=== PATIENT | female | born 1975 | race Caucasian/White ===

== ENCOUNTER 2022-07-17 04:20 | Emergency (ER) | payer OTHER, SELFPAY ==
--- NOTE | 2022-07-17 04:45 | RAD_ITS ---
INDICATION: PALPITATIONS EXAMINATION/TECHNIQUE: X-RAY - XR Chest 1 View COMPARISON: Chest radiograph 12/24/2015. Findings: Single frontal view of the chest. LUNG PARENCHYMA: No acute focal airspace disease or mass lesion. PLEURA: No pleural effusion. No pneumothorax. HEART/GREAT VESSELS: Cardiomediastinal silhouette is unremarkable. BONES: Osseous structures are unremarkable for age. RAD/Chest 1 View (Portable) IMPRESSION: Chest with no acute disease. Electronically Signed: Elder Phillips MD at 5:14 EDT ,
--- NOTE | 2022-07-17 06:15 | EX.ED.DYSGE1 ---
HPI History of Present Illness Chief Complaint: Hypertension Informant: patient Narrative Narrative: Patient presents secondary to elevated blood pressure. She is a history of hypertension but has been off of her blood pressure medication for a little over a year. She states last evening and then waking in the middle the night tonight she felt a pulsating sensation in her ears. She checked her blood pressure at home and systolic pressure was in the 160s. Her heart rate was in the 80s. She denies chest pain. PFSH PFSH Medical History Hypertension Obstructive sleep apnea Home Medications l.norgest-eth.estradiol triphasic 50-30 (6)/75-40(5)/125-30(10) tablet (Myzilra) 1 ea PO DAILY 12/24/15 [History Last Taken 12/23/15] hydrocodone-acetaminophen 5-325mg 5mg-325mg (Barclay) 1 - 2 ea PO Q4H PRN PRN Pain #20 tabs 03/28/16 [Rx Last Taken Unknown] Allergy/AdvReac Type Severity Reaction Status Date / Time Penicillins [PCN] Allergy Rash Verified 03/28/16 11:15 Social History Smoking Status: Never smoker ROS ROS ED Constitutional Constitutional ED: Denies chills or fever(s) Eyes Eyes: Denies change in vision or discharge from eye(s) ENT ENT ED: Denies discharge from eye(s), rhinorrhea or sore throat Cardiovascular Cardiovascular: Denies chest pain or palpitations Respiratory/Chest Respiratory/Chest: Denies cough or dyspnea Gastrointestinal Gastrointestinal: Denies abdominal pain, diarrhea, nausea or vomiting Genitourinary Genitourinary ED: Denies dysuria Musculoskeletal Musculoskeletal: Denies back pain or extremity pain Integumentary Denies Abrasions or rash Neurologic Neurologic: Denies headache(s) or weakness Allergic/Immunologic Allergic/Immunologic ED: Denies lip swelling or urticaria EXAM Physical Exam Const Positive well nourished and well developed General Appearance ED: well developed HEENT Reports normocephalic and head/scalp atraumatic Eyes PERRL and EOMs intact bilaterally Neck supple Chest Wall inspection of chest normal and palpation of chest normal Resp normal respiratory effort and clear to auscultation bilaterally Cardio regular rate and regular rhythm GI normal to inspection, nondistended, normoactive bowel sounds Palpation: soft Extremity normal to inspection Neuro oriented x3 and no sensory deficits noted Sensorium / Orientation: alert Motor Exam: strength 5/5 throughout Psych mental status grossly normal Skin no rashes or lesions noted MDM MDM MDM Narrative Medical decision making narrative: 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 EKG obtained to evaluate for cardiac arrhythmia/ischemia. Chest x-ray obtained to evaluate for acute lung pathology, cardiac size, or mediastinal abnormality. Labwork obtained to evaluate for leukocytosis, anemia, and electrolyte derangement. Lab Data Attestation: I reviewed the patient's lab results. Lab results narrative: CBC and chemistry studies unremarkable. Troponin is normal at 5. Radiography Chest X-Ray - ED: 1 View, Read by ED Physician, Normal, Heart, Lungs and Mediastinum EKG Initial EKG: Attestation: I personally reviewed and interpreted this EKG as follows: Interpretation: Sinus Rhythm (Sinus at 81 bpm with no acute ischemia.) Differential Diagnosis Chest pain/SOB: ACS ACS: Positive for no evidence of ACS based on cardiac biomarkers and EKG without ischemia and aortic dissection Reason(s) Aortic dissection less likely:: Positive for normal vascular exam, normal neurological exam and no widened mediastinum on CXR Treatment and Re-Evaluation :: On repeat evaluation patient's resting comfortably. Her systolic blood pressure has been in the 130s and 140s after her initial blood pressure was elevated at 179/98. Heart rate has been normal. Work-up at this time reveals no evidence of any organ damage from hypertension. I did recommend she keep a journal of her blood pressures over the next week or 2 and follow-up with her primary care physician. This will help them determine if she needs to be restarted on her blood pressure medication. Return instructions have been provided. Discharge Plan Triage Chief Complaint: Hypertension ED Provider: Debora Tolentino Dx/Rx/DC Orders Clinical Impression: Hypertension Instructions: ED Hypertension, To Be Confirmed Prescriptions: No Action levonorg-eth estrad triphasic [Myzilra] 1 EACH tablet 1 ea PO DAILY hydrocodone-acetaminophen [Barclay] 1 EACH tablet 1 - 2 ea PO Q4H PRN PRN (Reason: Pain) Qty: 20 0RF Primary Care Provider: Shaun Watkins Referrals: Shaun Watkins MD [Primary Care Provider] - 1-2 Weeks Disposition Disposition: Home, Self Care
[2022-07-17 08:24] LABS: Anion Gap 7 (5-15); BUN 10 mg/dL (7-18); BUN/Creat Ratio 13.2 RATIO (10-20); Calcium,Total 8.3 mg/dL (8.5-10.1); Chloride 106 mmol/L (98-107); Creatinine, Serum 0.76 mg/dL (0.55-1.02); EST Glomerular Filtration Rate 86 mL/min (>60); Est Glom Filt Rate - Afr Amer 104 mL/min (>60); Glucose 108 mg/dL (74-106); Potassium 3.5 mmol/L (3.5-5.1); Sodium Level 138 mmol/L (136-145); Troponin-I HS 5 pg/mL (3.0-54.0)
[2022-07-17 10:36] LABS: Hematocrit 38.8 % (37-47); Hemoglobin 13.2 g/dL (12.0-15.0); Red Blood Count 4.17 M/mm3 (4.2-5.4); White Blood Count 8.8 K/mm3 (4.4-11.0)
[2022-07-17 10:50] LABS: Basophil% 0.3 % (0-1); Eosinophils% 2.6 % (0-5); Lymphocyte % 40.8 % (19-41); Mean Corpuscular Hgb 31.7 pg (27.0-32.0); Mean Platelet Vol. 8.4 fl (6.2-12.0); Monocyte% 6.9 % (0-10); Neutrophil % 49.2 % (47-70); Platelet Count 277 K/mm3 (150-450); RBC Distribution Width CV 12.9 % (11.6-14.6); RBC Distribution Width SD 44.2 fl (35.1-43.9)
[2022-07-17 10:51] LABS: Absolute Lymphocyte Count 3.59 X10^3/uL (0.83-4.51); Absolute Neutrophil Count 4.3 X10^3/uL (2.0-7.7); Basophil# 0.03 X10^3/uL; Eosinophil# 0.23 X10^3/uL; Lymphocyte # 3.59 X10^3/ul (0.83-4.51); Monocyte# 0.61 X10^3/uL; NRBC Flagged by Analyzer 0 % (0-5); Neutrophil # 4.31 X10^3/uL (2.7-7.7)
== END 2022-07-17 06:25 | disposition home or self-care (01) ==
PROVIDERS: Emergency Provider Emergency Medicine; PCP Family Medicine; Visit Provider Emergency Medicine
DX: I10 Essential (primary) hypertension (principal); G47.33 Obstructive sleep apnea (adult) (pediatric)
CPT/HCPCS: 36415; 71045; 80048; 84484; 85025; 93005; 99284; A4216

== ENCOUNTER 2024-11-27 20:47 | Emergency (ER) | payer BC, SELFPAY ==
[2024-11-27 20:47] VITALS: BP 167/101; PULSE 102; RESP 18; TEMP 36.4; O2SAT 98; BMI 41.5
--- NOTE | 2024-11-27 22:03 | ED.VIS.FEGU ---
HPI HPI - Female History of Present Illness Chief Complaint: Vag Bleeding Informant: patient Pain Pain: Positive for Pelvic Pain Timing: Intermittent Quality: Positive for Cramping Current Severity: Gone Maximum Severity: Moderate Bleeding Issue: Positive for Vaginal bleeding and Passing clots Onset: Days Timing: Intermittent Associated Symptoms Associated Symptoms: Negative for Dysuria Test: Positive Control: No control P: 4 Ab: 0 Narrative Narrative: 49-year-old female history of hypertension. For the last year has had intermittent heavy vaginal bleeding. Sometimes she will miss her period of the times of the heavy. Last month she had 15 days of heavy bleeding. She saw a nurse practitioner at the [facility] reportedly they did blood work she was not anemic. Ultrasound showed adenomyosis. They are planning on doing a uterine biopsy. She denies any prior [employer] surgeries. She is on no blood thinners. Prior similar symptoms: Yes Recent Illness/Hospitalization: No PFSH PFSH Medical History Adenomyosis Obstructive sleep apnea Hypertension Home Medications ?Medication ?Instructions ?Recorded ?Last Taken ?Type cholestyramine (with sugar) 4 gram 4 ea PO DAILY 11/27/24 Unknown History oral powder lisinopril 20 mg tablet 20 mg PO DAILY 11/27/24 Unknown History Allergy/AdvReac Type Severity Reaction Status Date / Time Penicillins (PCN) Allergy Rash Verified 11/27/24 20:47 Social History Smoking Status: Never smoker ROS ROS ED ROS Narrative Vaginal bleeding intermittent cramping. Constitutional Constitutional ED: Denies chills or fever(s) ENT ENT ED: Denies ear pain Cardiovascular Cardiovascular: Denies chest pain Respiratory/Chest Respiratory/Chest: Denies cough or dyspnea Gastrointestinal Gastrointestinal: Denies abdominal pain Genitourinary Genitourinary ED: Denies dysuria Musculoskeletal Musculoskeletal: Denies arthralgias Integumentary Denies abscess Neurologic Neurologic: Denies headache(s) Endocrine Endocrinology: Denies heat intolerance Hematologic/Lymphatic Hematologic/Lymphatic: Denies easy bleeding, easy bruising or lymphadenopathy Allergic/Immunologic Allergic/Immunologic ED: Denies mouth swelling, tongue swelling or urticaria EXAM Physical Exam Narrative Exam Narrative: 49-year-old female sitting upright in bed. at bedside. Vital signs are stable afebrile. H EENT exam pupils round reactive light. Moist mucous membranes. Lungs clear to auscultation bilaterally. Heart regular rhythm rate about 100 no murmur. Chest wall ribs nontender. Abdomen soft nontender. No peritoneal signs. Moving all 4 extremities. Nontender no edema. Back exam nontender. Neurologically she is awake and alert. Answering questions following commands. Const Vital Signs: 11/27/24 20:47 11/27/24 22:47 Temperature 97.6 F L Temperature Source Temporal Pulse Rate 102 H 83 Respiratory Rate 18 15 Blood Pressure 167/101 H 125/83 H Blood Pressure Mean 123 97 Pulse Ox 98 98 Oxygen Delivery Method Room Air Room Air Positive well nourished and well developed; Negative for cachectic, contractures or unkempt General Appearance ED: well developed and NAD; Negative for unkempt, cachectic or contractures Nutritional Appearance: Negative for cachectic HEENT Reports moist mucous membranes Eyes PERRL and EOMs intact bilaterally Neck no lymphadenopathy, supple and no JVD Chest Wall inspection of chest normal and palpation of chest normal Resp normal respiratory effort and clear to auscultation bilaterally Cardio regular rate, regular rhythm, S1 normal heart sound, no murmurs and no JVD GI normal to inspection, nondistended, normoactive bowel sounds, soft to palpation, non-tender, non-distended and no masses Auscultation: normoactive bowel sounds Palpation: Negative for tender, guarding or rigid Back/Spine no CVA tenderness Extremity normal to inspection and full ROM Neuro oriented x3 and CN's II-XII intact bilaterally Sensorium / Orientation: alert, oriented to person, oriented to place and oriented to time Psych mental status grossly normal Appearance: Negative for unkempt Skin no rashes or lesions noted and no wounds MDM MDM MDM Narrative Medical decision making narrative: 54-nzrd-[age]jo-year-old female with vaginal bleeding and irregular periods and heavier bleeding over the last year. This may be perimenopausal versus other etiologies. She is already had an ultrasound at the [facility] recently. I will check her blood count test set of electrolytes. Currently she is not having any pain nor does she want anything for pain. Repeat exam unchanged. Patient be discharged home with outpatient follow-up with her [facility]. History & Record Review Discussion w/independent historian: Patient and Family Additional record(s) reviewed:: Prior inpatient record, Prior outpatient record, Prior ED visit and Prior labs Lab Data Attestation: I reviewed the patient's lab results. Lab results narrative: CBC unremarkable. White count 8. H&H 12.6 and 37.2. Platelets 266. Electrolytes show a gap of 12. Normal BUN and creatinine. Glucose 102. Serum test is negative. Labs: Laboratory Results - last 24 hr 11/27/24 11/27/24 21:42 22:08 WBC 8.0 RBC 3.93 L Hgb 12.6 Hct 37.2 MCV 94.7 MCH 32.1 H MCHC 33.9 RDW Std Deviation 46.1 H RDW Coeff of Mariola 13.2 Plt Count 266 MPV 8.8 Sodium 139 Potassium 4.2 Chloride 104 Carbon Dioxide 23.0 Anion Gap 12 BUN 12 Creatinine 0.70 Estim Creat Clear Calc 115.17 Est GFR (MDRD) Non-Af 105 BUN/Creatinine Ratio 17.7 Glucose 102 H Calcium 9.0 Serum , Qual NEGATIVE Discharge Plan Triage Chief Complaint: Vag Bleeding ED Provider: Eldon Carlson Dx/Rx/DC Orders Clinical Impression: Abnormal vaginal bleeding Instructions: ED Dysfunctional Uterine Bleeding Prescriptions: No Action lisinopril 20 mg tablet 20 mg PO DAILY cholestyramine (with sugar) 4 gram powder 4 ea PO DAILY Primary Care Provider: Shaun Watkins Referrals: Debora Mg MD [Med Staff - Active Staff] - As soon as possible Shaun Watkins MD [Primary Care Provider] - Activity Restrictions/Additional Instructions: Follow-up with one of the [facility] doctors [facility] at the local [facility] facility. Your blood counts were good tonight. Print Language: Micronesian Disposition Disposition: Home, Self Care
[2024-11-27 22:14] LABS: Hematocrit 37.2 % (37-47); Hemoglobin 12.6 g/dL (12.0-15.0); Mean Corp Hgb Conc 33.9 g/dL (32-36); Mean Corpuscular Volume 94.7 fL (81-99); Mean Platelet Vol. 8.8 fl (6.2-12.0); Platelet Count 266 K/mm3 (150-450); RBC Distribution Width CV 13.2 % (11.6-14.6); RBC Distribution Width SD 46.1 fl (35.1-43.9); Red Blood Count 3.93 M/mm3 (4.2-5.4); White Blood Count 8.0 K/mm3 (4.4-11.0)
--- OUTSIDE RECORDS SUMMARY | 2024-11-27 22:17 | XMS RPT_ITS | CCD ---
Author Organization [facility] Care Team Providers Care Beekeeper Farmer Name Role Phone DUANE ROWLAND Unavailable Unavailable Debora Tolentino Attending Unavailable Duane Rowland Primary Care Unavailable Duane Rowland MD Primary Care Provider Duane Rowland MD Primary Care Provider Tannhof MEDIA CLERK.Marilee HORAN Unavailable Arthur MEDIA CLERK.Alfredo HORAN Unavailable MAXIMILIANO MARROQUIN Referring Unavailable DUANE ROWLAND Primary Care Unavailable MAXIMILIANO MARROQUIN Referring Unavailable DUANE ROWLAND Primary Care Unavailable MAXIMILIANO MARROQUIN Attending Unavailable DUANE ROWLAND Primary Care Unavailable MAXIMILIANO MARROQUIN Referring Unavailable DUANE ROWLAND Primary Care Unavailable Allergies Allergy Classification Reported Allergen(s) Allergy Type Date of Onset Reaction(s) Facility Penicillins (antibiotic) (3 sources) Penicillins Drug Allergy 5 [facility] (20 sources) Penicillins; Translations: [PENICILLINS] Propensity to adverse reactions to drug (disorder) 5 [facility] Medications Current Medications Medication Drug Class(es) Dates Sig (Normalized) Sig (Original) acetaminophen 325 mg / HYDROcodone bitartrate 5 mg oral tablet (1 source) Opioid Agonist Start: 03-28-2016 Hydrocodone-Acetam inophen ([place] 5-325 Tablet) 1 EACH tablet Active 1 - 2 EACH PO EVERY 4 HOURS NEEDED March 28, 2016 2:29pm azithromycin 500 mg oral tablet (1 source) Macrolide Antimicrobial Start: 05-18-2022 End: 05-23-2022 take 1 tablet by mouth once daily azithromycin (ZITHROMAX) 500 mg tablet Take 1 tablet by mouth once daily for 5 days. 5 tablet 0 05/18/2022 05/23/2022 Active Comment on above: Take 1 tablet by chula once daily for 5 days. Blood Pressure Test Kit-Large kit (20 sources) Start: 02-04-2019 Blood Pressure Test Kit-Large kit Indications: Hypertension, unspecified type 1 Each once daily. 1 Kit 02/04/2019 Active Start: 02-04-2019 Blood Pressure Test Kit-Large kit Indications: Hypertension, unspecified type 1 Each once daily. 1 Kit 0 02/04/2019 Active Comment on above: 1 Each once daily. Blood Pressure Test Kit-Wrist (BLOOD PRESSURE UNIT) kit (20 sources) Start: 01-03-2019 Blood Pressure Test Kit-Wrist (BLOOD PRESSURE UNIT) kit Indications: Hypertension, unspecified type 1 Each once daily. 1 Kit 01/03/2019 Active Start: 01-03-2019 Blood Pressure Test Kit-Wrist (BLOOD PRESSURE UNIT) kit Indications: Hypertension, unspecified type 1 Each once daily. 1 Kit 0 01/03/2019 Active Comment on above: 1 Each once daily. cholestyramine resin 4000 mg powder for oral suspension (20 sources) Bile Acid Sequestrant Start: 01-06-2022 End: 08-12-2023 take 4 g by mouth once daily cholestyramine- sucrose (QUESTRAN) 4 gram powder Take 4 g by mouth once daily. 378 g 11 08/12/2023 Active Start: 04-03-2020 End: 01-04-2022 take 4 g by mouth once daily cholestyramine-sucrose (QUESTRAN) 4 gram powder Take 4 g by mouth once daily. 378 g 11 04/03/2020 01/04/2022 Discontinued Comment on above: Take 4 g by mouth on ce daily. Levonorg-Eth Estrad Triphasic (1 source) Progestin, Estrogen, Progestin-containing Intrauterine Device Start: 6 Levonorg-Eth Estrad Triphasic (Myzilra) 1 EACH tablet Active 1 EACH PO DAILY December 24, 2015 12:00am fluticasone propionate 0.05 mg/actuat metered dose nasal spray (20 sources) Corticosteroid Start: 0 take 2 spray(s) by mouth once daily fluticasone (FLONASE) 50 mcg/actuation nasal spray Use 2 Sprays in each nostril once daily. Rinse mouth after use. 1 Bottle 11 11/07/2019 Active Comment on above: Use 2 Sprays in each nostril once daily. Rinse mouth after use. lisinopril 20 mg oral tablet (20 sources) Angiotensin Converting Enzyme Inhibitor Start: 4 End: 5 take 1 tablet by mouth once daily lisinopril (ZESTRIL) 20 mg tablet Indications: Hypertension, unspecified type Take 1 tablet by mouth once daily. 30 tablet 5 05/30/2024 11/26/2024 Active Start: 01-14-2021 End: 08-07-2023 take 1 tablet by mouth once daily lisinopril (ZESTRIL) 10 mg tablet Indications: Hypertension, unspecified type Take 1 tablet by mouth once daily. 90 tablet 3 07/17/2022 08/07/2023 Discontinued Comment on above: Take 1 tablet by chula th once daily. Miscellaneous Medical Supply (BLOOD PRESSURE CUFF) mis (20 sources) Start: 02-04-2019 Miscellaneous Medical Supply (BLOOD PRESSURE CUFF) [facility] [place]ications: Hypertension, unspecified type 1 Each once daily. 1 Large Cuff. ICD-10: I10.0 Hypertension 1 Each 02/04/2019 Active Start: 02-04-2019 Miscellaneous Medical Supply (BLOOD PRESSURE CUFF) [facility] [place]ications: Hypertension, unspecified type 1 Each once daily. 1 Large Cuff. ICD-10: I10.0 Hypertension 1 Each 0 02/04/2019 Active Comment on above: 1 Each once daily. 1 Large Cuff. ICD-10: I10.0 Hypertension polymyxin b 79725 unt/ml / trimethoprim 1 mg/ml ophthalmic solution (1 source) Dihydrofolate Reductase Inhibitor Antibacterial, Polymyxin-class Antibacterial Start: 3 End: 3 take 1 drop(s) into the eye(s) four times daily trimethoprim-polymy leticia (POLYTRIM) 10,000 unit- 1 mg/mL ophthalmic solution Use 1 Drop in the right eye four times daily for 7 days. 1.4 mL 0 08/25/2022 09/01/2022 Active Comment on above: Use 1 Drop in the ri ght eye four times daily for 7 days. predniSONE 10 mg oral tablet (5 sources) Start: 4 End: predniSONE (DELTASONE) 10 mg tablet Indications: Allergic contact dermatitis due to plants, except food Take 4 tabs daily x 3 days, then 3 tabs x 3 days, 2 tabs x 3 days, then 1 tab x3 days with food. 30 tablet 0 09/16/2023 09/28/2023 Active Completed/Discontinued Medications Medication Drug Class(es) Dates Sig (Normalized) Sig (Original) acetaminophen 325 mg / oxyCODONE hydrochloride 5 mg oral tablet (1 source) Opioid Agonist Start: 12-23-2015 End: 12-25-2015 take 1 tablet by mouth every four hours as needed Oxycodone-Acetamin ophen Discontinued 1 TABLET PO EVERY 4 HOURS NEEDED December 23, 2015 12:00am December 25, 2015 11:38am calcium chloride 0.0014 meq/ml / potassium chloride 0.004 meq/ml / sodium chloride 0.103 meq/ml / sodium lactate 0.028 meq/ml injectable solution (1 source) Start: 10-09-2023 End: 10-09-2023 lactated ringers iv infusion cholecalciferol 0.025 mg oral capsule (19 sources) Vitamin D Start: 09-28-2018 End: 09-21-2023 take 1 capsule by mouth once daily Cholecalciferol, Vitamin D3, 1,000 unit cap Take 1 capsule by mouth once daily. 30 capsule 11 09/28/2018 09/21/2023 Discontinued Comment on above: Take 1 capsule by [facility] once daily. CPAP (20 sources) Start: 05-17-2019 End: 11-02-2023 CPAP (Provide supplies) AutoPAP [id number], mask (pt pref), chin strap, heated tubing & humidity, filters. Lifetime supplies. CAROLINE: G47.33. Provide 30 day download to [phone] 1 Device 0 05/17/2019 11/02/2023 Discontinued Start: 05-17-2019 CPAP (Provide supplies) AutoPAP [id number], mask (pt pref), chin strap, heated tubing & humidity, filters. Lifetime supplies. CAROLINE: G47.33. Provide 30 day download to [phone] 1 Device 0 05/17/2019 Active Start: 04-05-2018 CPAP Indicatio ns: CAROLINE (obstructive sleep apnea) Initiate Auto PAP @ 5-20 cm of water with humidification. Mask (per patient preference) optional chin strap (if indicated) , filters, tubing, humidifier and lifetime supplies. 1 Device 04/05/2018 Active Start: 04-05-2018 CPAP Indicatio ns: CAROLINE (obstructive sleep apnea) Initiate Auto PAP @ 5-20 cm of water with humidification. Mask (per patient preference) optional chin strap (if indicated) , filters, tubing, humidifier and lifetime supplies. 1 Device 0 04/05/2018 Active Comment on above: Initiate Auto PAP @ 5-20 cm of water with humidification. Mask (per patient preference) optional chin strap (if indicated) , filters, tubing, humidifier and lifetime supplies. (Provide supplies) A utoPAP [id number], mask (pt pref), chin strap, heated tubing & humidity, filters. Lifetime supplies. CAROLINE: G47.33. Provide 30 day download to [phone] diphenhydrAMINE (7 sources) Histamine-1 Receptor Antagonist Start: 10-09-2023 End: 10-09-2023 diphenhydrAMINE 12.5-50 mg injection (BENADRYL) End: 11-02-2023 diphenhydramine HCl (BENADRY L ALLERGY ORAL) Take by mouth. 0 11/02/2023 Discontinued diphenhydramine HCl (BENADRYL ALLERGY ORAL) Take by mouth. 0 Active 1 ml fentaNYL 0.05 mg/ml injection (1 source) Opioid Agonist Start: 10-09-2023 End: 10-09-2023 fentaNYL 50 mcg/mL 25-100 mcg injection (SUBLIMAZE) loratadine 10 mg oral tablet (20 sources) Start: 11-07-2019 End: 11-02-2023 take 1 tablet by mouth once daily loratadine (CLARITIN) 10 mg tablet Take 1 tablet by mouth once daily. 30 tablet 11 11/07/2019 11/02/2023 Discontinued Comment on above: Take 1 tablet by chula th once daily. 5 ml midazolam 1 mg/ml injection (1 source) Benzodiazepine Start: 10-09-2023 End: 10-09-2023 midazolam 1-5 mg injection (VERSED) 2 ml ondansetron 2 mg/ml injection (1 source) Serotonin-3 Receptor Antagonist Start: 10-09-2023 End: 10-09-2023 ondansetron (PF) 4 mg injection (ZOFRAN) polyethylene glycol 3350 677132 mg / potassium chloride 2970 mg / sodium bicarbonate 6740 mg / sodium chloride 5860 mg / sodium sulfate 92059 mg powder for oral solution (2 sources) Osmotic Laxative Start: 09-21-2023 End: 09-21-2023 peg 3350-Electrolytes (GOLYTELY) 236-22.74-6.74 -5.86 gram suspension Indications: Screening for colon cancer Take 4,000 mL by mouth one time only for 1 dose. Refer to printed prep instructions from your provider. 4000 mL 0 09/21/2023 09/21/2023 Problems Active Problems Problem Classification Problem Date Documented Da te Episodic/Chronic Abdominal pain (1 source) Right flank pain; Translations: [Unspecified abdominal pain] 12-24-2015 Episodic Adjustment disorders (1 source) Stress; Translations: [Reaction to severe stress, unspecified] 08-07-2023 Chronic Allergic reactions (2 sources) Allergic contact dermatitis caused by plant material; Translations: [Allergic contact dermatitis due to plants, except food] 09-16-2023 Episodic Disorders of lipid metabolism (1 source) Mixed hyperlipidemia; Translations: [Mixed hyperlipidemia] 08-07-2023 Chronic Essential hypertension (20 sources) Essential hypertension; Translations: [Essential (primary) hypertension] Onset: 11-07-2019 11-07-2019 Chronic Inflammation; infection of eye (except that caused by tuberculosis or sexually transmitteddisease) (1 source) Bacterial conjunctivitis; Translations: [Unspecified conjunctivitis] Episodic Menopausal disorders (20 sources) Menorrhagia; Translations: [Excessive bleeding in the premenopausal period] Onset: 03-26-2012 03-26-2012 Chronic Nonmalignant breast conditions (3 sources) Breasts asymmetrical; Translations: [Other specified disorders of breast] Episodic Other female genital disorders (3 sources) Abnormal uterine bleeding; Translations: [Abnormal uterine and vaginal bleeding, unspecified] 11-04-2024 Chronic Other female genital disorders (1 source) Abnormal uterine and vaginal bleeding, unspecified; Translations: [Abnormal uterine bleeding] Onset: 11-18-2024 Chronic Other gastrointestinal disorders (1 source) Chronic constipation; Translations: [Other constipation] 08-07-2023 Episodic Other nutritional; endocrine; and metabolic disorders (11 sources) Obesity; Translations: [Other obesity due to excess calories] Onset: 02-27-2005 08-16-2018 Chronic Other nutritional; endocrine; and metabolic disorders (20 sources) Obesity caused by energy imbalance; Translations: [Other obesity due to excess calories] Onset: 02-27-2005 08-16-2018 Chronic Other nutritional; endocrine; and metabolic disorders (1 source) Body mass index 40+ - severely obese; Translations: [Body mass index (BMI) 40.0-44.9, adult] 09-22-2023 Chronic Other screening for suspected conditions (not mental disorders or infectious disease) (20 sources) Patient encounter status; Translations: [Encounter for screening mammogram for malignant neoplasm of breast] Onset: 10-09-2023 Episodic Other upper respiratory infections (3 sources) Streptococcal sore throat; Translations: [Streptococcal pharyngitis] Episodic Residual codes; unclassified (20 sources) Obstructive sleep apnea syndrome; Translations: [Obstructive sleep apnea (adult) (pediatric)] Onset: 05-18-2019 05-18-2019 Chronic Unclassified (1 source) Obstructive sleep apnea (adult) (pediatric); Translations: [Obstructive sleep apnea (adult) (pediatric)] Onset: 01-15-2018 Chronic Unclassified (1 source) Dense breast tissue; Translations: [Dense breast tissue] Onset: 10-05-2024 Past or Other Problems Problem Classification Problem Date Documented Date Episodic/Chronic Biliary tract disease (20 sources) Postcholecystectomy syndrome; Translations: [Postcholecystectomy syndrome] Onset: 8 12-15-2017 Episodic Calculus of urinary tract (20 sources) Kidney stone; Translations: [Calculus of kidney] Onset: 8 12-15-2017 Episodic Other circulatory disease (20 sources) Elevated blood-pressure reading without diagnosis of hypertension; Translations: [Elevated blood-pressure reading, without diagnosis of hypertension] Onset: 5 02-27-2005 Episodic Other and delivery including normal (17 sources) Normal ; Translations: [Encounter for supervision of other normal , unspecified trimester] Onset: 8 Resolved: 2 03-26-2012 Episodic Other upper respiratory disease (20 sources) Nasal congestion; Translations: [Nasal congestion] Onset: 9 08-18-2018 Episodic Unclassified (1 source) Patient encounter status 11-04-2024 Results Test Name Value Interpretation Reference Range Facility [facility] 11-20-2024 Indication Abnormal uterine bleeding Impression Suboptimal images due to axial position of uterus. Normal appearing anteverted, axial uterus that measures 121 mm x 57 mm x 61 mm. Heterogeneous myometrium which is suggestive of adenomyosis. Endometrium measures 7.8 mm on Day 27 of cycle. Right ovary is not visualized. Left ovary has a normal appearance. In the left adnexa, there are two unilocular simple paraovarian/paratubal cysts. 1. Size 39.0 mm x 49.0 mm x 5.0 mm 2. Size 22.0 mm x 17.0 mm x 22.0 mm There is no free fluid visualized in the peritoneal cavity. There is no prior imaging available for comparison. Recommendations O-RADS 2 left adnexal simple cysts, almost certainly benign. No follow up imaging is needed. Menstrual History LMP on 10/23/2024. Day of cycle 27. Cycle: irregular cycle. Bleeding duration 14 d to 15 d. prolonged menses: 15 days Method Transabdominal, transvaginal, 3D ultrasound examination, Color Doppler examination. View: Suboptimal view: restricted by increased bowel gas Uterus Uterus: Visualized Uterus details: sub-opt Uterus position: anteverted, axial Myometrium: heterogeneous Endometrium: endometrial midline: not well defined Cervix details: cystic lesions identified suggesting superficial Nabothian cysts Uterus length 121 mm Uterus width 61 mm Uterus height 57 mm Uterus Vol 222.2 cm Endometrial thickness, total 7.8 mm Right Ovary Rt ovary: Not visualized Left Ovary Lt ovary: Visualized Lt ovary D1 26 mm Lt ovary D2 33 mm Lt ovary D3 23 mm Lt ovary Vol 10.2 cm Left Adnexal Mass Lt adnex mass findings: Simple paraovarian/paratubal cyst Lt adnex mass D1 39.0 mm Lt adnex mass D2 49.0 mm Lt adnex mass D3 5.0 mm Lt adnex mass mean 31.0 mm Lt adnex mass vol 5.003 cm Lt adnex mass findings: Simple paraovarian/paratubal cyst Lt adnex mass D1 22.0 mm Lt adnex mass D2 17.0 mm Lt adnex mass D3 22.0 mm Lt adnex mass mean 20.3 mm Lt adnex mass vol 4.308 cm Cul de Sac Visualized. no free fluid visualized Performed By: Ryanne Wills RDMS Read By: Vidya Torres M.D. MATERNAL MEDICINE [facility] 11-18-2024 Radiology Study observation (narrative) [facility] CBC panel Auto (Bld)on 11-04 Erythrocyte distribution width (RBC) [Ratio] 13.2 % 11.5 - 15.0 % [facility] Hematocrit (Bld) [Volume fraction] 38.2 % 36.0 - 46.0 % [facility] Hemoglobin (Bld) [Mass/Vol] 13 g/dL 11.5 - 15.5 g/dL [facility] Interpretation and review of laboratory results Abnormal [facility] MCH (RBC) [Entitic mass] 31.5 pg 26.0 - 34.0 pg [facility] MCHC (RBC) [Mass/Vol] 34 g/dL 30.5 - 36.0 g/dL [facility] MCV (RBC) [Entitic vol] 92.5 fL 80.0 - 100.0 fL [facility] Nucleated RBC (Bld) [#/Vol] NINF [facility] Platelet mean volume (Bld) [Entitic vol] 8.5 fL Low 9.0 - 12.7 fL [facility] Platelets (Bld) [#/Vol] 282 10*3/uL [facility] RBC (Bld) [#/Vol] 4.13 10*6/uL 3.90 - 5.2 0 m/uL [facility] WBC (Bld) [#/Vol] 7.57 10*3/uL [facility] Erythrocyte distribution width (RBC) [Ratio] 13.2 % Normal 11.5-15.0 [facility] Comment on above: Order Comment: Speci men Type: BLOOD SPECIMEN Ordering Facility: [facility] Address: [address] [place] [address] Performed By: #### 5 8410-2 #### [id number] [address] [place], [place] [id number] [place] Hematocrit (Bld) [Volume fraction] 38.2 % Normal 36.0-46.0 [facility] Comment on above: Order Comment: Speci men Type: BLOOD SPECIMEN Ordering Facility: [facility] Address: [address] [place] [address] Performed By: #### 5 8410-2 #### [facility] CLIA [id number] [address] [place] [address] [place] Hemoglobin (Bld) [Mass/Vol] 13.0 g/dL Normal 11.5-15.5 [facility] Comment on above: Order Comment: Speci men Type: BLOOD SPECIMEN Ordering Facility: [facility] Address: [address] [place] [address] Performed By: #### 5 8410-2 #### [facility] CLIA [id number] [address] [place] [address] [place] MCH (RBC) [Entitic mass] 31.5 pg Normal 26.0-34.0 [facility] Comment on above: Order Comment: Speci men Type: BLOOD SPECIMEN Ordering Facility: [facility] Address: [address] [place] [address] Performed By: #### 5 8410-2 #### [facility] [id number] [address] [place] [address] [place] MCHC (RBC) [Mass/Vol] 34.0 g/dL Normal 30.5-36.0 [facility] Comment on above: Order Comment: Speci men Type: BLOOD SPECIMEN Ordering Facility: [facility] Address: [address] [place] [address] Performed By: #### 5 8410-2 #### [facility] [id number] [address] [place] [address] [place] MCV (RBC) [Entitic vol] 92.5 fL Normal 80.0-100.0 [facility] Comment on above: Order Comment: Speci men Type: BLOOD SPECIMEN Ordering Facility: [facility] Address: [address] [place] [address] [place] [address] Performed By: #### 5 8410-2 #### [facility] CLIA [id number] [address] [place] [address] [place] Nucleated RBC (Bld) [#/Vol] 10*3/uL Normal <0.01 [facility] Comment on above: Order Comment: Speci men Type: BLOOD SPECIMEN Ordering Facility: [facility] Address: [address] [id number] Performed By: #### 5 8410-2 #### [facility] CLIA [id number] [address] [place] [address] [place] Platelet mean volume (Bld) [Entitic vol] 8.5 fL Low 9.0-12.7 [facility] Comment on above: Order Comment: Speci men Type: BLOOD SPECIMEN Ordering Facility: [facility] Address: [address] [id number] Performed By: #### 5 8410-2 #### [facility] CLIA [id number] [address] [place] [address] [place] Platelets (Bld) [#/Vol] 282 10*3/uL Normal 150-400 [facility] Comment on above: Order Comment: Speci men Type: BLOOD SPECIMEN Ordering Facility: [facility] Address: [address] [place] [address] Performed By: #### 5 8410-2 #### [facility] CLIA [id number] [address] [place] [address] [place] RBC (Bld) [#/Vol] 4.13 10*6/uL Normal 3.90-5.20 [facility] Comment on above: Order Comment: Speci men Type: BLOOD SPECIMEN Ordering Facility: [facility] Address: [address] [place] [address] Performed By: #### 5 8410-2 #### [facility] CLIA [id number] [address] [place] [address] [place] WBC (Bld) [#/Vol] 7.57 10*3/uL Normal 3.70-11.00 [facility] Comment on above: Order Comment: Speci men Type: BLOOD SPECIMEN Ordering Facility: [facility] Address: [address] [place] [address] Performed By: #### 5 8410-2 #### [facility] CLIA [id number] [address] [place], [place] [id number] [place] [facility] 11-04-2024 CNOV Office Visit (OBGYWM ) BROOKE NELSON ([id number]) 1975 F Date Time Provider Department 11/04/24 7:15 AM MAXIMILIANO MARROQUIN During your visit today, we recorded the following information about you: Blood pressure Weight Height Last Period 120/66 108 kg 1.626 m 10/23/24 Maximiliano Marroquin APRN.CLOTH CUTTER 11/04/2024 7:36 AM Signed Gear Cutting Machine Operator offered: Patient declines. Head is a 49 year old who presents for an annual gynecologic exam with concerns of irregular periods that range in heaviness of flow. Periods were irregular to minimal last year. 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 Postmenopausal: No. HRT use: No. 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 History LMP: 10/18/2023 (Approximate), Having periods Age at Menarche: Age at First : Age at Menopause: Mortgage Broker History Comments: Sexual Activity: Yes; Male Contraception: No contraception data on record PAST MEDICAL HISTORY Diagnosis Date Essential hypertension, benign After pregnancies Kidney stone Obesity CAROLINE (obstructive sleep apnea) Post-cholecystectomy syndrome PAST SURGICAL HISTORY Procedure Laterality Date CHOLECYSTECTOMY 12/2015 COLONOSCOPY SCREENING 09/2023 NEPHROLITHOTOMY REMOVAL STAGE 1 03/2016 blasted PAST SURGICAL HISTORY OF 1987 Eye surgery as a child for hole in retina PAST SURGICAL HISTORY OF [place] tooth extraction TONSILLECTOMY AND ADENOIDECTOMY FAMILY HISTORY Problem Relation Age of Onset Diabetes Mother Diabetes Father Hypertension Father Diabetes Maternal Grandfather Heart Maternal Grandfather NE other (spherocytosis) Son SOCIAL HISTORY Social History Tobacco Use Smoking status: Never Smokeless tobacco: Never Vaping Use Vaping status: Never Used Substance Use Topics Alcohol use: No Drug use: No REVIEW OF SYSTEMS Abdomen: No abdominal pain, nausea, vomiting, diarrhea, or constipation. No bloating, early satiety, indigestion, or increased flatulence. Bladder: No dysuria, gross hematuria, urinary frequency, urinary urgency, or incontinence Breast: No breast lumps, nipple d/c, overlying skin changes, redness or skin retraction Allergies and current medication updated:Yes SENSITIVE EXAM: The sensitive examination was discussed with the Patient or Patient's Authorized Vacuum Caster. As applicable, any other physician, advance practice provider, medical student, or other health professional student that will be observing or involved in the sensitive examination for educational or training purposes was discussed with the Patient or Authorized Vacuum Caster. The Patient or Authorized Vacuum Caster has agreed to proceed with the sensitive examination. (Sensitive examination includes inspection and/or palpation of the breasts, pelvis, prostate and anorectal regions). EXAM: BP 120/66 Ht 5' 4 (1.63m) Wt 238 lb (108.0kg) LMP 10/23/2024 BMI 40.83 kg/(m2). GENERAL: pleasant, female in no apparent distress HEENT: Normocephalic, atraumatic, mucus membranes moist, and no lesions NECK: Supple, full range of motion, no adenopathy, and thyroid normal DERMATOLOGY: Normal, without lesions, non-icteric, and non-hirsute BREAST: soft, non-tender, symmetric, no dominant mass, normal nipple-areolar complex, no lymphadenopathy, and no nipple discharge CHEST: Normal inspiratory effort ABDOMEN: soft, non-tender, and no masses PELVIC: external genitalia normal, normal Bartholin's glands, urethra, Sarita's glands, no vulvar lesions, + difficult to visualize cervix due to menses and vaginal lewis, good vaginal support, + menses, normal appearing perineal body and perianal region BIMANUAL: uterus normal size, shape and consistency, no adnexal masses + mild tenderness with palpation RECTOVAGINAL: deferred. NEURO: alert and oriented x3,exam grossly non-focal EXTREMITIES: normal ASSESSMENT/PLAN: 1) Health maintenance: Pap/HPV up to date 2023. Mammogram ordered Nutrition, exercise and routine health maintenance exams reviewed. Calcium/Vitamin D supplementation information provided. Colon cancer screening: up to date with screening TSH/lipids/glucose: followed by PCP 2) Follow up one year or sooner as needed Abnormal uterine bleeding - ICD9: 626.9, ICD10: N93.9 - Labs and ultrasound ordered - Will likely ne (more content not included)... Normal [facility] Estradiol [facility] 11-04 E2 [Mass/Vol] 96 pg/mL Normal [facility] Comment on above: Order Comment: Speci men Type: BLOOD SPECIMEN Ordering Facility: [facility] Address: [address] [place] [address] Result Comment: This test is not suitable for patients receiving treatment with the drug Fulvestrant (Faslodex). The drug causes an interference leading to falsely elevated estradiol results. Menstrual cycle Estradiol reference ranges: Follicular : < 234 pg/mL Ovulation : 41 to 398 pg/mL Luteal : < 342 pg/mL Estradiol reference ranges vary by gestational period: First trimester : 154 to 3243 pg/mL Second trimester : 1561 to 55676 pg/mL Third trimester : 8285 to >63129 pg/mL Post-menopausal Estradiol reference range: < 41 pg/mL Reference: 1. Estradiol - E2 (Estradiol III) [package insert V 3.0 Setswana]. [facility], [place], [place], September 2015. Performed By: #### 1 5067-2, 2243-4, 3024-7, 3016-3 #### [facility] CLIA [id number] [address] [place] [address] [place] FSH SerPl-aCncon 11-04-2024 Follitropin Qn 7.1 m[IU]/mL Normal See comment [facility] [place] Comment on above: Order Comment: Speci men Type: BLOOD SPECIMEN Ordering Facility: [facility] Address: [address] [place] [address] Result Comment: Refe rence range: Follicular: 3.5-12.5 mIU/mL Ovulation: 4.7-21.5 mIU/mL Luteal: 1.7-7.7 mIU/mL Postmenopausal: 25.8-134.8 mIU/mL Performed By: #### 1 5067-2, 2243-4, 3024-7, 3016-3 #### [facility] CLIA [id number] [address] [place] [address] [place] Glucose p fast SerPl-mCncon 11-04-2024 Glucose post fast [Mass/Vol] 104 mg/dL High 74-99 [facility] Comment on above: Order Comment: Pascuali men Type: BLOOD SPECIMEN Ordering Facility: [facility] Address: [address] [place] [address] Result Comment: Amer [place] Diabetes Association guidelines state that a diabetes mellitus diagnosis is preliminarily made when the fasting plasma glucose meets or exceeds 126 mg/dL. In the absence of unequivocal hyperglycemia, results should be confirmed with repeat testing. Patients are at increased risk for diabetes mellitus (prediabetes) when the fasting glucose is 100 to 125 mg/dL. Performed By: #### 1 558-6 #### [facility] CLIA [id number] [address] [place] [address] [place] HbA1c (Bld)on 11-04-2024 Average glucose Estimated from glycated hemoglobin (Bld) [Mass/Vol] 108 mg/dL Normal [facility] Comment on above: Order Comment: Pascuali men Type: BLOOD SPECIMEN Ordering Facility: [facility] Address: [address] [place] [address] Result Comment: eAG: (Estimated average glucose) is a calculated value from HgbA1c and is outside sales account representative of the average blood glucose level in the last 2-3 month period. Performed By: #### 5 5454-3 #### [facility] CLIA [id number] [address] [place] [address] [place] HbA1c (Bld) [Mass fraction] 5.4 % Normal 4.3-5.6 [facility] Comment on above: Order Comment: Speci men Type: BLOOD SPECIMEN Ordering Facility: [facility] Address: [address] [place] [address] Result Comment: Amer ican Diabetes Association guidelines indicate that patients with HgbA1c in the range 5.7-6.4% are at increased risk for development of diabetes, and intervention by lifestyle modification may be beneficial. HgbA1c greater or equal to 6.5% is considered diagnostic of diabetes. Performed By: #### 5 5454-3 #### [facility] CLIA [id number] [address] [place] [address] [place] T4 Free SerPl-mCncon 025 Free T4 [Mass/Vol] 1.0 ng/dL Normal 0.9-1.7 [facility] Comment on above: Order Comment: Speci men Type: BLOOD SPECIMEN Ordering Facility: [facility] Address: [address] [place] [address] Performed By: #### 1 5067-2, 2243-4, 3024-7, 3016-3 #### [facility] CLIA [id number] [address] [place] [address] [place] TSH SerPl-aCncon 11-04-2024 TSH Qn 2.310 m[IU]/L Normal 0.270-4.200 [facility] Comment on above: Order Comment: Speci men Type: BLOOD SPECIMEN Ordering Facility: [facility] Address: [address] [place] [address] Performed By: #### 1 5067-2, 2243-4, 3024-7, 3016-3 #### [facility] CLIA [id number] [address] [place] [address] [place] [id number] [place] THELMA SCREENING W TOMOon 10-05 THELMA SCREENING W MARCO ANTONIO * * *Final Report* * * DATE OF EXAM: Oct 05 2024 1:31PM [id number] [id number] - THELMA SCREENING W MARCO ANTONIO / PROCEDURE REASON: multiple diagnoses * * * * Physician Interpretation * * * * RESULT: [facility] ER [address] [place] [address] #[id number] - THELMA SCREENING W MARCO ANTONIO HISTORY: 49 year-old patient presents for screening. Patient is asymptomatic in both breasts. Patient states no personal history of breast cancer. COMPARISON STUDIES: The present examination has been compared to prior imaging studies dated 09/17/2017 (mammogram), 01/11/2019 (mammogram), 10/16/2021 (mammogram), 11/19/2021 (mammogram) and 10/05/2023 (mammogram). MAMMOGRAM TECHNIQUE: The study was acquired using full field digital technology and interpreted from soft copy. Digital Breast Tomosynthesis (DBT) images were obtained and used to assist in the interpretation of this examination. MAMMOGRAM FINDINGS: The breasts are almost entirely fatty. No suspicious masses, calcifications or other abnormalities are seen in either breast. There are no significant interval changes. IMPRESSION: There is no mammographic evidence of malignancy in either breast. Routine screening mammogram is recommended. Annual mammogram will be due in 1 year. BI-RADS Category 1: Negative RISK: Based on the Tyrer-Cuzick (TC) risk assessment model, this patient has a 4.6% lifetime risk of developing breast cancer, meaning they are at average risk for developing breast cancer. However, this is only an estimate based on available history provided on the patient's questionnaire. We encourage all patients to talk with their providers about these results, further recommendations for managing breast health, and appropriate supplemental screening options if the patient has dense breast tissue. Interpreting Radiologist: Jareth Taylor M.D. Electronically signed on: 10/06/2024 Outside Operator: FELICE Transcribe Date/Time: Oct 05 2024 12:55P Dictated by: JARETH TAYLOR MD This examination was interpreted and the report reviewed and electronically signed by: JARETH TAYLOR MD on Oct 06 2024 1:07PM EST [id number] N Normal [facility] Colonoscopy Study observatio non 10-09-2023 [facility] Gastrointestinal Endoscopy Patient Name: Brooke Nelson Procedure Date: 10/09/2023 11:41 AM Date of : 1975 Admit Type: Outpatient Age: 48 Gender: Female Note Status: Finalized Procedure: Colonoscopy Indications: Screening for colorectal malignant neoplasm Providers: Jeaneth Caputo MD Patient Profile: Refer to note in patient chart for documentation of history and physical. Last Colonoscopy: none. The patient's first colonoscopy is today. Referring Physician: Jeaneth Caputo MD (Referring MD), Marilee ([facility]) Fab (Referring ) Medicines: Midazolam 5 mg IV, Fentanyl 100 micrograms IV, Diphenhydramine 50 mg IV Complications: No immediate complications. Requesting Provider: Procedure: Pre-Anesthesia Assessment: - Prior to the procedure, a History and Physical was performed, and patient medications and allergies were reviewed. The patient is competent. The risks and benefits of the procedure and the sedation options and risks were discussed with the patient. All questions were answered and informed consent was obtained. Patient identification and proposed procedure were verified by the physician in the pre-procedure area. Mental Status Examination: alert and oriented. Airway Examination: normal oropharyngeal airway and neck mobility. Respiratory Examination: clear to auscultation. CV Examination: normal. Prophylactic Antibiotics: The patient does not require prophylactic antibiotics. Prior Anticoagulants: The patient has taken no anticoagulant or antiplatelet agents. ASA Grade Assessment: III - A patient with severe systemic disease. After reviewing the risks and benefits, the patient was deemed in satisfactory condition to undergo the procedure. The anesthesia plan was to use moderate sedation / analgesia (conscious sedation). Immediately prior to administration of medications, the patient was re-assessed for adequacy to receive sedatives. The heart rate, respiratory rate, oxygen saturations, blood pressure, adequacy of pulmonary ventilation, and response to care were monitored throughout the procedure. The physical status of the patient was re-assessed after the procedure. After I obtained informed consent, the scope was passed under direct vision. Throughout the procedure, the patient's blood pressure, pulse, and oxygen saturations were monitored continuously. The Colonoscope was introduced through the anus and advanced to the cecum, identified by the appendiceal orifice, ileocecal valve and palpation. The colonoscopy was performed without difficulty. The patient tolerated the procedure well. The quality of the bowel preparation was suboptimal. There was still retained fecal material which required lavage and aspiration to visualize the lewis adequately. This was done, but took some time, however, the lewis were visualized adequately. The appendiceal orifice and the rectum were photographed. Moderate Sedation: The administration of moderate sedation was initiated at 11:45 AM. Moderate (conscious) sedation was personally administered by the endoscopist. The following parameters were monitored: oxygen saturation, heart rate, blood pressure, respiratory rate, EKG, adequacy of pulmonary ventilation, and response to care. Total physician intraservice time was 20 minutes. Findings: The perianal and digital rectal examinations were normal. Non-bleeding internal hemorrhoids were found. Impression: - Non-bleeding internal hemorrhoids. - No specimens collected. Recommendation: - Repeat colonoscopy in 10 years for screening purposes. - Return to primary care physician PRN. (more content not included)... PROVATION [facility] Radiology Study observation (narrative) [facility] COVID & INFLUENZA A/B & RSV NAAT, ROUTINEon 04-02-2023 FLUAV RNA LEONARDA+probe Ql (Unsp spec) Not detected Not Detected [facility] FLUBV RNA LEONARDA+probe Ql (Unsp spec) Not detected Not Detected [facility] RSV A RNA LEONARDA+probe Ql (Unsp spec) Detected Abnormal Not Detected [facility] SARS-CoV-2 (COVID-19) RNA LEONARDA+probe Ql (Resp) Not detected See comment [facility] STREP A MOLECULAR (POC)on Procedural Control Valid [facility] Strep A (POCT) Negative Negative [facility] Basic Metabolic Profile (BMP )on 07-17-2022 BUN/CRE 13.2 RATIO Normal - [facility] Comment on above: Order Comment: RESUL T(S) PREVIOUSLY REPORTED ON MANUAL REQUISITION DURING DOWNTIME. 1 Performed By: #### L 500.2500, L501.4020, L100.0100 #### [facility] [address] [place], [address] CA,Total 8.3 mg/dL Low 8.5-10.1 [facility] Comment on above: Order Comment: RESUL T(S) PREVIOUSLY REPORTED ON MANUAL REQUISITION DURING DOWNTIME. 1 Performed By: #### L 500.2500, L501.4020, L100.0100 #### [facility] [address] [place], [address] Chloride [Moles/Vol] 106 mmol/L Normal 98-107 [facility] Comment on above: Order Comment: RESUL T(S) PREVIOUSLY REPORTED ON MANUAL REQUISITION DURING DOWNTIME. 1 Performed By: #### L 500.2500, L501.4020, L100.0100 #### [facility] [address] [place], [address] CO2 [Moles/Vol] 25.0 mmol/L Normal 21.0-32.0 [facility] Comment on above: Order Comment: RESUL T(S) PREVIOUSLY REPORTED ON MANUAL REQUISITION DURING DOWNTIME. 1 Performed By: #### L 500.2500, L501.4020, L100.0100 #### [facility] [address] [place], [address] Creatinine [Mass/Vol] 0.76 mg/dL Normal 0.55-1.02 [facility] Comment on above: Order Comment: RESUL T(S) PREVIOUSLY REPORTED ON MANUAL REQUISITION DURING DOWNTIME. 1 Result Comment: The validity of the calculated GFR GFRAA in patients over 70 years has not been determined. Clinical correlation is essential. Performed By: #### L 500.2500, L501.4020, L100.0100 #### [facility] [address] [place], [address] EST GFR - AA 104 mL/min Normal >60 [facility] Comment on above: Order Comment: RESUL T(S) PREVIOUSLY REPORTED ON MANUAL REQUISITION DURING DOWNTIME. 1 Performed By: #### L 500.2500, L501.4020, L100.0100 #### [facility] [address] [place], [address] GAP 7 Normal 5-15 [facility] Comment on above: Order Comment: RESUL T(S) PREVIOUSLY REPORTED ON MANUAL REQUISITION DURING DOWNTIME. 1 Performed By: #### L 500.2500, L501.4020, L100.0100 #### [facility] [address] [place], [address] GFR/1.73 sq M.predicted among non-blacks MDRD (S/P/Bld) [Vol rate/Area] 86 mL/min/{1.73_m2} Normal >60 [facility] Comment on above: Order Comment: RESUL T(S) PREVIOUSLY REPORTED ON MANUAL REQUISITION DURING DOWNTIME. 1 Performed By: #### L 500.2500, L501.4020, L100.0100 #### [facility] [address] [place], [address] Glucose [Mass/Vol] 108 mg/dL High 74-106 [facility] Comment on above: Order Comment: RESUL T(S) PREVIOUSLY REPORTED ON MANUAL REQUISITION DURING DOWNTIME. 1 Result Comment: Fast ing Glucose result from 100 to 125 mg/dL suggests IMPAIRED HOMEOSTASIS per A.D.A. criteria. Performed By: #### L 500.2500, L501.4020, L100.0100 #### [facility] [address] [place], [address] Potassium [Moles/Vol] 3.5 mmol/L Normal 3.5-5.1 [facility] Comment on above: Order Comment: RESUL T(S) PREVIOUSLY REPORTED ON MANUAL REQUISITION DURING DOWNTIME. 1 Performed By: #### L 500.2500, L501.4020, L100.0100 #### [facility] [address] [place], [address] Sodium [Moles/Vol] 138 mmol/L Normal 136-145 [facility] Comment on above: Order Comment: RESUL T(S) PREVIOUSLY REPORTED ON MANUAL REQUISITION DURING DOWNTIME. 1 Performed By: #### L 500.2500, L501.4020, L100.0100 #### [facility] [address] [place], [address] Urea nitrogen [Mass/Vol] 10 mg/dL Normal 7-18 [facility] Comment on above: Order Comment: RESUL T(S) PREVIOUSLY REPORTED ON MANUAL REQUISITION DURING DOWNTIME. 1 Performed By: #### L 500.2500, L501.4020, L100.0100 #### [facility] [address] [place], [address] Basophil percentageOrdered B y: Dr. Tolentino on 07-17-2022 Chloride [Moles/Vol] 106 mmol/L 98-107 [facility] Glucose [Mass/Vol] 108 mg/dL 74-106 [facility] Comment on above: Fasting Glucose resu lt from 100 to 125 mg/dL suggests IMPAIRED HOMEOSTASIS per A.D.A. criteria. Potassium [Moles/Vol] 3.5 mmol/L 3.5-5.1 [facility] Sodium [Moles/Vol] 138 mmol/L 136-145 [facility] CBC W/Diff, Automatedon 04-0 Absolute Lymph 3.59 X10 3/uL Normal 0.83-4.51 [facility] Comment on above: Order Comment: RESUL T(S) PREVIOUSLY REPORTED ON MANUAL REQUISITION DURING DOWNTIME. Performed By: #### L 500.2500, L501.4020, L100.0100 #### [facility] [address] [place], [address] Absolute Neut 4.3 X10 3/uL Normal 2.0-7.7 [facility] Comment on above: Order Comment: RESUL T(S) PREVIOUSLY REPORTED ON MANUAL REQUISITION DURING DOWNTIME. Performed By: #### L 500.2500, L501.4020, L100.0100 #### [facility] [address] [place], [address] Nucleated RBC (Bld) [#/Vol] 0 10*3/uL Normal 0-5 [facility] Comment on above: Order Comment: RESUL T(S) PREVIOUSLY REPORTED ON MANUAL REQUISITION DURING DOWNTIME. Performed By: #### L 500.2500, L501.4020, L100.0100 #### [facility] [address] [place], [address] Basophils/100 WBC (Bld) 0.3 % Normal 0-1 [facility] Comment on above: Order Comment: RESUL T(S) PREVIOUSLY REPORTED ON MANUAL REQUISITION DURING DOWNTIME. Performed By: #### L 500.2500, L501.4020, L100.0100 #### [facility] [address] [place], [address] Eosinophils/100 WBC (Bld) 2.6 % Normal 0-5 [facility] Comment on above: Order Comment: RESUL T(S) PREVIOUSLY REPORTED ON MANUAL REQUISITION DURING DOWNTIME. Performed By: #### L 500.2500, L501.4020, L100.0100 #### [facility] [address] [place], [address] Erythrocyte distribution width (RBC) [Ratio] 12.9 % Normal 11.6-14.6 [facility] Comment on above: Order Comment: RESUL T(S) PREVIOUSLY REPORTED ON MANUAL REQUISITION DURING DOWNTIME. Performed By: #### L 500.2500, L501.4020, L100.0100 #### [facility] [address] [place], [address] IG% 0.200 Normal 0.0-0.9 [facility] Comment on above: Order Comment: RESUL T(S) PREVIOUSLY REPORTED ON MANUAL REQUISITION DURING DOWNTIME. Result Comment: IG% - Immature Granulocytes (promyelocytes, myelocytes and metamyelocytes) > 1% indicates that a LEFT SHIFT is Present. Performed By: #### L 500.2500, L501.4020, L100.0100 #### [facility] [address] [place], [address] Lymphocytes/100 WBC (Bld) 40.8 % Normal 19-41 [facility] Comment on above: Order Comment: RESUL T(S) PREVIOUSLY REPORTED ON MANUAL REQUISITION DURING DOWNTIME. Performed By: #### L 500.2500, L501.4020, L100.0100 #### [facility] [address] [place], [address] MCH (RBC) [Entitic mass] 31.7 pg Normal 27.0-32.0 [facility] Comment on above: Order Comment: RESUL T(S) PREVIOUSLY REPORTED ON MANUAL REQUISITION DURING DOWNTIME. Performed By: #### L 500.2500, L501.4020, L100.0100 #### [facility] [address] [place], [address] MCHC (RBC) [Mass/Vol] 34.0 g/dL Normal 32-36 [facility] Comment on above: Order Comment: RESUL T(S) PREVIOUSLY REPORTED ON MANUAL REQUISITION DURING DOWNTIME. Performed By: #### L 500.2500, L501.4020, L100.0100 #### [facility] [address] [place], [address] MCV (RBC) [Entitic vol] 93.0 fL Normal 81-99 [facility] Comment on above: Order Comment: RESUL T(S) PREVIOUSLY REPORTED ON MANUAL REQUISITION DURING DOWNTIME. Performed By: #### L 500.2500, L501.4020, L100.0100 #### [facility] [address] [place], [address] Monocytes/100 WBC (Bld) 6.9 % Normal 0-10 [facility] Comment on above: Order Comment: RESUL T(S) PREVIOUSLY REPORTED ON MANUAL REQUISITION DURING DOWNTIME. Performed By: #### L 500.2500, L501.4020, L100.0100 #### [facility] [address] [place], [address] Neutrophils/100 WBC (Bld) 49.2 % Normal 47-70 [facility] Comment on above: Order Comment: RESUL T(S) PREVIOUSLY REPORTED ON MANUAL REQUISITION DURING DOWNTIME. Performed By: #### L 500.2500, L501.4020, L100.0100 #### [facility] [address] [place], [address] Platelet mean volume (Bld) [Entitic vol] 8.4 fL Normal 6.2-12.0 [facility] Comment on above: Order Comment: RESUL T(S) PREVIOUSLY REPORTED ON MANUAL REQUISITION DURING DOWNTIME. Performed By: #### L 500.2500, L501.4020, L100.0100 #### [facility] [address] [place], [address] Platelets (Bld) [#/Vol] 277 10*3/uL Normal 150-450 [facility] Comment on above: Order Comment: RESUL T(S) PREVIOUSLY REPORTED ON MANUAL REQUISITION DURING DOWNTIME. Performed By: #### L 500.2500, L501.4020, L100.0100 #### [facility] [address] [place], [address] RDW SD 44.2 fl High 35.1-43.9 [facility] Comment on above: Order Comment: RESUL T(S) PREVIOUSLY REPORTED ON MANUAL REQUISITION DURING DOWNTIME. Performed By: #### L 500.2500, L501.4020, L100.0100 #### [facility] [address] [place], [address] Hematocrit (Bld) [Volume fraction] 38.8 % Normal 37-47 [facility] Comment on above: Order Comment: RESUL T(S) PREVIOUSLY REPORTED ON MANUAL REQUISITION DURING DOWNTIME. Performed By: #### L 500.2500, L501.4020, L100.0100 #### [facility] [address] [place], [address] Hemoglobin (Bld) [Mass/Vol] 13.2 g/dL Normal 12.0-15.0 [facility] Comment on above: Order Comment: RESUL T(S) PREVIOUSLY REPORTED ON MANUAL REQUISITION DURING DOWNTIME. Performed By: #### L 500.2500, L501.4020, L100.0100 #### [facility] [address] [facility] [place], [address] RBC (Bld) [#/Vol] 4.17 10*6/uL Low 4.2-5.4 [facility] Comment on above: Order Comment: RESUL T(S) PREVIOUSLY REPORTED ON MANUAL REQUISITION DURING DOWNTIME. Performed By: #### L 500.2500, L501.4020, L100.0100 #### [facility] [address] [place], [address] WBC (Bld) [#/Vol] 8.8 10*3/uL Normal 4.4-11.0 [facility] Comment on above: Order Comment: RESUL T(S) PREVIOUSLY REPORTED ON MANUAL REQUISITION DURING DOWNTIME. Performed By: #### L 500.2500, L501.4020, L100.0100 #### [facility] [address] [place], [address] Chest 1 View (Portable)on Chest 1 View (Portable) [facility] Imaging Services [address] [place] [address] Chest 1 View (Portable) MR#: [id number] Acct: [id number] Name: BROOKE NELSON Rep #: [id number] : 1975 F 47 From: Elder Phillips MD PCP: Dr. Duane Rowland MD Status: [facility] ER Study: Chest 1 View (Portable) Date of Exam: 07/17/22 Exam# [id number] Ordering Dr: Debora Tolentino MD INDICATION: PALPITATIONS EXAMINATION/TECHNIQUE : X-RAY - XR Chest 1 View COMPARISON: Chest radiograph 12/24/2015. Findings: Single frontal view of the chest. LUNG PARENCHYMA: No acute focal airspace disease or mass lesion. PLEURA: No pleural effusion. No pneumothorax. HEART/GREAT VESSELS: Cardiomediastinal silhouette is unremarkable. BONES: Osseous structures are unremarkable for age. RAD/Chest 1 View (Portable) IMPRESSION: Chest with no acute disease. Electronically Signed: Elder Phillips MD at 5:14 EDT , CC: Dr. Debora Tolentino MD; Dr. Duane Rowland MD Outside Operator: Signed Normal [facility] Emergency Department Summary on 07-17-2022 Emergency Department Summary [facility] Medical Records Department [address] [place] [id number] Emergency Department Summary 07/17/22 MR#: [id number] Acct: [id number] Name: BROOKE NELSON Rep #: [id number] : 1975 47 From: Debora Tolentino MD PCP: Dr. Duane Rowland MD Status:REG ER Location: ED HPI History of Present Illness Chief Complaint: Hypertension Informant: patient Narrative Narrative: Patient presents secondary to elevated blood pressure. She is a history of hypertension but has been off of her blood pressure medication for a little over a year. She states last evening and then waking in the middle the night tonight she felt a pulsating sensation in her ears. She checked her blood pressure at home and systolic pressure was in the 160s. Her heart rate was in the 80s. She denies chest pain. [facility] Medical History Hypertension Obstructive sleep apnea Home Medications l.norgest-eth.estradi ol triphasic 50-30 (6)/75-40(5)/125-30(1 0) tablet (Myzilra) 1 ea PO DAILY 12/24/15 [History Last Taken 12/23/15] hydrocodone-acetamino phen 5-325mg 5mg-325mg ([place]) 1 - 2 ea PO Q4H PRN PRN Pain #20 tabs 03/28/16 [Rx Last Taken Unknown] Allergy/AdvReac Type Severity Reaction Status Date / Time Penicillins [PCN] Allergy Rash Verified 03/28/16 11:15 Social History Smoking Status: Never smoker ROS ROS ED Constitutional Constitutional ED: Denies chills or fever(s) Eyes Eyes: Denies change in vision or discharge from eye(s) ENT ENT ED: Denies discharge from eye(s), rhinorrhea or sore throat Cardiovascular Cardiovascular: Denies chest pain or palpitations Respiratory/Chest Respiratory/Chest: Denies cough or dyspnea Gastrointestinal Gastrointestinal: Denies abdominal pain, diarrhea, nausea or vomiting Genitourinary Genitourinary ED: Denies dysuria Musculoskeletal Musculoskeletal: Denies back pain or extremity pain Integumentary Denies Abrasions or rash Neurologic Neurologic: Denies headache(s) or weakness Allergic/Immunologic Allergic/Immunologic ED: Denies lip swelling or urticaria EXAM Physical Exam Const Positive well nourished and well developed General Appearance ED: well developed HEENT Reports normocephalic and head/scalp atraumatic Eyes PERRL and EOMs intact bilaterally Neck supple Chest Wall inspection of chest normal and palpation of chest normal Resp normal respiratory effort and clear to auscultation bilaterally Cardio regular rate and regular rhythm GI normal to inspection, nondistended, normoactive bowel sounds Palpation: soft Extremity normal to inspection Neuro oriented x3 and no sensory deficits noted Sensorium / Orientation: alert Motor Exam: strength 5/5 throughout Psych mental status grossly normal Skin no rashes or lesions noted MDM MDM MDM Narrative Medical decision making narrative: 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 EKG obtained to evaluate for cardiac arrhythmia/ischemia. Chest x-ray obtained to evaluate for acute lung pathology, cardiac size, or mediastinal abnormality. Labwork obtained to evaluate for leukocytosis, anemia, and electrolyte derangement. Lab Data Attestation: I reviewed the patient's lab results. Lab results narrative: CBC and chemistry studies unremarkable. Troponin is normal at 5. Radiography Chest X-Ray - ED: 1 View, Read by ED Physician, Normal, Heart, Lungs and Mediastinum EKG Initial EKG: Attestation: I personally reviewed and interpreted this EKG as follows: Interpretation: Sinus Rhythm (Sinus at 81 bpm with no acute ischemia.) Differential Diagnosis Chest pain/SOB: ACS ACS: Positive for no evidence of ACS based on cardiac biomarkers and EKG without ischemia and aortic dissection Reason(s) Aortic dissection less likely:: Positive for normal vascular exam, normal neurological exam and no widened mediastinum on CXR Treatment and Re-Evaluation :: On repeat evaluation patient's resting comfortably. Her systolic blood pressure has been in the 130s and 140s after her initial blood pressure was elevated at 179/98. Heart rate has been normal. Work-up at this time reveals no evidence of any organ damage from hypertension. I did recommend she keep a journal of her blood pressures over the next week or 2 and follow-up with her primary care physician. This will help them determine if she needs to be restarted on her blood pressure medication. Return instructions have been provided. Discharge Plan Triage Chief Complaint: Hypertension ED Provider: Debora Tolentino Dx/Rx/DC Orders Clinical Impression: Hypertension Instructions: ED Hypertension, To Be Confirmed Prescriptions: No Action levonorg-eth estrad triphasic [Myzilra] 1 EACH tablet 1 ea PO DAILY (more content not included)... Normal [facility] L501.4020on 07-17-2022 TROPONIN-I HS 5 pg/mL Normal 3.0-54.0 [facility] Comment on above: Order Comment: RESUL T(S) PREVIOUSLY REPORTED ON MANUAL REQUISITION DURING DOWNTIME. 1 Result Comment: Plea se Note: New Test Units and Gender Specific Reference Ranges. For more information see Policy Stat Procedure [place] High Sensitivity Troponin (TNIH) and attachments. Performed By: #### L 500.2500, L501.4020, L100.0100 #### [facility] [address] [place], [address] Laboratory - Chemistry and C hemistry - challengeOrdered By: Dr. Tolentino on 07-17-2022 CO2 [Moles/Vol] 25.0 mmol/L 21.0-32.0 [facility] Urea nitrogen/Creatinine [Mass ratio] 13.2 mg/mg 10-20 [facility] No Panel InformationOrdered By: Dr. Tolentino on 04-06-2023 Estimated GFR (MDRD) Amer 104 mL/min >60 [facility] Estimated GFR (MDRD) Non-Af Amer 86 mL/min >60 [facility] Troponin I High Sensitivity 5 pg/mL 3.0-54.0 [facility] Comment on above: Please Note: New Tia t Units and Gender Specific Reference Ranges. For more information see Policy Stat Procedure [place] High Sensitivity Troponin (TNIH) and attachments. Serum or plasma calcium alton urement (mass/volume)Ordered By: Dr. Tolentino on 07-17-2022 Calcium [Mass/Vol] 8.3 mg/dL 8.5-10.1 [facility] Serum or plasma creatinine m easurement (mass/volume)Ordered By: Dr. Tolentino on 07-17-2022 Creatinine [Mass/Vol] 0.76 mg/dL 0.55-1.02 [facility] Comment on above: The validity of the calculated GFR & GFRAA in patients over 70 years has not been determined. Clinical correlation is essential. Serum or plasma urea nitroge n measurement (mass/volume)Ordered By: Dr. Tolentino on 07-17-2022 Urea nitrogen [Mass/Vol] 10 mg/dL 718 [facility] Thin prep Papanicolaou smear with manual screeningOrdered By: Dr. Tolentino on 07-17-2022 Thin prep Papanicolaou smear with manual screening 7 5-15 [facility] STREP A MOLECULAR (POC)on Procedural Control Valid [facility] Strep A (POCT) Positive Abnormal Negative [facility] THELMA DIAG W MARCO ANTONIO BILATon 08-0 [facility] THELMA SCREENINGon 10-16-2021 [facility] Vital Signs Date Time Vital Sign Value Performing Clinician Nima morris 11-04-2024 07:16-0400 Body height 162.6 cm Maximiliano Marroquin APRN.CNP Work Phone: [facility] 11-04-2024 07:16-0400 Body mass index (BMI) [Ratio] 40.85 kg/m2 Maximiliano Marroquin APRN.CNP Work Phone: [facility] 11-04-2024 07:16-0400 Body weight 107.96 kg Maximiliano Marroquin APRN.CNP Work Phone: [facility] 11-04-2024 07:16-0400 Diastolic blood pressure 66 mm[Hg] Maximiliano Haury MEDIA CLERK.CLOTH CUTTER Work Phone: [facility] 11-04-2024 07:16-0400 Systolic blood pressure 120 mm[Hg] Maximiliano Haury MEDIA CLERK.CLOTH CUTTER Work Phone: [facility] 11-02-2023 13:53-0400 Body height 163.6 cm Maximiliano Haury MEDIA CLERK.CLOTH CUTTER Work Phone: [facility] 11-02-2023 13:53-0400 Body mass index (BMI) [Ratio] 40.34 kg/m2 Maximiliano Haury MEDIA CLERK.CLOTH CUTTER Work Phone: [facility] 11-02-2023 13:53-0400 Body weight 107.96 kg Maximiliano Haury MEDIA CLERK.CLOTH CUTTER Work Phone: [facility] 11-02-2023 13:53-0400 Diastolic blood pressure 90 mm[Hg] Maximiliano Haury MEDIA CLERK.CLOTH CUTTER Work Phone: [facility] 11-02-2023 13:53-0400 Systolic blood pressure 132 mm[Hg] Maximiliano Haury MEDIA CLERK.CLOTH CUTTER Work Phone: [facility] 10-09-2023 12:36-0400 Diastolic blood pressure 73 mm[Hg] Jeaneth Caputo MD Work Phone: [facility] 10-09-2023 12:36-0400 Heart rate 83 /min Jeaneth Caputo MD Work Phone: [facility] 10-09-2023 12:36-0400 Respiratory rate 16 /min Jeaneth Caputo MD Work Phone: [facility] 10-09-2023 12:36-0400 SaO2% (BldA) [Mass fraction] 97 % Jeaneth Caputo MD Work Phone: [facility] 10-09-2023 12:36-0400 Systolic blood pressure 121 mm[Hg] Jeaneth Caputo MD Work Phone: [facility] 10-09-2023 10:50-0400 Body temperature 97.9 [degF] Jeaneth Caputo MD Work Phone: [facility] 09-21-2023 18:20-0400 Body mass index (BMI) [Ratio] 41.16 kg/m2 Duane Rowland MD Work Phone: [facility] 09-21-2023 18:20-0400 Body weight 108.77 kg uDane Rowland MD Work Phone: [facility] 09-21-2023 18:20-0400 Diastolic blood pressure 78 mm[Hg] Duane Rowland MD Work Phone: [facility] 09-21-2023 18:20-0400 Heart rate 78 /min Duane Rowland MD Work Phone: [facility] 09-21-2023 18:20-0400 Respiratory rate 16 /min Duane Rowland MD Work Phone: [facility] 09-21-2023 18:20-0400 Systolic blood pressure 124 mm[Hg] Duane Rowland MD Work Phone: [facility] 09-21-2023 09:04-0400 Body height 162.6 cm Jeaneth Caputo MD Work Phone: [facility] 09-21-2023 09:04-0400 Body mass index (BMI) [Ratio] 41.16 kg/m2 Jeaneth Caputo MD Work Phone: [facility] 09-21-2023 09:04-0400 Body temperature 98.01 [degF] Jeaneth Caputo MD Work Phone: [facility] 09-21-2023 09:04-0400 Body weight 108.77 kg Jeaneth Caputo MD Work Phone: [facility] 09-21-2023 09:04-0400 Diastolic blood pressure 98 mm[Hg] Jeaneth Caputo MD Work Phone: [facility] 09-21-2023 09:04-0400 Heart rate 94 /min Jeaneth Caputo MD Work Phone: [facility] 09-21-2023 09:04-0400 SaO2% (BldA) [Mass fraction] 97 % Jeaneth Caputo MD Work Phone: [facility] 09-21-2023 09:04-0400 Systolic blood pressure 140 mm[Hg] Jeaneth Caputo MD Work Phone: [facility] 09-16-2023 09:15-0400 Body mass index (BMI) [Ratio] 38.84 kg/m2 Kristie Podlogar MEDIA CLERK.CLOTH CUTTER Work Phone: [facility] 09-16-2023 09:15-0400 Body weight 107.68 kg Kristie Podlogar MEDIA CLERK.CLOTH CUTTER Work Phone: [facility] 09-16-2023 09:15-0400 Diastolic blood pressure 76 mm[Hg] Kristie Podlogar MEDIA CLERK.CLOTH CUTTER Work Phone: [facility] 09-16-2023 09:15-0400 Heart rate 93 /min Kristie Podlogar MEDIA CLERK.CLOTH CUTTER Work Phone: [facility] 09-16-2023 09:15-0400 Respiratory rate 16 /min Kristie Podlogar MEDIA CLERK.CLOTH CUTTER Work Phone: [facility] 09-16-2023 09:15-0400 SaO2% (BldA) [Mass fraction] 95 % Kristie Podlogar MEDIA CLERK.CLOTH CUTTER Work Phone: [facility] 09-16-2023 09:15-0400 Systolic blood pressure 132 mm[Hg] Kristie Podlogar MEDIA CLERK.CLOTH CUTTER Work Phone: [facility] 08-07-2023 13:25-0400 Body mass index (BMI) [Ratio] 38.81 kg/m2 Marilee Sanon MEDIA CLERK.CLOTH CUTTER Work Phone: [facility] 08-07-2023 13:25-0400 Body weight 107.59 kg Marilee Sanon MEDIA CLERK.CLOTH CUTTER Work Phone: [facility] 08-07-2023 13:25-0400 Diastolic blood pressure 92 mm[Hg] Marilee Tejadahoankit MEDIA CLERK.CLOTH CUTTER Work Phone: [facility] 08-07-2023 13:25-0400 Heart rate 92 /min Marilee Tejadahof MEDIA CLERK.CLOTH CUTTER Work Phone: [facility] 08-07-2023 13:25-0400 Respiratory rate 16 /min Marilee Tejadahoankit MEDIA CLERK.CLOTH CUTTER Work Phone: [facility] 08-07-2023 13:25-0400 SaO2% (BldA) [Mass fraction] 95 % Marilee Tejadahoankit MEDIA CLERK.CLOTH CUTTER Work Phone: [facility] 08-07-2023 13:25-0400 Systolic blood pressure 158 mm[Hg] Marilee Tejadahoankit MEDIA CLERK.CLOTH CUTTER Work Phone: [facility] 04-02-2023 07:59-0500 Body temperature 97.59 [degF] Buffy Athy PA-C Work Phone: [facility] 04-02-2023 07:59-0500 Body weight 107.59 kg Buffy Athy PA-C Work Phone: [facility] 04-02-2023 07:59-0500 Diastolic blood pressure 90 mm[Hg] Buffy Athy PA-C Work Phone: [facility] 04-02-2023 07:59-0500 Heart rate 95 /min Buffy Athy PA-C Work Phone: [facility] 04-02-2023 07:59-0500 Respiratory rate 21 /min Buffy Athy PA-C Work Phone: [facility] 04-02-2023 07:59-0500 SaO2% (BldA) [Mass fraction] 97 % Buffy Athy PA-C Work Phone: [facility] 04-02-2023 07:59-0500 Systolic blood pressure 148 mm[Hg] Buffy Athy PA-C Work Phone: [facility] 08-25-2022 19:44-0400 Body temperature 98.29 [degF] Abdi Petersen MEDIA CLERK.CLOTH CUTTER Work Phone: [facility] 08-25-2022 19:44-0400 Body weight 105.69 [facility].CLOTH CUTTER Work Phone: [facility] 08-25-2022 19:44-0400 Diastolic blood pressure 94 mm[Hg] [facility] MED[facility].CLOTH CUTTER Work Phone: [facility] 08-25-2022 19:44-0400 Heart rate 96 /min [facility] MEDIA CLERK.CLOTH CUTTER Work Phone: [facility] 08-25-2022 19:44-0400 Respiratory rate 16 /min [facility] MEDIA CLERK.CLOTH CUTTER Work Phone: [facility] 08-25-2022 19:44-0400 SaO2% (BldA) [Mass fraction] 97 % [facility] MEDIA CLERK.CLOTH CUTTER Work Phone: [facility] 08-25-2022 19:44-0400 Systolic blood pressure 152 mm[Hg] [facility] MEDIA CLERK.CLOTH CUTTER Work Phone: [facility] 08-25-2022 07:26-0400 Body temperature 98.1 [degF] Kristie Podlogar MEDIA CLERK.CLOTH CUTTER Work Phone: [facility] 08-25-2022 07:26-0400 Body weight 105.33 kg Krsitie Podlogar MEDIA CLERK.CLOTH CUTTER Work Phone: [facility] 08-25-2022 07:26-0400 Diastolic blood pressure 84 mm[Hg] Kristie Podlogar MEDIA CLERK.CLOTH CUTTER Work Phone: [facility] 08-25-2022 07:26-0400 Heart rate 81 /min Kristie Podlogar MEDIA CLERK.CLOTH CUTTER Work Phone: [facility] 08-25-2022 07:26-0400 Respiratory rate 18 /min Kristie Podlogar MEDIA CLERK.CLOTH CUTTER Work Phone: [facility] 08-25-2022 07:26-0400 SaO2% (BldA) [Mass fraction] 97 % Kristie Podlogar MEDIA CLERK.CLOTH CUTTER Work Phone: [facility] 08-25-2022 07:26-0400 Systolic blood pressure 140 mm[Hg] Kristie Podlogar MEDIA CLERK.CLOTH CUTTER Work Phone: [facility] 07-17-2022 15:35-0400 Diastolic blood pressure 102 mm[Hg] Duane Rowland MD Work Phone: [facility] 07-17-2022 15:35-0400 Systolic blood pressure 160 mm[Hg] Duane Rowland MD Work Phone: [facility] 07-17-2022 15:32-0400 Body weight 105.6 kg Duane Rowland MD Work Phone: [facility] 07-17-2022 15:32-0400 Heart rate 72 /min Duane Rowland MD Work Phone: [facility] 07-17-2022 15:32-0400 Respiratory rate 16 /min Duane Rowland MD Work Phone: [facility] 05-18-2022 13:28-0500 Body temperature 98.29 [degF] Albertina Deleon MEDIA CLERK.CLOTH CUTTER Work Phone: [facility] 05-18-2022 13:28-0500 Body weight 106.23 kg Albertina Deleon MEDIA CLERK.CLOTH CUTTER Work Phone: [facility] 05-18-2022 13:28-0500 Diastolic blood pressure 90 mm[Hg] Albertina Deleon MEDIA CLERK.CLOTH CUTTER Work Phone: [facility] 05-18-2022 13:28-0500 Heart rate 101 /min Albertina Deleon MEDIA CLERK.CLOTH CUTTER Work Phone: [facility] 05-18-2022 13:28-0500 Respiratory rate 18 /min Albertina Deleon MEDIA CLERK.CLOTH CUTTER Work Phone: [facility] 05-18-2022 13:28-0500 SaO2% (BldA) [Mass fraction] 97 % Albertina Deleon MEDIA CLERK.CLOTH CUTTER Work Phone: [facility] 05-18-2022 13:28-0500 Systolic blood pressure 148 mm[Hg] Albertina Deleon APRN.CLOTH CUTTER Work Phone: [facility] Encounters Encounter Date Encounter Type Care Provider Facility Start: 11-18-2024 End: 11-18-2024 Patient encounter procedure [facility] Start: 11-18-2024 End: 11-18-2024 ambulatory 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 Work Phone: OB/Gynecology Start: 11-04-2024 End: 11-04-2024 Patient encounter procedure Maximiliano Marroquin APRN.CLOTH CUTTER Work Phone: OB/Gynecology Comment on above: Encounter for gyneco logical examination (general) (routine) without abnormal findings (Primary Dx); Encounter for screening mammogram for breast cancer; Abnormal uterine bleeding Start: 11-04-2024 End: 11-04-2024 Patient encounter status Maximiliano Marroquin APRN.CLOTH CUTTER Work Phone: [facility] Start: 11-04-2024 End: 11-04-2024 ambulatory MAXIMILIANO MARROQUIN Facility:[facility] Start: 11-04-2024 Encounter for gynecological examination (general) (routine) without abnormal findings MAXIMILIANO MARROQUIN [facility] Start: 10-05-2024 ambulatory MAXIMILIANO MARROQUIN Facility:[facility] Start: 10-05-2024 End: 10-05-2024 Subsequent hospital visit by physician Screen Mammo [facility] Comment on above: Encounter for screen ing mammogram for breast cancer [Z12.31] Start: 05-28-2024 End: 05-30-2024 Refill Alfredo Burleson APRN.CLOTH CUTTER Work Phone: [facility] Comment on above: Refill Request Start: 12-04-2023 End: 12-07-2023 Refill Marilee Sanon APRN.CLOTH CUTTER Work Phone: [facility] Comment on above: Refill Request Start: 11-02-2023 End: 11-02-2023 Patient encounter procedure Maximiliano Haury MEDIA CLERK.CLOTH CUTTER Work Phone: OB/Gynecology Comment on above: Encounter for gyneco logical examination (general) (routine) without abnormal findings (Primary Dx); Screening for cervical cancer; Encounter for screening for human papillomavirus (HPV); Encounter for screening mammogram for breast cancer; Dense breast tissue Start: 11-02-2023 End: 11-02-2023 Patient encounter status Maximiliano Marroquin NATALYA.CLOTH CUTTER Work Phone: [facility] Start: 10-09-2023 End: 10-09-2023 Subsequent hospital visit by physician Jeaneth Caputo MD Work Phone: Ambulatory Surgery Comment on above: Screening for colon cancer [Z12.11] Start: 10-06-2023 Documentation procedure Mammog orly Coordinator [facility] Department Start: 10-06-2023 Letter encounter Mammography Coordinator [facility] Department Start: 10-05-2023 End: 10-05-2023 Subsequent hospital visit by physician Screen Mammo [facility] Comment on above: Encounter for screen ing mammogram for breast cancer [Z12.31] Start: 09-21-2023 End: 09-21-2023 Patient encounter procedure Duane Rowland MD Work Phone: [facility] Comment on above: Poison tiffanie (Primary Dx) Screening for colon cancer; BMI 40.0-44.9, adult (HCC) Start: 09-19-2023 ambulatory Tawnya mejia MD Work Phone: [facility] Comment on above: Encounter for medica l assessment (Primary Dx) Mouth/Lip Problem Start: 09-19-2023 Patient encounter status Madi Guevara MD Work Phone: [facility] Work Phone: Start: 09-19-2023 Telemedicine consult ation with patient Tawnya Guevara MD Work Phone: [facility] Start: 09-16-2023 End: 09-16-2023 Patient encounter procedure Kristie Joshua APRN.CLOTH CUTTER Work Phone: [facility] Comment on above: Allergic contact dae matitis due to plants, except food (Primary Dx) Start: 09-14-2023 ambulatory Duane ly MD Work Phone: [facility] Comment on above: Poison Tiffanie Start: 08-12-2023 Telephone encounter Marilee burns MEDIA CLERK.CLOTH CUTTER Work Phone: [facility] Comment on above: Patient Update Start: 08-07-2023 End: 08-07-2023 Patient encounter procedure Marilee Sanon MEDIA CLERK.CLOTH CUTTER Work Phone: [facility] Comment on above: Wellness examination (Primary Dx); Hypertension, unspecified type; Post-cholecystectomy syndrome; Chronic constipation; CAROLINE (obstructive sleep apnea); Situational stress; Hyperlipidemia, mixed; Women's annual routine gynecological examination; Screening for colon cancer; Screening for diabetes mellitus Start: 08-07-2023 End: 08-07-2023 Patient encounter status Marilee Sanon MEDIA CLERK.CLOTH CUTTER Work Phone: [facility] Work Phone: Start: 07-15-2023 ambulatory Duane ly MD Work Phone: Ambulatory Surgery Comment on above: colorectal cancer sc reening Start: 04-02-2023 End: 04-02-2023 Patient encounter procedure Buffy Walker PA-C Work Phone: [facility] Comment on above: Viral URI with cough (Primary Dx) Start: 01-07-2023 ambulatory Duane ly MD Work Phone: [facility] Start: 08-25-2022 End: 08-25-2022 Office outpatient visit 15 minutes Abdi Petersen MEDIA CLERK.CLOTH CUTTER Work Phone: [facility] Comment on above: Bacterial conjunctiv itis (Primary Dx) Start: 08-25-2022 End: 08-25-2022 Patient encounter procedure Kristie Joshua MEDIA CLERK.CLOTH CUTTER Work Phone: [facility] Comment on above: Sore throat (Primary Dx) Start: 07-17-2022 End: 07-17-2022 Patient encounter procedure Duane Rowland MD Work Phone: [facility] Comment on above: Hypertension, unspec ified type (Primary Dx) Start: 07-17-2022 End: 07-17-2022 Emergency department patient visit Debora Tolentino Facility:[facility] Start: 07-17-2022 End: 07-17-2022 Emergency department patient visit [facility] Start: 05-18-2022 End: 05-18-2022 Patient encounter procedure Albertina Deleon MEDIA CLERK.CLOTH CUTTER Work Phone: [facility] Comment on above: Strep pharyngitis (P rimary Dx) Start: 01-04-2022 Refill Duane ly MD Work Phone: [facility] Comment on above: Refill Request Start: 11-20-2021 Telephone encounter Marilee burns APRN.CLOTH CUTTER Work Phone: [facility] Comment on above: Results (Mammogram ) Start: 11-19-2021 End: 11-19-2021 Subsequent hospital visit by physician Diagnostic Mammo [facility] Start: 10-18-2021 Telephone encounter Marilee burns APRN.CLOTH CUTTER Work Phone: [facility] Comment on above: Results (Labs ) Start: 10-16-2021 Documentation procedure Mammog orly Coordinator [facility] Start: 10-16-2021 Letter encounter Mammography Coordinator [facility] Department Start: 10-16-2021 End: 10-16-2021 Subsequent hospital visit by physician Screen Mammo [facility] Comment on above: Encounter for screen ing mammogram for malignant neoplasm of breast [Z12.31] Start: 11-09-2020 Telephone encounter Duane pedersen MD Work Phone: [facility] [place] Comment on above: UACNS results Start: 01-15-2018 End: 02-03-2018 Patient encounter [facility] Procedures Date Procedure Procedure Detail Performing Clinician Start: 11-18-2024 Us pelvic nonobstetr ic real-time image complete Maximiliano Marroquin APRN.CLOTH CUTTER Work Phone: Start: 10-09-2023 Colonoscopy flx dx w /collj spec when pfrmd Jeaneth Caputo MD Work Phone: Start: 10-09-2023 Colonoscopy Jeaneth Caputo MD Work Phone: Start: 08-07-2023 Adult depression scr eening assessment Marileenivia Sanon MEDIA CLERK.CLOTH CUTTER Work Phone: Start: 04-02-2023 COVID & INFLUENZA A/ B & RSV NAAT, ROUTINE Buffy ROSAS-C Work Phone: Start: 08-25-2022 STREP A MOLECULAR (POC) Kristie Podlogar MEDIA CLERK.CLOTH CUTTER Work Phone: Start: 07-17-2022 Plain chest X-ray Start: 05-18-2022 STREP A MOLECULAR (POC) Buffy Walker PA-C Work Phone: Start: 11-19-2021 End: 11-19-2021 Digital breast tomosynthesis bilateral Marilee Sanon MEDIA CLERK.CLOTH CUTTER Work Phone: Start: 10-17-2021 Lipid 1996 panel - S alan or Plasma Duane Rowland MD Work Phone: Start: 10-16-2021 End: 10-16-2021 Screening mammography bi 2-view breast inc cad Marilee Sanon MEDIA CLERK.CLOTH CUTTER Work Phone: Start: 11-22-2020 Adult depression scr eening assessment Duane Rowland MD Work Phone: Start: 01-11-2019 Mammography Duane miguel MD Work Phone: Plan of Treatment Date Care Activity Detail Author Start: 11-01-2028 Screening for malign ant neoplasm of cervix Cervical Cancer Screening [facility] Start: 11-05-2027 Diabetes Screening Diabetes Screenin g [facility] Start: 10-17-2026 Lipid 1996 panel - Serum or Plasma Lipid Screening [facility] Start: 10-17-2026 Lipid panel Lipid Screening [facility] Start: 10-17-2026 LIPID SCREEN LIPID SCREEN [facility] Start: 12-26-2025 Urine microalbumin profile [facility] Start: 10-05-2025 Screening for malign ant neoplasm of breast Mammogram Screening [facility] Start: 12-12-2024 Influenza vaccination [facility] Start: 11-18-2024 End: 11-18-2024 ambulatory 11/18/2024 11:00 AM EDT Procedure OB/Gynecology [address] [place] [address] 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, 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[employer] [address] [place] [address] Abnormal uterine bleeding [N93.9] OB/Gynecology Comment on above: Abnormal uterine ble eding [N93.9] Start: 11-04-2024 End: 02-03-2025 Estradiol (E2) [Mass/volume] in Serum or Plasma [facility] Comment on above: Expected: 11/04/2024 , Expires: 02/03/2025 Start: 11-04-2024 End: 02-03-2025 Fasting glucose [Mass/volume] in Serum or Plasma [facility] Comment on above: Expected: 11/04/2024 , Expires: 02/03/2025 Start: 11-04-2024 End: 02-03-2025 Follitropin [Units/volume] in Serum or Plasma [facility] Comment on above: Expected: 11/04/2024 , Expires: 02/03/2025 Start: 11-04-2024 End: 02-03-2025 Hemoglobin A1c in Blood [facility] Comment on above: Expected: 11/04/2024 , Expires: 02/03/2025 Start: 11-04-2024 End: 02-03-2025 Thyrotropin [Units/volume] in Serum or Plasma [facility] Comment on above: Expected: 11/04/2024 , Expires: 02/03/2025 Start: 11-04-2024 End: 02-03-2025 Thyroxine (T4) free [Mass/volume] in Serum or Plasma [facility] Comment on above: Expected: 11/04/2024 , Expires: 02/03/2025 Start: 11-04-2024 End: 11-04-2025 US Pelvis PELVIC US [facility] Anc Imaging Routine Abnormal uterine bleeding Expected: 11/04/2024, Expires: 11/04/2025 [facility] Comment on above: Expected: 11/04/2024 , Expires: 11/04/2025 Start: 11-02-2024 End: 11-02-2024 Patient encounter procedure 11/02/2024 2:45 PM EDT Office Visit OB/Gynecology [address] [place] [address] Maximiliano Marroquin APRN.CLOTH CUTTER [address] [place] [address] Annual OB/Gynecology Comment on above: Annual Start: 10-17-2024 DIABETES SCREEN DIABETES SCREEN [facility] Start: 10-17-2024 Diabetes Screening Diabetes Screenin g [facility] Start: 10-08-2024 Screening for malign ant neoplasm of colon [facility] Start: 10-05-2024 End: 10-05-2024 Patient encounter procedure 10/05/2024 12:50 PM EDT Appointment Mammogram [address] [place] [address] Encounter for screening mammogram for breast cancer [Z12.31]; Dense breast tissue [R92.30] Mammogram Comment on above: Encounter for screen ing mammogram for breast cancer [Z12.31]; Dense breast tissue [R92.30] Start: 10-04-2024 Screening for malign ant neoplasm of breast Mammogram Screening [facility] Start: 09-20-2024 Annual PCP Team Pullboat Engineer tyree Disease Visit Annual PCP Team Chronic Disease Visit [facility] Start: 09-20-2024 BP Controlled (<130/80) BP Controlle d (<130/80) [facility] Start: 09-15-2024 Annual PCP Team Pullboat Engineer tyree Disease Visit Annual PCP Team Chronic Disease Visit [facility] Start: 08-06-2024 Annual PCP Team Pullboat Engineer tyree Disease Visit Annual PCP Team Chronic Disease Visit [facility] Start: 08-06-2024 Anxiety Screening Anxiety Screening [facility] Start: 08-06-2024 Covid-19 Vaccine () Covid-19 Vaccine () [facility] Comment on above: Postponed from 12/12 (Declined at this time) Start: 08-06-2024 Depression Screening Depression Scre ening [facility] Start: 08-06-2024 Shingrix Vaccine (1 of 2) Shingrix Vaccine (1 of 2) [facility] Comment on above: Postponed from 07/07 (Declined at this time) Start: 01-08-2024 LIPID SCREEN LIPID SCREEN [facility] Start: 12-13-2023 Covid-19 Vaccine () Covid-19 Vaccine () [facility] Start: 12-13-2023 Influenza vaccination [facility] Start: 11-02-2023 End: 11-02-2023 Patient encounter procedure 11/02/2023 2:00 PM EDT Office Visit OB/Gynecology [address] [place] [id number] Maximiliano Marroquin APRN.CLOTH CUTTER [address] [place] [address] Women's annual routine gynecological examination [Z01.419] OB/Gynecology Comment on above: Women's annual routi ne gynecological examination [Z01.419] Start: 10-09-2023 End: 10-09-2023 Patient encounter procedure Ambulatory Surgery Start: 10-05-2023 End: 10-05-2023 Patient encounter procedure 10/05/2023 12:50 PM EDT Appointment Mammogram [address] [place] [address] Encounter for screening mammogram for breast cancer [Z12.31]THELMA SCREENING [facility] Mammogram Comment on above: Encounter for screen ing mammogram for breast cancer [Z12.31]THELMA SCREENING [facility] Start: 09-23-2023 End: 09-23-2023 Patient encounter procedure Mammogram Comment on above: Encounter for screen ing mammogram for breast cancer [Z12.31] annual exam Start: 09-21-2023 End: 09-21-2023 Patient encounter procedure General Surgery Comment on above: colonscopy consult colonscopy consult- stb poison tiffanie Start: 08-26-2023 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 TYREE DISEASE VISIT ANNUAL PCP TEAM CHRONIC DISEASE VISIT [facility] Start: 08-07-2023 End: 11-06-2023 Comprehensive metabolic 2000 panel - Serum or Plasma COMPREHENSIVE METABOLIC PANEL Lab Routine Wellness examination Expected: 08/07/2023, Expires: 11/06/2023 [facility] Work Phone: Comment on above: Expected: 08/07/2023 , Expires: 11/06/2023 Start: 08-07-2023 End: 11-06-2023 Cortisol [Mass/volume] in Serum or Plasma CORTISOL, SERUM Lab Routine Situational stress Expected: 08/07/2023, Expires: 11/06/2023 [facility] Comment on above: Expected: 08/07/2023 , Expires: 11/06/2023 Start: 08-07-2023 End: 11-06-2023 Hemoglobin A1c in Blood HEMOGLOBIN A1C Lab Routine Screening for diabetes mellitus Expected: 08/07/2023, Expires: 11/06/2023 [facility] Comment on above: Expected: 08/07/2023 , Expires: 11/06/2023 Start: 08-07-2023 End: 11-06-2023 Lipid 1996 panel - Serum or Plasma LIPID PANEL BASIC Lab Routine Hyperlipidemia, mixed Expected: 08/07/2023, Expires: 11/06/2023 [facility] Comment on above: Expected: 08/07/2023 , Expires: 11/06/2023 Start: 07-18-2023 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 TYREE DISEASE VISIT ANNUAL PCP TEAM CHRONIC DISEASE VISIT [facility] Start: 07-08-2023 Pneumococcal Vaccine : 50+ (1 of 1 - PCV) Pneumococcal Vaccine: 50+ (1 of 1 - PCV) [facility] Start: 07-08-2023 Shingrix Vaccine (1 of 2) Shingrix Vaccine (1 of 2) [facility] Start: 04-13-2023 Behavioral Health Screening Behavioral Health Screening [facility] Start: 12-12-2022 Covid-19 Vaccine () Covid-19 Vaccine () [facility] Start: 12-12-2022 Influenza vaccination [facility] Start: 11-19-2022 Mammography [facility] Start: 11-19-2022 Screening for malign ant neoplasm of breast Mammogram Screening [facility] Start: 10-16-2022 Mammography MAMMOGRAM [facility] Start: 05-09-2022 DIABETES SCREEN DIABETES SCREEN [facility] Start: 04-13-2022 DEPRESSION ASSESSMENT DEPRESSION ASS ESSMENT [facility] Start: 12-12-2021 Influenza vaccination [facility] Start: 11-30-2021 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 TYREE DISEASE VISIT ANNUAL PCP TEAM CHRONIC DISEASE VISIT [facility] Start: 11-22-2021 Adult depression screening assessment DEPRESSION SCREENING [facility] Start: 08-21-2021 HPV TESTING HPV TESTING [facility] Start: 08-21-2021 PAP TESTING PAP TESTING [facility] Start: 08-21-2021 Screening for malign ant neoplasm of cervix [facility] Start: 05-23-2021 COVID-19 VACCINE (3 - Booster for Pfizer series) COVID-19 VACCINE (3 - Booster for Pfizer series) [facility] Start: 02-15-2021 COVID-19 VACCINE (3 - Booster for Pfizer series) COVID-19 VACCINE (3 - Booster for Pfizer series) [facility] Start: 02-15-2021 Covid-19 Vaccine (3 - Pfizer series) Covid-19 Vaccine (3 - Pfizer series) [facility] Start: 05-09-2020 BP CONTROLLED (<130/80) BP CONTROLLE D (<130/80) [facility] Start: 01-12-2020 Mammography MAMMOGRAM [facility] Start: 2018 COLOGUARD (FIT-DNA) COLOGUARD (FIT-D NA) [facility] Start: 2018 Colonoscopy COLONOSCOPY [facility] Start: 2018 COLORECTAL CANCER SCREENING COLORECTAL CANCER SCREENING [facility] Start: [address] COLONOGRAPHY [facility] Start: 2018 FECAL OCCULT BLOOD FECAL OCCULT BLOO D [facility] Start: 2018 Screening for malign ant neoplasm of colon [facility] Start: 2018 [facility] Breast - bilater al screening THELMA SCREENING [facility] Radiology Routine Encounter for screening mammogram for breast cancer 10/05/2023 1:13 PM EDT [facility] Work Phone: End: 12-01-2024 DBT Breast - bilateral screening THELMA SCREENING [facility] Radiology Routine Encounter for screening mammogram for breast cancer Dense breast tissue 1 Occurrences starting 11/02/2023 until 12/01/2024 [facility] Work Phone: Comment on above: 1 Occurrences starti ng 11/02/2023 until 12/01/2024 DBT Breast - bilater al screening THELMA SCREENING [facility] Radiology Routine Encounter for screening mammogram for breast cancer Dense breast tissue 10/05/2024 1:31 PM EDT [facility] Work Phone: End: 12-04-2025 DBT Breast - bilateral screening THELMA SCREENING [facility] Radiology Routine Encounter for screening mammogram for breast cancer 1 Occurrences starting 11/04/2024 until 12/04/2025 [facility] Work Phone: Comment on above: 1 Occurrences starti ng 11/04/2024 until 12/04/2025 Hematocrit [Volume Fraction] of Blood [facility] Hemoglobin [Mass/volume] in Blood [facility] Leukocytes [#/volume ] in Blood [facility] End: 02-06-2024 THELMA SCREENING [facility] THELMA SCREENING [facility] Radiology Routine Encounter for screening mammogram for breast cancer 1 Occurrences starting 01/07/2023 until 02/06/2024 [facility] Work Phone: Comment on above: 1 Occurrences starti ng 01/07/2023 until 02/06/2024 Mean corpuscular hemoglobin concentration determination [facility] Mean corpuscular hemoglobin determination [facility] Neutrophil count [facility] Neutrophil percent differential count [facility] PAP TEST PAP TEST Lab Rou loco Encounter for gynecological examination (general) (routine) without abnormal findings Screening for cervical cancer Encounter for screening for human papillomavirus (HPV) 11/02/2023 2:23 PM EDT [facility] Patient Education ED Hypertensio n, To Be Confirmed [facility] Work Phone: Patient referral [facility] Work Phone: Platelets [#/volume] in Blood [facility] Red blood cell count [facility] Red cell distributio n width determination [facility] End: 09-20-2024 Screening colonoscopy COLONOSCOPY SCREENING Endoscopy Routine Screening for colon cancer 1 Occurrences starting 09/21/2023 until 09/20/2024 [facility] Work Phone: Comment on above: 1 Occurrences starti ng 09/21/2023 until 09/20/2024 [facility] Immunizations Immunization Date Immunization Notes Care Provider Kathie orellana 12-21-2020 COVID-19 vaccine, ag e 12+ yr (PFIZER-BIONTECH - PURPLE TOP) Screen [facility] Work Phone: 11-30-2020 COVID-19 vaccine, ag e 12+ yr (PFIZER-BIONTECH - PURPLE TOP) Screen [facility] 01-03-2019 influenza virus vaccine, unspecified formulation Duane Rowland MD Work Phone: [facility] 05-27-2017 hepatitis B vaccine, adult dosage Duane Rowland MD Work Phone: [facility] Work Phone: 12-25-2016 hepatitis B vaccine, adult dosage Duane Rowland MD Work Phone: [facility] Work Phone: 11-24-2016 hepatitis B vaccine, adult dosage Duane Rowland MD Work Phone: [facility] Work Phone: 11-24-2016 measles, mumps and rubella virus vaccine Duane Rowland MD Work Phone: [facility] Work Phone: 12-28-2015 measles, mumps and rubella virus vaccine Duane Rowland MD Work Phone: [facility] Work Phone: 12-27-2015 tetanus toxoid, reduced diphtheria toxoid, and acellular pertussis vaccine, adsorbed Duane Rowland MD Work Phone: [facility] 03-26-2012 influenza virus vaccine, unspecified formulation Duane Rowland MD Work Phone: [facility] 01-24-2011 influenza virus vaccine, unspecified formulation Duane Rowland MD Work Phone: [facility] Work Phone: 03-21-2010 influenza virus vaccine, unspecified formulation Duane Rowland MD Work Phone: [facility] 01-03-2009 influenza virus vaccine, unspecified formulation Duane Rowland MD Work Phone: [facility] Work Phone: 01-31-2008 influenza virus vaccine, unspecified formulation Duane Rowland MD Work Phone: [facility] Work Phone: 03-12-2007 influenza virus vaccine, unspecified formulation Duane Rowland MD Work Phone: [facility] Work Phone: 03-12-2006 influenza virus vaccine, unspecified formulation Duane Rowland MD Work Phone: [facility] 07-11-1974 measles, mumps and rubella virus vaccine Duane Rowland MD Work Phone: [facility] Work Phone: Payers Date Payer Category Payer [facility] PPO OOS [id number] 2024 Unknown [id number] 2022 Private Health Insurance [id number] 2022 Self-pay 2022 Private Health Insurance [id number] 2018 Unknown JAMEE DEL REAL PPO [id number] 2018-Present [phone] [address] [place] [address] PPO [id number] 2018 Unknown JAMEE MALDONADO SS PPO [id number] 2018-Present [phone] [address] [place] [address] PPO [id number] Unknown JAMEE [id number] Unknown [id number] Social History Date Type Detail Facility Start: 07-05-2014 End: 05-18-2022 Tobacco smoking status NHIS Never smoked tobacco [facility] Start: 04-09-2020 End: 11-07-2024 Alcohol intake Current non-drinker of alcohol (finding) [facility] Start: 11-22-2020 History SDOH Alcohol Frequency 1 [facility] Start: 11-06-2019 End: 11-22-2020 History SDOH Alcohol Std Drinks 98 [facility] Start: 11-22-2020 History SDOH Social Connections Phone 5 [facility] Start: 11-22-2020 History SDOH Social Connections Jainism 3 [facility] Start: 11-22-2020 History SDOH Physica l Activity DPW 2 [facility] Start: 11-06-2019 Education 17 [facility] Start: 1975 Sex Assigned At Not on file [facility] Start: 10-31-2020 End: 11-19-2021 Exposure to SARS-CoV-2 (event) Not sure [facility] Start: 07-05-2014 End: 05-18-2022 Tobacco use and exposure Smokeless tobacco non-user [facility] Work Phone: Start: 03-27-2016 Tobacco smoking stat us NHIS Unknown if ever smoked [facility] Start: 12-24-[address] [facility] Start: 12-24-[address] [facility] Start: 1975 Sex Assigned At Female W [facility] Start: 11-22-2020 End: 08-07-2023 [facility] Start: 11-22-2020 End: 08-07-2023 Social connection and isolation panel [facility] Start: 03-14-2012 How often do you get together with friends or relatives? Patient refused [facility] Do you belong to any clubs or organizations such as jainism groups, unions, fraternal or athletic groups, or school groups? Yes [facility] Are you now , , , , never or living with a partner? [facility] How often to you hav e a drink containing alcohol? Never [facility] Do you feel stress - tense, restless, nervous, or anxious, or unable to sleep at night because your mind is troubled all the time - these days [OSQ] Not at all [facility] (I/We) worried emily er (my/our) food would run out before (I/we) got money to buy more. Never true [facility] At any time in the p ast 12 months, were you homeless or living in [facility] [including now]? No [facility] Functional Status Date Assessment Result Facility 07-05-2014 Are you deaf, or do you have serious difficulty hearing No 07/05/2014 10:23 AM Mela Kinney LPN No [facility] 07-05-2014 Are you blind, or do you have serious difficulty seeing, even when wearing glasses No 07/05/2014 10:23 AM Mela Kinney LPN No [facility] 07-05-2014 Do you have serious difficulty walking or climbing stairs No 07/05/2014 10:23 AM Mela Kinney LPN No [facility] 07-05-2014 Do you have difficul ty dressing or bathing No 07/05/2014 10:23 AM Mela Kinney LPN No [facility] 07-05-2014 Because of a physica l, mental, or emotional condition, do you have difficulty doing errands alone such as visiting a physician's office or shopping No 07/05/2014 10:23 AM EDT Mela Ferraro LPN No [facility] Mental Status Date Assessment Result Facility 07-05-2014 Because of a physica l, mental, or emotional condition, do you have serious difficulty concentrating, remembering, or making decisions No 07/05/2014 10:23 AM EDT Mela Ferraro LPN No [facility] Clinical Notes 05-20-2007 to 11-20-2024 Vidya Torres MD - 11/20/2024 8:27 PM EDTPatient InstructionsMaximiliano Marroquin APRN.CLOTH CUTTER - 11/04/2024 7:08 AM Nguyen Cortes Mammo Tech - 10/05/2024 12:50 PM EDTPatient Instructions Note Date & Type Note Facility 11-20-2024 Note HNO ID: [id number] Author: VIDYA TORRES MD Service: ? Author Type: Physician Type: Progress Notes Filed: 11/20/2024 20:32 Note Text: Brooke Nelson is a 49 year old female who presented for maintenance chief ultrasound today. Encounter Diagnosis ICD-10-CM 1. Abnormal uterine bleeding N93.9 Please see report under imaging tab. Vidya Torres MD November 20, 2024 8:27 PM [facility] 11-20-2024 History of Presen t illness Narrative Brooke Nelson is a 49 year old female who presented for maintenance chief ultrasound today. Encounter Diagnosis ICD-10-CM 1. Abnormal uterine bleeding N93.9 Please see report under imaging tab. Vidya Torres MD November 20, 2024 8:27 PM documented in this encounter [facility] 11-04-2024 Instructions Maximiliano Marroquin APRN.CLOTH CUTTER - 11/04/2024 7:28 AM EDT Calcium and Vitamin D Supplementation For more information:[facility] Osteopenia Calcium Age Recommended Daily Allowance Age 19-50 1000 mg elemental calcium per day Age > 50 or menopausal 1200 mg elemental calcium per day Vitamin D Age Recommended Daily Allowance Age < 70 600 international units Vitamin D per day Age > 70 800 international units Vitamin D per day Centers for Disease Control and Prevention recommends that all adults engage in at least 150 to 300 minutes per week of moderate-intensity activity or 75 minutes to 150 minutes per week of vigorous-intensity aerobic physical activity (or a combination of both). [employer] Gyne[employer] (ACOG) and several other major osteoporosis guideline groups recommend screening for osteoporosis with Dual-energy X-ray Absorptiometry (DXA) in all postmenopausal documented in this encounter [facility] 11-04-2024 Note HNO ID: [id number] Author: MAXIMILIANO MARROQUIN APRN.AUNG Service: ? 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 Head is a 49 year old who presents for an annual gynecologic exam with concerns of irregular periods that range in heaviness of flow. Periods were irregular to minimal last year. 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 Postmenopausal: No. HRT use: No. 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 History LMP: 10/18/2023 (Approximate), Having periods Age at Menarche: Age at First : Age at Menopause: Mortgage Broker History Comments: Sexual Activity: Yes; Male Contraception: No contraception data on record PAST MEDICAL HISTORY Diagnosis Date Essential hypertension, benign After pregnancies Kidney stone Obesity CAROLINE (obstructive sleep apnea) Post-cholecystectomy syndrome PAST SURGICAL HISTORY Procedure Laterality Date CHOLECYSTECTOMY 12/2015 COLONOSCOPY SCREENING 09/2023 NEPHROLITHOTOMY REMOVAL STAGE 1 03/2016 blasted PAST SURGICAL HISTORY OF 1985 Eye surgery as a child for hole in retina PAST SURGICAL HISTORY OF [place] tooth extraction TONSILLECTOMY AND ADENOIDECTOMY FAMILY HISTORY Problem Relation Age of Onset Diabetes Mother Diabetes Father Hypertension Father Diabetes Maternal Grandfather Heart Maternal Grandfather NE other (spherocytosis) Son SOCIAL HISTORY Social History Tobacco Use Smoking status: Never Smokeless tobacco: Never Vaping Use Vaping status: Never Used Substance Use Topics Alcohol use: No Drug use: No REVIEW OF SYSTEMS Abdomen: No abdominal pain, nausea, vomiting, diarrhea, or constipation. No bloating, early satiety, indigestion, or increased flatulence. Bladder: No dysuria, gross hematuria, urinary frequency, urinary urgency, or incontinence Breast: No breast lumps, nipple d/c, overlying skin changes, redness or skin retraction Allergies and current medication updated:Yes SENSITIVE EXAM: The sensitive examination was discussed with the Patient or Patient's Authorized Vacuum Caster. As applicable, any other physician, advance practice provider, medical student, or other health professional student that will be observing or involved in the sensitive examination for educational or training purposes was discussed with the Patient or Authorized Vacuum Caster. The Patient or Authorized Vacuum Caster has agreed to proceed with the sensitive examination. (Sensitive examination includes inspection and/or palpation of the breasts, pelvis, prostate and anorectal regions). EXAM: BP 120/66 Ht 5' 4 (1.63m) Wt 238 lb (108.0kg) LMP 10/23/2024 BMI 40.83 kg/(m2). GENERAL: pleasant, female in no apparent distress HEENT: Normocephalic, atraumatic, mucus membranes moist, and no lesions NECK: Supple, full range of motion, no adenopathy, and thyroid normal DERMATOLOGY: Normal, without lesions, non-icteric, and non-hirsute BREAST: soft, non-tender, symmetric, no dominant mass, normal nipple-areolar complex, no lymphadenopathy, and no nipple discharge CHEST: Normal inspiratory effort ABDOMEN: soft, non-tender, and no masses PELVIC: external genitalia normal, normal Bartholin's glands, urethra, Sarita's glands, no vulvar lesions, + difficult to visualize cervix due to menses and vaginal lewis, good vaginal support, + menses, normal appearing perineal body and perianal region BIMANUAL: uterus normal size, shape and consistency, no adnexal masses + mild tenderness with palpation RECTOVAGINAL: deferred. NEURO: alert and oriented x3,exam grossly non-focal EXTREMITIES: normal ASSESSMENT/PLAN: 1) Health maintenance: Pap/HPV up to date 2023. Mammogram ordered Nutrition, exercise and routine health maintenance exams reviewed. Calcium/Vitamin D supplementation information provided. Colon cancer screening: up to date with screening TSH/lipids/glucose: followed by PCP 2) Follow up one year or sooner as needed Abnormal uterine bleeding - ICD9: 626.9, ICD10: N93.9 - Labs and ultrasound ordered - Will likely need EMB Maximiliano Marroquin APRN.[facility] 11-04-2024 History of Presen t illness Narrative Gear Cutting Machine Operator offered: Patient declinesJenny Head is a 49 year old who presents for an annual gynecologic exam with concerns of irregular periods that range in heaviness of flow. Periods were irregular to minimal last year. 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 Postmenopausal: No. HRT use: No. 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 History LMP: 10/18/2023 (Approximate), Having periods Age at Menarche: Age at First : Age at Menopause: Mortgage Broker History Comments: Sexual Activity: Yes; Male Contraception: No contraception data on record PAST MEDICAL HISTORY Diagnosis Date Essential hypertension, benign After pregnancies Kidney stone Obesity CAROLINE (obstructive sleep apnea) Post-cholecystectomy syndrome PAST SURGICAL HISTORY Procedure Laterality Date CHOLECYSTECTOMY 12/2015 COLONOSCOPY SCREENING 09/2023 NEPHROLITHOTOMY REMOVAL STAGE 1 03/2016 blasted PAST SURGICAL HISTORY OF 1985 Eye surgery as a child for hole in retina PAST SURGICAL HISTORY OF [place] tooth extraction TONSILLECTOMY & ADENOIDECTOMY <AGE 10 FAMILY HISTORY Problem Relation Age of Onset Diabetes Mother Diabetes Father Hypertension Father Diabetes Maternal Grandfather Heart Maternal Grandfather NE other (spherocytosis) Son SOCIAL HISTORY Social History Tobacco Use Smoking status: Never Smokeless tobacco: Never Vaping Use Vaping status: Never Used Substance Use Topics Alcohol use: No Drug use: No REVIEW OF SYSTEMS Abdomen: No abdominal pain, nausea, vomiting, diarrhea, or constipation. No bloating, early satiety, indigestion, or increased flatulence. Bladder: No dysuria, gross hematuria, urinary frequency, urinary urgency, or incontinence Breast: No breast lumps, nipple d/c, overlying skin changes, redness or skin retraction Allergies and current medication updated:Yes SENSITIVE EXAM: The sensitive examination was discussed with the Patient or Patient's Authorized Vacuum Caster. As applicable, any other physician, advance practice provider, medical student, or other health professional student that will be observing or involved in the sensitive examination for educational or training purposes was discussed with the Patient or Authorized Vacuum Caster. The Patient or Authorized Vacuum Caster has agreed to proceed with the sensitive examination. (Sensitive examination includes inspection and/or palpation of the breasts, pelvis, prostate and anorectal regions). EXAM: BP 120/66 Ht 5' 4 (1.63m) Wt 238 lb (108.0kg) LMP 10/23/2024 BMI 40.83 kg/(m^2). GENERAL: pleasant, female in no apparent distress HEENT: Normocephalic, atraumatic, mucus membranes moist, and no lesions NECK: Supple, full range of motion, no adenopathy, and thyroid normal DERMATOLOGY: Normal, without lesions, non-icteric, and non-hirsute BREAST: soft, non-tender, symmetric, no dominant mass, normal nipple-areolar complex, no lymphadenopathy, and no nipple discharge CHEST: Normal inspiratory effort ABDOMEN: soft, non-tender, and no masses PELVIC: external genitalia normal, normal Bartholin's glands, urethra, Sarita's glands, no vulvar lesions, + difficult to visualize cervix due to menses and vaginal lewis, good vaginal support, + menses, normal appearing perineal body and perianal region BIMANUAL: uterus normal size, shape and consistency, no adnexal masses + mild tenderness with palpation RECTOVAGINAL: deferred. NEURO: alert and oriented x3,exam grossly non-focal EXTREMITIES: normal ASSESSMENT/PLAN: 1) Health maintenance: Pap/HPV up to date 2023. Mammogram ordered Nutrition, exercise and routine health maintenance exams reviewed. Calcium/Vitamin D supplementation information provided. Colon cancer screening: up to date with screening TSH/lipids/glucose: followed by PCP 2) Follow up one year or sooner as needed Abnormal uterine bleeding - ICD9: 626.9, ICD10: N93.9 - Labs and ultrasound ordered - Will likely need EMB Maximiliano Marroquin APRN.[facility] documented in this encounter [facility] 10-05-2024 History of Presen t illness Narrative Radiology Service Progress Note PATIENT NAME: Brooke Nelson DATE OF SERVICE: October 05, 2024 TIME: 1:33 PM PATIENT IDENTITY VERIFICATION COMPLETED USING TWO (2) IDENTIFIERS: Name and Date of confirmed by patient verbally. FALL SCREENING: Has the patient had 2 falls in the last year or 1 fall with injury or currently using an Ambulatory Assistive Device (Walker, Cane, Wheelchair, Crutches, etc.)? No PATIENT GENDER DATA: Assigned female at . status: : No status: NO. PATIENT RELEVANT IMPLANT DATA REVIEWED: Not Applicable PATIENT PRESENTS WITH AN IMPLANTABLE OR ATTACHED GRADES 1 THRU 6 HOME TEACHER: No RADIOLOGY DEPARTMENT: Mammography PERIPHERAL IV DATA: Not applicable SIGNED BY: Mary Hanson October 05, 2024 1:33 PM documented in this encounter [facility] 10-05-2024 Note HNO ID: [id number] Author: NGUYEN RANGEL Mammo Tech Service: ? Author Type: Us Marketing Director Type: Progress Notes Filed: 10/05/2024 13:33 Note Text: Radiology Service Progress Note PATIENT NAME: Brooke Nelson DATE OF SERVICE: October 05, 2024 TIME: 1:33 PM PATIENT IDENTITY VERIFICATION COMPLETED USING TWO (2) IDENTIFIERS: Name and Date of confirmed by patient verbally. FALL SCREENING: Has the patient had 2 falls in the last year or 1 fall with injury or currently using an Ambulatory Assistive Device (Walker, Cane, Wheelchair, Crutches, etc.)? No PATIENT GENDER DATA: Assigned female at . status: : No status: NO. PATIENT RELEVANT IMPLANT DATA REVIEWED: Not Applicable PATIENT PRESENTS WITH AN IMPLANTABLE OR ATTACHED GRADES 1 THRU 6 HOME TEACHER: No RADIOLOGY DEPARTMENT: Mammography PERIPHERAL IV DATA: Not applicable SIGNED BY: Nguyen [email or web address] October 05, 2024 1:33 PM [facility] 05-30-2024 Telephone encounter Note Prescription Refill Information The patient has been identified by name and date of : Yes Caregiver verified no other encounters exist for this prescription request: Yes Caregiver confirmed with patient/requestor that no other refills are due, in the near future, with this provider at this time: Yes The last office visit in the department: 09/21/23 Does the patient have a future office visit with this provider/department: No My chart Message sent Requested Prescriptions Pending Prescriptions Disp Refills lisinopril (ZESTRIL) 20 mg tablet 30 tablet 5 Sig: Take 1 tablet by mouth once daily. Ruby Wang LPN May 30, 2024 8:18 AM [facility] 05-30-2024 Miscellaneous Notes Prescription Refill Information The patient has been identified by name and date of : Yes Caregiver verified no other encounters exist for this prescription request: Yes Caregiver confirmed with patient/requestor that no other refills are due, in the near future, with this provider at this time: Yes The last office visit in the department: 09/21/23 Does the patient have a future office visit with this provider/department: No My chart Message sent Requested Prescriptions Pending Prescriptions Disp Refills lisinopril (ZESTRIL) 20 mg tablet 30 tablet 5 Sig: Take 1 tablet by mouth once daily. Ruby Wang LPN May 30, 2024 8:18 AM documented in this encounter [facility] 12-07-2023 Telephone encounter Note The following approved medication requests have been transmitted electronically. Requested Prescriptions Signed Prescriptions Disp Refills lisinopril (ZESTRIL) 20 mg tablet 30 tablet 5 Sig: Take 1 tablet by mouth once daily. Authorizing Provider: ALFREDO BURLESON APRN.CNP [facility] 12-07-2023 Miscellaneous Notes The following approved medication requests have been transmitted electronically. Requested Prescriptions Signed Prescriptions Disp Refills lisinopril (ZESTRIL) 20 mg tablet 30 tablet 5 Sig: Take 1 tablet by mouth once daily. Authorizing Provider: ALFREDO BURLESON APRN.CNP Prescription Refill Information The patient has been identified by name and date of : Yes Caregiver verified no other encounters exist for this prescription request: Yes Caregiver confirmed with patient/requestor that no other refills are due, in the near future, with this provider at this time: Yes The last office visit in the department: 09/21/23 Does the patient have a future office visit with this provider/department: No Requested Prescriptions Pending Prescriptions Disp Refills lisinopril (ZESTRIL) 20 mg tablet 30 tablet 5 Sig: Take 1 tablet by mouth once daily. Fercho King LPN December 05, 2023 10:10 AM documented in this encounter [facility] 12-05-2023 Telephone encounter Note Prescription Refill Information The patient has been identified by name and date of : Yes Caregiver verified no other encounters exist for this prescription request: Yes Caregiver confirmed with patient/requestor that no other refills are due, in the near future, with this provider at this time: Yes The last office visit in the department: 09/21/23 Does the patient have a future office visit with this provider/department: No Requested Prescriptions Pending Prescriptions Disp Refills lisinopril (ZESTRIL) 20 mg tablet 30 tablet 5 Sig: Take 1 tablet by mouth once daily. Fercho King LPN December 05, 2023 10:10 AM [facility] 11-02-2023 Instructions Maximiliano Marroquin APRN.[facility] - 11/02/2023 2:08 PM EDT Menopause Resources: [employer]ormone/Menopause https://[employer]/help-in-a -xoggl-xwvex-vlc-nscms-fvu-yles az-dnuyurbghh-mjlhowah/ [facility] www.hormone.org [place] [employer] [phone] www.menopause.org Menopause and Me https://www.menopauseandme.co.u k/en-gb Red Hot Mamas https://redhotmamas.org/ Not all WOMEN experience menopause in the same way. For some, menopause can bring on an array of uncomfortable symptoms. Others may experience few if any discomforts. This information has been prepared to help you manage the most common changes associated with the midlife transition. RELIEVING HOT FLASHES * Identify and avoid your hot flash triggers. Common triggers may include stress, caffeine, alcohol, spicy foods, tight clothing, heat and cigarette smoke. * Keep the bedroom cool. Use fans during the day. Wear light layers of clothes with natural fibers. * Try deep, slow abdominal paced breathing (6 to 8 breaths per minute). Practice deep breathing for 15 minutes in the morning, 15 minutes in the evening and at the onset of hot flashes. * Exercise daily. Walking, swimming, dancing and bicycling with helmet are good choices along with yoga. * Add soy protein in the form of foodstuffs NOT supplements(40-60 mg) to your diet daily in place of animal protein. Promensil and isoflavone tablets have NOT been shown to significantly help menopausal symptoms * Black cohosh (in the form of Remifemin) can be used for hot flashes and has been approved by [place] [employer] [place] for only 6 months of use, however has NOT been well studied in the [place] for terminologist effects AND THERE HAVE BEEN REPORTS OF LIVER TOXICITY WITH BLACK COHOSH USE. (Avoid kava kava, valerian root and beware that most herbal products are NOT regulated in the [place] and some have been associated with liver toxicity) NOTE: HORMONE THERAPY (HT) is the MOST EFFECTIVE treatment and the only FDA approved treatment for menopausal symptoms. Any form of hormones, including 'bioidentical' hormones have risks as well as benefits. * Antidepressants like effexor (venlaflaxine) a NSRI or Pristiq (desvenlafaxine) another agent, neurontin (gabapentin) may help block hot flashes and all have risks and benefits like any prescription or off the shelf medicine. * Use of bellergal is discouraged as it contains an addictive barbiturate. RELIEVING INSOMNIA * Keep the bedroom cool to prevent night sweats. Special chill pillows that are cool are available. * Avoid using sleeping pills. * Exercise daily but not right before bedtime. * Avoid caffeine and alcohol at night. * Take a warm shower at bedtime. * Wear socks to bed (lowers central body temperature) COPING :WITH MOOD SWINGS, FEARS AND DEPRESSION * Find a self-calming skill to practice, such as yoga, meditation or slow deep breathing. * Avoid tranquilizers, if possible, however prescription anti-depressants can be very effective. * Engage in a creative outlet that fosters a sense of achievement. * Stay connected with your family and community; nurture your friendships. RELIEVING PAINFUL INTERCOURSE * Try using a vaginal water-based moisturizing lotion 3 times a week (like replens or SILK-E) or lubricant during intercourse like KY jelly or lubrin or astroglide. *Local estrogen treatments for the vagina/bladder like estring vaginal ring can be used and estring can be used in breast cancer survivors as only a local therapy PREVENTING OSTEOPOROSIS * Calcium and vitamin D can slow bone loss and may decrease fractures. Consume1,500 milligrams of calcium a day in divided doses. Calcium is necessary but not always sufficient. Good sources of calcium are calcium supplements, like Tums, fruit juices and breads; lowfat dairy products; green leafy vegetables such as broccoli, kale and spinach greens, almonds; and soy milk. Calcium CITRATE like Citracal D is well absorbed with or without food/stomach acid and is the preferred calcium supplement in women on stomach acid blockers and women with a history of kidney stones. * Vitamin D aids in the absorption of calcium and stimulates bone formation. Consume at least OF SEPARATE 1,000 iu international units of vitamin D a day and 2,000 iu daily if you have been found to be low * Eat foods low in sodium, low in animal protein and low in caffeine. * Bone mass is built before menopause as a result of exercising, diet, and genetics. Exercises that increase bone mass are the ones that make the muscles work against gravity. Walking and muscle-building exercise may reduce bone loss and fractures and improve balance. Visit www.nof.org, the National Osteoporosis Foundation web site for more bone tips. PREVENTING HEART DISEASE * Eat a variety of vegetables, fruits and whole grains, including soy foods (NOT supplements). Limit salt, cholesterol and fat, especially animal fat. Consider ingesting 25 grams of soy a day. Avoid Transfats the 'partially hydrogenated oils.' Consume the omega 3 fats in flaxseed, fish, tuna, salmon, and walnuts and almonds at least twice a week. * Get a least 30-60 minutes of moderate exercise over the course of each day. Many activities increase the heart rate, including gardening, walking, dancing and aerobic exercises. The activity period does not need to be continuous. Consider getting a pedometer to monitor your activity and strive to walk at least 10,000 steps a day. * Do NOT smoke.Even 1-2 cigarrettes a day increases risk. * Maintain a healthy weight. Know your BMI (body mass index) * Follow your physician's instructions for controlling high blood pressure-note new guidelines indicate that BP of over 115/75 are associated with potential organ damage. Diabetes prevention and control is very important as diabetes is a 'heart diease equivalent'. Cholesterol lowering with diet and statin agents have been shown to reduce the risk of heart disease. Consider having an [facility] blood test for further cardiac risk assessment if you have borderline elevations in the blood lipids/fats. * Take a vitamin supplement under physician guidance. Choose one that contains the antioxidants including vitamins E and C and B complex like centrum silver. Avoid taking B-carotene supplements. * Take one aspirin daily, ONLY if approved by your physician based on your risk for heart disease. (Women at LOW risk for heart disease should NOT take daily aspirin-however women by age 65 should consider a baby aspirin daily as it has been associated with a 30% stroke risk reduction). 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 Menses: irregularly/minimally. Has not gone 12+ months without bleeding yet. Contraception: withdrawal HPV vaccine: No Last Pap: 08/29/2016 normal HPV: 08/25/2016 negative History of abnormal pap: No Last mammogram: 2023 normal Sexually active: Yes History of STDS: None Patient concerns for STD exposure: No. 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 History Comments: Sexual Activity: Yes; Male Contraception: No contraception data on record PAST MEDICAL HISTORY Diagnosis Date Essential hypertension, benign After pregnancies Kidney stone Obesity CAROLINE (obstructive sleep apnea) Post-cholecystectomy syndrome PAST SURGICAL HISTORY Procedure Laterality Date CHOLECYSTECTOMY 12/2015 COLONOSCOPY SCREENING 09/2023 NEPHROLITHOTOMY REMOVAL STAGE 1 03/2016 blasted PAST SURGICAL HISTORY OF 1985 Eye surgery as a child for hole in retina PAST SURGICAL HISTORY OF [place] tooth extraction TONSILLECTOMY & ADENOIDECTOMY <AGE 10 FAMILY HISTORY Problem Relation Age of Onset Diabetes Mother Diabetes Father Hypertension Father Diabetes Maternal Grandfather Heart Maternal Grandfather NE other (spherocytosis) Son SOCIAL HISTORY Social History Tobacco Use Smoking status: Never Smokeless tobacco: Never Vaping Use Vaping Use: Never used Substance Use Topics Alcohol use: No Drug use: No REVIEW OF SYSTEMS Abdomen: No abdominal pain, nausea, vomiting, diarrhea, or constipation. No bloating, early satiety, indigestion, or increased flatulence. Bladder: No dysuria, gross hematuria, urinary frequency, urinary urgency, or incontinence. Breast: No breast lumps, nipple d/c, overlying skin changes, redness or skin retraction. Allergies and current medication updated:Yes EXAM: BP 132/90 Ht 5' 4.402 (1.64m) Wt 238 lb (108.0kg) LMP 10/18/2023 BMI 40.33 kg/(m^2). GENERAL: pleasant, female in no apparent distress HEENT: Normocephalic, atraumatic, mucus membranes moist, and no lesions NECK: Supple, full range of motion, no adenopathy, and thyroid normal DERMATOLOGY: Normal, without lesions, non-icteric, and non-hirsute BREAST: soft, non-tender, symmetric, no dominant mass, normal nipple-areolar complex, no lymphadenopathy, and no nipple discharge CHEST: Normal inspiratory effort ABDOMEN: soft, non-tender, and no masses PELVIC: external genitalia normal, normal Bartholin's glands, urethra, Sarita's glands, no vulvar lesions, no cervical lesions, good vaginal support, physiologic discharge present, normal appearing perineal body and perianal region BIMANUAL: limited due to habitus RECTOVAGINAL: deferred. NEURO: alert and oriented x3,exam grossly non-focal EXTREMITIES: normal ASSESSMENT/PLAN: 1) Health maintenance: Pap done with HPV. Mammogram up to date . Nutrition, exercise and routine health maintenance exams reviewed. Colon cancer screening: up to date with screening Lipids/glucose: followed by PCP Reviewed perimenopause symptoms and definition of menopause. Reviewed what to expect. To notify with heavy bleeding or postmenopausal bleeding. 2) Contraception: withdrawal. Reviewed risk of up until menopause. 3) STD screening: Declined STD check. 4) Follow up one year or sooner as needed Diastolic elevated today. To follow up with PCP if BP remains elevated. Maximiliano Marroquin APRN.CNP documented in this encounter [facility] 10-09-2023 Note Formatting of this n ote might be different from the original. The patient received a copy of Colonoscopy discharge instructions that contain information for how to contact the physician who performed the procedure and when to seek medical care. [facility] 10-09-2023 Miscellaneous Notes The patient received a copy of Colonoscopy discharge instructions that contain information for how to contact the physician who performed the procedure and when to seek medical care. documented in this encounter [facility] 10-09-2023 Nurse Note Patient arrived laying on left side. Patient does not appear to be in any pain at this time. Abdomen appears to be nondistended and soft to palpation. Patient encouraged to belch and pass gas as needed. [facility] 10-09-2023 Nurse Note Patient arrived laying on left side. Patient does not appear to be in any pain at this time. Abdomen appears to be nondistended and soft to palpation. Patient encouraged to belch and pass gas as needed. documented in this encounter [facility] 10-09-2023 Attending History and physical note UPDATED PROCEDURAL SEDATION HISTORY AND PHYSICAL EXAMINATION SERVICE DATE: 10/09/2023 SERVICE TIME: 11:38 PHYSICAL EXAM MUST BE COMPLETED ON ADMISSION PROCEDURE: colonoscopy, possible bpsies Procedure Indications: screening for colon ancer The History and Physical (completed in the past 30 days) has been reviewed and the patient has been examined. The contents accurately reflect the patient's condition with the following additions or revisions since the H&P was completed. ASA Class: ASA Class:: Patient with severe systemic disease Examination indicates no changes. AIRWAY: Airway Visualization of Uvula: Yes Mouth opening greater than 2 fingerbreadths: Yes Neck Full Range of Motion: Yes LUNGS: Lungs clear to auscultation CARDIAC: Regular rhythm,Regular rate Provisional Diagnosis/Treatment Plan: colonoscopy, possible biopsies SEDATION GOAL: Moderate This H&P can be found in the Electronic Medical Record. SIGNATURE: Jeaneth Caputo MD PATIENT NAME: Brooke Nelson DATE: October 09, 2023 TIME: 11:40 AM Source Note - Jeaneth Caputo MD - 10/09/2023 12:00 PM EDT HISTORY AND PHYSICAL Brooke Nelson 1975 REFERRING PHYSICIAN: Duane Rowland MD CHIEF COMPLAINT: Consult (colonoscopy) HPI: The patient is a 48 year old female referred for endoscopy. This is for screening for colon cancer The patient denies blood in stools, denies abdominal pain, and denies changes in bowel habits. The patient notes no colon cancer in immediate family. The patient has not had previous colonoscopy. Her past medical history includes: CAROLINE and BMI 41 and HTN. (ASA III) PAST MEDICAL HISTORY PAST MEDICAL HISTORY Diagnosis Date Essential hypertension, benign After pregnancies Kidney stone Obesity CAROLINE (obstructive sleep apnea) Post-cholecystectomy syndrome PAST SURGICAL HISTORY PAST SURGICAL HISTORY Procedure Laterality Date CHOLECYSTECTOMY 12/2015 NEPHROLITHOTOMY REMOVAL STAGE 1 03/2016 blasted PAST SURGICAL HISTORY OF 1985 Eye surgery as a child for hole in retina PAST SURGICAL HISTORY OF [place] tooth extraction TONSILLECTOMY & ADENOIDECTOMY CURRENT MEDICATIONS Current Outpatient Medications Medication Sig diphenhydramine HCl (BENADRYL ALLERGY ORAL) Take by mouth. predniSONE (DELTASONE) 10 mg tablet Take 4 tabs daily x 3 days, then 3 tabs x 3 days, 2 tabs x 3 days, then 1 tab x3 days with food. cholestyramine-sucrose (QUESTRAN) 4 gram powder Take 4 g by mouth once daily. lisinopril (ZESTRIL) 20 mg tablet Take 1 tablet by mouth once daily. loratadine (CLARITIN) 10 mg tablet Take 1 tablet by mouth once daily. fluticasone (FLONASE) 50 mcg/actuation nasal spray Use 2 Sprays in each nostril once daily. Rinse mouth after use. CPAP (Provide supplies) AutoPAP [id number], mask (pt pref), chin strap, heated tubing & humidity, filters. Lifetime supplies. CAROLINE: G47.33. Provide 30 day download to [phone] [facility] [employer] (BLOOD PRESSURE CUFF) [facility] Each once daily. 1 Large Cuff. ICD-10: I10.0 Hypertension Blood Pressure Test Kit-Large kit 1 Each once daily. Blood Pressure Test Kit-Wrist (BLOOD PRESSURE UNIT) kit 1 Each once daily. CPAP Initiate Auto PAP @ 5-20 cm of water with humidification. Mask (per patient preference) optional chin strap (if indicated) , filters, tubing, humidifier and lifetime supplies. Cholecalciferol, Vitamin D3, 1,000 unit cap Take 1 capsule by mouth once daily. (Patient not taking: Reported on 04/09/2020 ) No current facility-administered medications for this visit. ALLERGIES: Penicillins PERSONAL HISTORY: SOCIAL HISTORY Social History Tobacco Use Smoking status: Never Smokeless tobacco: Never Vaping Use Vaping Use: Never used Substance Use Topics Alcohol use: No Drug use: No FAMILY HISTORY FAMILY HISTORY Problem Relation Age of Onset Diabetes Mother Diabetes Father Hypertension Father Diabetes Maternal Grandfather Heart Maternal Grandfather NE other (spherocytosis) Son REVIEW OF SYSTEMS: General: The patient denies fatigue, denies weight loss, denies weight gain, denies feeling hot, and denies feelings of cold. Eyes: The patient denies glaucoma, NOTES eye injury/surgery, wears glasses or contacts. Ear/Nose/Throat: The patient NOTES allergies, denies hayfever, denies ear infections, and denies bloody noses. Cardiovascular: The patient denies chest pain, denies heart disease, NOTES high blood pressure,denies cardiac stent, denies prior heart attack, denies irregular heart beat, denies high cholesterol, denies poor circulation, denies heart failure, other cardiac issues, denies claudication, denies cold feet, denies peripheral arterial stent. Respiratory: The patient denies tuberculosis, denies pneumonia, denies frequent cough, denies pulmonary embolism, NOTES shortness of breath, and denies coughing up blood. Gastrointestinal: The patient denies difficulty swallowing, denies acid reflux, denies ulcers, denies vomiting, denies jaundice/hepatitis, NOTES gallbladder problems, denies black or tarry stools, denies hemorrhoids, denies bleeding from rectum, denies diverticulitis, denies constipation, denies diarrhea, denies loss of stool control, and denies hernias. Kidney/Bladder: The patient NOTES kidney stones, denies urine infections, and denies bloody urine. Skin: The patient denies a history of skin cancer, denies bleeding/changing moles, and denies a history of skin rash. Neurologic: The patient denies a history of epilepsy/convulsions, denies headaches, denies head/spinal injuries, and denies stroke/TIA. Psychiatric: The patient denies psychiatric medications, denies depression, and denies voices, denies substance abuse. Endocrine: The patient denies thyroid disorders, denies diabetes, and denies hormonal problems. Hematologic: The patient denies a history of bruising, denies bleeding, and denies anemia, denies blood clots. Infections: The patient denies a history of measles and mumps, denies rheumatic fever, and denies sexually transmitted diseases. Musculoskeletal: The patient denies back pain/injury, denies back problems, denies sciatica, denies knee/foot trouble, denies arthritis, or denies gout. When was patient's last Mammogram screening? 11/19/2021 Last Colonoscopy: none Leanna Camilo RN PHYSICAL EXAMINATION: General: The patient is 48 year old female, well nourished, well hydrated in no acute distress. The patient is oriented to time, place, and person. VITALS: Blood pressure 140/98, pulse 94, temperature 36.7 C (98 F), height 162.6 cm (5' 4), weight 108.8 kg (239 lb 12.8 oz), last menstrual period 07/13/2023, SpO2 97%. Body mass index is 41.16 kg/m . Head: Normal cephalic, atraumatic Eyes: pupils are equally round, sclera are clear/anicteric Neck is supple with no tracheal deviation Cardiac: normal heart sounds, regular Respiratory: Normal respiratory excursion and pattern. Abdominal exam: benign Extremities: no clubbing, cyanosis or edema. Neuro: non focal Psych: normal mood IMPRESSION: screening for colon cancer PLAN: I have discussed the above with the patient. I have offered colonoscopy , possible biopsies I have explained the procedure to the patient. I have counseled the patient as to the risks of the procedure, including but not limited to: infection, bleeding, injury to any intrabdominal organs such as liver/spleen, perforation of the GI tract, inability to complete the procedure, complications of anesthesia, etc. - the patient understands. I have explained to the patient the difference between IV conscious sedation and MAC anesthesia - and I have offered either, according to the patient's wishes. I have explained that with IV conscious sedation there is no anesthesia provider available and therefore there is a limitation of the amount of IV medications that can be given and that the patient may wake up in the middle of the procedure and/or experience pain/discomfort during the procedure. Further discussion was done and the patient was given the opportunity to ask questions and all questions were answered. The patient chooses IV conscious sedation. The patient wishes to proceed. I have answered all questions to the patient s satisfaction and the patient has no further questions. Diagnoses: (Z12.11) Screening for colon cancer (Z68.41) BMI 40.0-44.9, adult (HCC) [facility] 10-09-2023 History and physical note HISTORY AND PHYSICAL Brooke Nelson 1975 REFERRING PHYSICIAN: Duane Rowland MD CHIEF COMPLAINT: Consult (colonoscopy) HPI: The patient is a 48 year old female referred for endoscopy. This is for screening for colon cancer The patient denies blood in stools, denies abdominal pain, and denies changes in bowel habits. The patient notes no colon cancer in immediate family. The patient has not had previous colonoscopy. Her past medical history includes: CAROLINE and BMI 41 and HTN. (ASA III) PAST MEDICAL HISTORY PAST MEDICAL HISTORY Diagnosis Date Essential hypertension, benign After pregnancies Kidney stone Obesity CAROLINE (obstructive sleep apnea) Post-cholecystectomy syndrome PAST SURGICAL HISTORY PAST SURGICAL HISTORY Procedure Laterality Date CHOLECYSTECTOMY 12/2015 NEPHROLITHOTOMY REMOVAL STAGE 1 03/2016 blasted PAST SURGICAL HISTORY OF 1985 Eye surgery as a child for hole in retina PAST SURGICAL HISTORY OF [place] tooth extraction TONSILLECTOMY & ADENOIDECTOMY CURRENT MEDICATIONS Current Outpatient Medications Medication Sig diphenhydramine HCl (BENADRYL ALLERGY ORAL) Take by mouth. predniSONE (DELTASONE) 10 mg tablet Take 4 tabs daily x 3 days, then 3 tabs x 3 days, 2 tabs x 3 days, then 1 tab x3 days with food. cholestyramine-sucrose (QUESTRAN) 4 gram powder Take 4 g by mouth once daily. lisinopril (ZESTRIL) 20 mg tablet Take 1 tablet by mouth once daily. loratadine (CLARITIN) 10 mg tablet Take 1 tablet by mouth once daily. fluticasone (FLONASE) 50 mcg/actuation nasal spray Use 2 Sprays in each nostril once daily. Rinse mouth after use. CPAP (Provide supplies) AutoPAP [id number], mask (pt pref), chin strap, heated tubing & humidity, filters. Lifetime supplies. CAROLINE: G47.33. Provide 30 day download to [phone] [facility] Each once daily. 1 Large Cuff. ICD-10: I10.0 Hypertension Blood Pressure Test Kit-Large kit 1 Each once daily. Blood Pressure Test Kit-Wrist (BLOOD PRESSURE UNIT) kit 1 Each once daily. CPAP Initiate Auto PAP @ 5-20 cm of water with humidification. Mask (per patient preference) optional chin strap (if indicated) , filters, tubing, humidifier and lifetime supplies. Cholecalciferol, Vitamin D3, 1,000 unit cap Take 1 capsule by mouth once daily. (Patient not taking: Reported on 04/09/2020 ) No current facility-administered medications for this visit. ALLERGIES: Penicillins PERSONAL HISTORY: SOCIAL HISTORY Social History Tobacco Use Smoking status: Never Smokeless tobacco: Never Vaping Use Vaping Use: Never used Substance Use Topics Alcohol use: No Drug use: No FAMILY HISTORY FAMILY HISTORY Problem Relation Age of Onset Diabetes Mother Diabetes Father Hypertension Father Diabetes Maternal Grandfather Heart Maternal Grandfather NE other (spherocytosis) Son REVIEW OF SYSTEMS: General: The patient denies fatigue, denies weight loss, denies weight gain, denies feeling hot, and denies feelings of cold. Eyes: The patient denies glaucoma, NOTES eye injury/surgery, wears glasses or contacts. Ear/Nose/Throat: The patient NOTES allergies, denies hayfever, denies ear infections, and denies bloody noses. Cardiovascular: The patient denies chest pain, denies heart disease, NOTES high blood pressure,denies cardiac stent, denies prior heart attack, denies irregular heart beat, denies high cholesterol, denies poor circulation, denies heart failure, other cardiac issues, denies claudication, denies cold feet, denies peripheral arterial stent. Respiratory: The patient denies tuberculosis, denies pneumonia, denies frequent cough, denies pulmonary embolism, NOTES shortness of breath, and denies coughing up blood. Gastrointestinal: The patient denies difficulty swallowing, denies acid reflux, denies ulcers, denies vomiting, denies jaundice/hepatitis, NOTES gallbladder problems, denies black or tarry stools, denies hemorrhoids, denies bleeding from rectum, denies diverticulitis, denies constipation, denies diarrhea, denies loss of stool control, and denies hernias. Kidney/Bladder: The patient NOTES kidney stones, denies urine infections, and denies bloody urine. Skin: The patient denies a history of skin cancer, denies bleeding/changing moles, and denies a history of skin rash. Neurologic: The patient denies a history of epilepsy/convulsions, denies headaches, denies head/spinal injuries, and denies stroke/TIA. Psychiatric: The patient denies psychiatric medications, denies depression, and denies voices, denies substance abuse. Endocrine: The patient denies thyroid disorders, denies diabetes, and denies hormonal problems. Hematologic: The patient denies a history of bruising, denies bleeding, and denies anemia, denies blood clots. Infections: The patient denies a history of measles and mumps, denies rheumatic fever, and denies sexually transmitted diseases. Musculoskeletal: The patient denies back pain/injury, denies back problems, denies sciatica, denies knee/foot trouble, denies arthritis, or denies gout. When was patient's last Mammogram screening? 11/19/2021 Last Colonoscopy: none Leanna Camilo RN PHYSICAL EXAMINATION: General: The patient is 48 year old female, well nourished, well hydrated in no acute distress. The patient is oriented to time, place, and person. VITALS: Blood pressure 140/98, pulse 94, temperature 36.7 C (98 F), height 162.6 cm (5' 4), weight 108.8 kg (239 lb 12.8 oz), last menstrual period 07/13/2023, SpO2 97%. Body mass index is 41.16 kg/m . Head: Normal cephalic, atraumatic Eyes: pupils are equally round, sclera are clear/anicteric Neck is supple with no tracheal deviation Cardiac: normal heart sounds, regular Respiratory: Normal respiratory excursion and pattern. Abdominal exam: benign Extremities: no clubbing, cyanosis or edema. Neuro: non focal Psych: normal mood IMPRESSION: screening for colon cancer PLAN: I have discussed the above with the patient. I have offered colonoscopy , possible biopsies I have explained the procedure to the patient. I have counseled the patient as to the risks of the procedure, including but not limited to: infection, bleeding, injury to any intrabdominal organs such as liver/spleen, perforation of the GI tract, inability to complete the procedure, complications of anesthesia, etc. - the patient understands. I have explained to the patient the difference between IV conscious sedation and MAC anesthesia - and I have offered either, according to the patient's wishes. I have explained that with IV conscious sedation there is no anesthesia provider available and therefore there is a limitation of the amount of IV medications that can be given and that the patient may wake up in the middle of the procedure and/or experience pain/discomfort during the procedure. Further discussion was done and the patient was given the opportunity to ask questions and all questions were answered. The patient chooses IV conscious sedation. The patient wishes to proceed. I have answered all questions to the patient s satisfaction and the patient has no further questions. Diagnoses: (Z12.11) Screening for colon cancer (Z68.41) BMI 40.0-44.9, adult (HCC) T [facility] 10-09-2023 History and physical note UPDATED PROCEDURAL SEDATION HISTORY AND PHYSICAL EXAMINATION SERVICE DATE: 10/09/2023 SERVICE TIME: 11:38 PHYSICAL EXAM MUST BE COMPLETED ON ADMISSION PROCEDURE: colonoscopy, possible bpsies Procedure Indications: screening for colon ancer The History and Physical (completed in the past 30 days) has been reviewed and the patient has been examined. The contents accurately reflect the patient's condition with the following additions or revisions since the H&P was completed. ASA Class: ASA Class:: Patient with severe systemic disease Examination indicates no changes. AIRWAY: Airway Visualization of Uvula: Yes Mouth opening greater than 2 fingerbreadths: Yes Neck Full Range of Motion: Yes LUNGS: Lungs clear to auscultation CARDIAC: Regular rhythm,Regular rate Provisional Diagnosis/Treatment Plan: colonoscopy, possible biopsies SEDATION GOAL: Moderate This H&P can be found in the Electronic Medical Record. SIGNATURE: Jeaneth Caputo MD PATIENT NAME: Brooke Nelson DATE: October 09, 2023 TIME: 11:40 AM Source Note - Jenaeth Caputo MD - 10/09/2023 12:00 PM EDT HISTORY AND PHYSICAL Brooke Nelson 1975 REFERRING PHYSICIAN: Duane Rowland MD CHIEF COMPLAINT: Consult (colonoscopy) HPI: The patient is a 48 year old female referred for endoscopy. This is for screening for colon cancer The patient denies blood in stools, denies abdominal pain, and denies changes in bowel habits. The patient notes no colon cancer in immediate family. The patient has not had previous colonoscopy. Her past medical history includes: CAROLINE and BMI 41 and HTN. (ASA III) PAST MEDICAL HISTORY PAST MEDICAL HISTORY Diagnosis Date Essential hypertension, benign After pregnancies Kidney stone Obesity CAROLINE (obstructive sleep apnea) Post-cholecystectomy syndrome PAST SURGICAL HISTORY PAST SURGICAL HISTORY Procedure Laterality Date CHOLECYSTECTOMY 12/2015 NEPHROLITHOTOMY REMOVAL STAGE 1 03/2016 blasted PAST SURGICAL HISTORY OF 1985 Eye surgery as a child for hole in retina PAST SURGICAL HISTORY OF [place] tooth extraction TONSILLECTOMY & ADENOIDECTOMY <AGE 10 CURRENT MEDICATIONS Current Outpatient Medications Medication Sig diphenhydramine HCl (BENADRYL ALLERGY ORAL) Take by mouth. predniSONE (DELTASONE) 10 mg tablet Take 4 tabs daily x 3 days, then 3 tabs x 3 days, 2 tabs x 3 days, then 1 tab x3 days with food. cholestyramine-sucrose (QUESTRAN) 4 gram powder Take 4 g by mouth once daily. lisinopril (ZESTRIL) 20 mg tablet Take 1 tablet by mouth once daily. loratadine (CLARITIN) 10 mg tablet Take 1 tablet by mouth once daily. fluticasone (FLONASE) 50 mcg/actuation nasal spray Use 2 Sprays in each nostril once daily. Rinse mouth after use. CPAP (Provide supplies) AutoPAP [id number], mask (pt pref), chin strap, heated tubing & humidity, filters. Lifetime supplies. CAROLINE: G47.33. Provide 30 day download to [phone] [facility] (BLOOD PRESSURE CUFF) misc 1 Each once daily. 1 Large Cuff. ICD-10: I10.0 Hypertension Blood Pressure Test Kit-Large kit 1 Each once daily. Blood Pressure Test Kit-Wrist (BLOOD PRESSURE UNIT) kit 1 Each once daily. CPAP Initiate Auto PAP @ 5-20 cm of water with humidification. Mask (per patient preference) optional chin strap (if indicated) , filters, tubing, humidifier and lifetime supplies. Cholecalciferol, Vitamin D3, 1,000 unit cap Take 1 capsule by mouth once daily. (Patient not taking: Reported on 04/09/2020 ) No current facility-administered medications for this visit. ALLERGIES: Penicillins PERSONAL HISTORY: SOCIAL HISTORY Social History Tobacco Use Smoking status: Never Smokeless tobacco: Never Vaping Use Vaping Use: Never used Substance Use Topics Alcohol use: No Drug use: No FAMILY HISTORY FAMILY HISTORY Problem Relation Age of Onset Diabetes Mother Diabetes Father Hypertension Father Diabetes Maternal Grandfather Heart Maternal Grandfather NE other (spherocytosis) Son REVIEW OF SYSTEMS: General: The patient denies fatigue, denies weight loss, denies weight gain, denies feeling hot, and denies feelings of cold. Eyes: The patient denies glaucoma, NOTES eye injury/surgery, wears glasses or contacts. Ear/Nose/Throat: The patient NOTES allergies, denies hayfever, denies ear infections, and denies bloody noses. Cardiovascular: The patient denies chest pain, denies heart disease, NOTES high blood pressure,denies cardiac stent, denies prior heart attack, denies irregular heart beat, denies high cholesterol, denies poor circulation, denies heart failure, other cardiac issues, denies claudication, denies cold feet, denies peripheral arterial stent. Respiratory: The patient denies tuberculosis, denies pneumonia, denies frequent cough, denies pulmonary embolism, NOTES shortness of breath, and denies coughing up blood. Gastrointestinal: The patient denies difficulty swallowing, denies acid reflux, denies ulcers, denies vomiting, denies jaundice/hepatitis, NOTES gallbladder problems, denies black or tarry stools, denies hemorrhoids, denies bleeding from rectum, denies diverticulitis, denies constipation, denies diarrhea, denies loss of stool control, and denies hernias. Kidney/Bladder: The patient NOTES kidney stones, denies urine infections, and denies bloody urine. Skin: The patient denies a history of skin cancer, denies bleeding/changing moles, and denies a history of skin rash. Neurologic: The patient denies a history of epilepsy/convulsions, denies headaches, denies head/spinal injuries, and denies stroke/TIA. Psychiatric: The patient denies psychiatric medications, denies depression, and denies voices, denies substance abuse. Endocrine: The patient denies thyroid disorders, denies diabetes, and denies hormonal problems. Hematologic: The patient denies a history of bruising, denies bleeding, and denies anemia, denies blood clots. Infections: The patient denies a history of measles and mumps, denies rheumatic fever, and denies sexually transmitted diseases. Musculoskeletal: The patient denies back pain/injury, denies back problems, denies sciatica, denies knee/foot trouble, denies arthritis, or denies gout. When was patient's last Mammogram screening? 11/19/2021 Last Colonoscopy: none Leanna Camilo RN PHYSICAL EXAMINATION: General: The patient is 48 year old female, well nourished, well hydrated in no acute distress. The patient is oriented to time, place, and person. VITALS: Blood pressure 140/98, pulse 94, temperature 36.7 C (98 F), height 162.6 cm (5' 4), weight 108.8 kg (239 lb 12.8 oz), last menstrual period 07/13/2023, SpO2 97%. Body mass index is 41.16 kg/m . Head: Normal cephalic, atraumatic Eyes: pupils are equally round, sclera are clear/anicteric Neck is supple with no tracheal deviation Cardiac: normal heart sounds, regular Respiratory: Normal respiratory excursion and pattern. Abdominal exam: benign Extremities: no clubbing, cyanosis or edema. Neuro: non focal Psych: normal mood IMPRESSION: screening for colon cancer PLAN: I have discussed the above with the patient. I have offered colonoscopy , possible biopsies I have explained the procedure to the patient. I have counseled the patient as to the risks of the procedure, including but not limited to: infection, bleeding, injury to any intrabdominal organs such as liver/spleen, perforation of the GI tract, inability to complete the procedure, complications of anesthesia, etc. - the patient understands. I have explained to the patient the difference between IV conscious sedation and MAC anesthesia - and I have offered either, according to the patient's wishes. I have explained that with IV conscious sedation there is no anesthesia provider available and therefore there is a limitation of the amount of IV medications that can be given and that the patient may wake up in the middle of the procedure and/or experience pain/discomfort during the procedure. Further discussion was done and the patient was given the opportunity to ask questions and all questions were answered. The patient chooses IV conscious sedation. The patient wishes to proceed. I have answered all questions to the patient s satisfaction and the patient has no further questions. Diagnoses: (Z12.11) Screening for colon cancer (Z68.41) BMI 40.0-44.9, adult (HCC) HISTORY AND PHYSICAL Brooke Nelson 1975 REFERRING PHYSICIAN: Duane Rowland MD CHIEF COMPLAINT: Consult (colonoscopy) HPI: The patient is a 48 year old female referred for endoscopy. This is for screening for colon cancer The patient denies blood in stools, denies abdominal pain, and denies changes in bowel habits. The patient notes no colon cancer in immediate family. The patient has not had previous colonoscopy. Her past medical history includes: CAROLINE and BMI 41 and HTN. (ASA III) PAST MEDICAL HISTORY PAST MEDICAL HISTORY Diagnosis Date Essential hypertension, benign After pregnancies Kidney stone Obesity CAROLINE (obstructive sleep apnea) Post-cholecystectomy syndrome PAST SURGICAL HISTORY PAST SURGICAL HISTORY Procedure Laterality Date CHOLECYSTECTOMY 12/2015 NEPHROLITHOTOMY REMOVAL STAGE 1 03/2016 blasted PAST SURGICAL HISTORY OF 1985 Eye surgery as a child for hole in retina PAST SURGICAL HISTORY OF [place] tooth extraction TONSILLECTOMY & ADENOIDECTOMY <AGE 10 CURRENT MEDICATIONS Current Outpatient Medications Medication Sig diphenhydramine HCl (BENADRYL ALLERGY ORAL) Take by mouth. predniSONE (DELTASONE) 10 mg tablet Take 4 tabs daily x 3 days, then 3 tabs x 3 days, 2 tabs x 3 days, then 1 tab x3 days with food. cholestyramine-sucrose (QUESTRAN) 4 gram powder Take 4 g by mouth once daily. lisinopril (ZESTRIL) 20 mg tablet Take 1 tablet by mouth once daily. loratadine (CLARITIN) 10 mg tablet Take 1 tablet by mouth once daily. fluticasone (FLONASE) 50 mcg/actuation nasal spray Use 2 Sprays in each nostril once daily. Rinse mouth after use. CPAP (Provide supplies) AutoPAP [id number], mask (pt pref), chin strap, heated tubing & humidity, filters. Lifetime supplies. CAROLINE: G47.33. Provide 30 day download to [phone] Miscellaneous Medical Supply (BLOOD PRESSURE CUFF) [facility] [place] Each once daily. 1 Large Cuff. ICD-10: I10.0 Hypertension Blood Pressure Test Kit-Large kit 1 Each once daily. Blood Pressure Test Kit-Wrist (BLOOD PRESSURE UNIT) kit 1 Each once daily. CPAP Initiate Auto PAP @ 5-20 cm of water with humidification. Mask (per patient preference) optional chin strap (if indicated) , filters, tubing, humidifier and lifetime supplies. Cholecalciferol, Vitamin D3, 1,000 unit cap Take 1 capsule by mouth once daily. (Patient not taking: Reported on 04/09/2020 ) No current facility-administered medications for this visit. ALLERGIES: Penicillins PERSONAL HISTORY: SOCIAL HISTORY Social History Tobacco Use Smoking status: Never Smokeless tobacco: Never Vaping Use Vaping Use: Never used Substance Use Topics Alcohol use: No Drug use: No FAMILY HISTORY FAMILY HISTORY Problem Relation Age of Onset Diabetes Mother Diabetes Father Hypertension Father Diabetes Maternal Grandfather Heart Maternal Grandfather NE other (spherocytosis) Son REVIEW OF SYSTEMS: General: The patient denies fatigue, denies weight loss, denies weight gain, denies feeling hot, and denies feelings of cold. Eyes: The patient denies glaucoma, NOTES eye injury/surgery, wears glasses or contacts. Ear/Nose/Throat: The patient NOTES allergies, denies hayfever, denies ear infections, and denies bloody noses. Cardiovascular: The patient denies chest pain, denies heart disease, NOTES high blood pressure,denies cardiac stent, denies prior heart attack, denies irregular heart beat, denies high cholesterol, denies poor circulation, denies heart failure, other cardiac issues, denies claudication, denies cold feet, denies peripheral arterial stent. Respiratory: The patient denies tuberculosis, denies pneumonia, denies frequent cough, denies pulmonary embolism, NOTES shortness of breath, and denies coughing up blood. Gastrointestinal: The patient denies difficulty swallowing, denies acid reflux, denies ulcers, denies vomiting, denies jaundice/hepatitis, NOTES gallbladder problems, denies black or tarry stools, denies hemorrhoids, denies bleeding from rectum, denies diverticulitis, denies constipation, denies diarrhea, denies loss of stool control, and denies hernias. Kidney/Bladder: The patient NOTES kidney stones, denies urine infections, and denies bloody urine. Skin: The patient denies a history of skin cancer, denies bleeding/changing moles, and denies a history of skin rash. Neurologic: The patient denies a history of epilepsy/convulsions, denies headaches, denies head/spinal injuries, and denies stroke/TIA. Psychiatric: The patient denies psychiatric medications, denies depression, and denies voices, denies substance abuse. Endocrine: The patient denies thyroid disorders, denies diabetes, and denies hormonal problems. Hematologic: The patient denies a history of bruising, denies bleeding, and denies anemia, denies blood clots. Infections: The patient denies a history of measles and mumps, denies rheumatic fever, and denies sexually transmitted diseases. Musculoskeletal: The patient denies back pain/injury, denies back problems, denies sciatica, denies knee/foot trouble, denies arthritis, or denies gout. When was patient's last Mammogram screening? 11/19/2021 Last Colonoscopy: none Leanna Camilo RN PHYSICAL EXAMINATION: General: The patient is 48 year old female, well nourished, well hydrated in no acute distress. The patient is oriented to time, place, and person. VITALS: Blood pressure 140/98, pulse 94, temperature 36.7 C (98 F), height 162.6 cm (5' 4), weight 108.8 kg (239 lb 12.8 oz), last menstrual period 07/13/2023, SpO2 97%. Body mass index is 41.16 kg/m . Head: Normal cephalic, atraumatic Eyes: pupils are equally round, sclera are clear/anicteric Neck is supple with no tracheal deviation Cardiac: normal heart sounds, regular Respiratory: Normal respiratory excursion and pattern. Abdominal exam: benign Extremities: no clubbing, cyanosis or edema. Neuro: non focal Psych: normal mood IMPRESSION: screening for colon cancer PLAN: I have discussed the above with the patient. I have offered colonoscopy , possible biopsies I have explained the procedure to the patient. I have counseled the patient as to the risks of the procedure, including but not limited to: infection, bleeding, injury to any intrabdominal organs such as liver/spleen, perforation of the GI tract, inability to complete the procedure, complications of anesthesia, etc. - the patient understands. I have explained to the patient the difference between IV conscious sedation and MAC anesthesia - and I have offered either, according to the patient's wishes. I have explained that with IV conscious sedation there is no anesthesia provider available and therefore there is a limitation of the amount of IV medications that can be given and that the patient may wake up in the middle of the procedure and/or experience pain/discomfort during the procedure. Further discussion was done and the patient was given the opportunity to ask questions and all questions were answered. The patient chooses IV conscious sedation. The patient wishes to proceed. I have answered all questions to the patient s satisfaction and the patient has no further questions. Diagnoses: (Z12.11) Screening for colon cancer (Z68.41) BMI 40.0-44.9, adult (HCC) documented in this encounter [facility] 10-06-2023 Note Formatting of this n ote might be different from the original. October 07, 2023 PID: [id number] Brooke Nelson [address] [place] [address] Dear Ms. Nelson, We are pleased to inform you that the results of your recent breast imaging exam on 10/05/2023 are normal. Early detection of cancer is very important. We also understand recommendations regarding breast cancer screening are controversial. Please discuss with your primary care provider which strategy is best for you and whether a mammogram is right for you. Your imaging studies and report will be kept on file at [facility] as part of your permanent medical record and are available for your continuing care. Thank you for allowing us to help in meeting your health care needs. Sincerely, Dr. Ibrahim Interpreting Radiologist [facility] (Normal over 40) [facility] 10-06-2023 Miscellaneous Notes October 07, 2023 PID: [id number] Brooke Nelson [address] [place] [address] Dear Ms. Nelson, We are pleased to inform you that the results of your recent breast imaging exam on 10/05/2023 are normal. Early detection of cancer is very important. We also understand recommendations regarding breast cancer screening are controversial. Please discuss with your primary care provider which strategy is best for you and whether a mammogram is right for you. Your imaging studies and report will be kept on file at [facility] as part of your permanent medical record and are available for your continuing care. Thank you for allowing us to help in meeting your health care needs. Sincerely, Dr. Ibrahim Interpreting Radiologist [facility] (Normal over 40) documented in this encounter [facility] 10-05-2023 History of Presen t illness Narrative Radiology Service Progress Note PATIENT NAME: Brooke Nelson DATE OF SERVICE: October 05, 2023 TIME: 1:15 PM PATIENT IDENTITY VERIFICATION COMPLETED USING TWO (2) IDENTIFIERS: Name and Date of confirmed by patient verbally. FALL SCREENING: Has the patient had 2 falls in the last year or 1 fall with injury or currently using an Ambulatory Assistive Device (Walker, Cane, Wheelchair, Crutches, etc.)? No PATIENT GENDER DATA: Female. status: : No status: NO. PATIENT RELEVANT IMPLANT DATA REVIEWED: Not Applicable PATIENT PRESENTS WITH AN IMPLANTABLE OR ATTACHED GRADES 1 THRU 6 HOME TEACHER: No RADIOLOGY DEPARTMENT: Mammography PERIPHERAL IV DATA: Not applicable SIGNED BY: Mary Chicas October 05, 2023 1:15 PM documented in this encounter [facility] 09-21-2023 History of Presen t illness Narrative Chief Complaint Patient presents with: poison tiffanie HPI Brooke Nelson is a 48 year old female who presents here today for poison tiffanie. Pt c/o poison tiffanie that she has had 2 weeks now. She has been using Benadryl for her itching and Calamine lotion. She states she saw Kristie Podlogar last Thursday and started on 12 day taper of Prednisone. She feels it is better, itching is gradually improving Called in with swelling of lips, determined that this was from using clear calamine lotion. Past medical history, appointments, medications, allergies reviewed. Previous Medical History PAST MEDICAL HISTORY Diagnosis Date Essential hypertension, benign After pregnancies Kidney stone Obesity CAROLINE (obstructive sleep apnea) Post-cholecystectomy syndrome Previous Surgical History PAST SURGICAL HISTORY Procedure Laterality Date CHOLECYSTECTOMY 12/2015 NEPHROLITHOTOMY REMOVAL STAGE 1 03/2016 blasted PAST SURGICAL HISTORY OF 1985 Eye surgery as a child for hole in retina PAST SURGICAL HISTORY OF [place] tooth extraction TONSILLECTOMY & ADENOIDECTOMY <AGE 10 Family History FAMILY HISTORY Problem Relation Age of Onset Diabetes Mother Diabetes Father Hypertension Father Diabetes Maternal Grandfather Heart Maternal Grandfather NE other (spherocytosis) Son Patient Allergies ALLERGIES Allergen Reactions Penicillins Rash CHILDHOOD REACTION Current Medications Current Outpatient Medications on File Prior to Visit Medication Sig predniSONE (DELTASONE) 10 mg tablet Take 4 tabs daily x 3 days, then 3 tabs x 3 days, 2 tabs x 3 days, then 1 tab x3 days with food. cholestyramine-sucrose (QUESTRAN) 4 gram powder Take 4 g by mouth once daily. lisinopril (ZESTRIL) 20 mg tablet Take 1 tablet by mouth once daily. loratadine (CLARITIN) 10 mg tablet Take 1 tablet by mouth once daily. fluticasone (FLONASE) 50 mcg/actuation nasal spray Use 2 Sprays in each nostril once daily. Rinse mouth after use. CPAP (Provide supplies) AutoPAP [id number], mask (pt pref), chin strap, heated tubing & humidity, filters. Lifetime supplies. CAROLINE: G47.33. Provide 30 day download to [phone] Miscellaneous Medical Supply (BLOOD PRESSURE CUFF) mis 1 Each once daily. 1 Large Cuff. ICD-10: I10.0 Hypertension Blood Pressure Test Kit-Large kit 1 Each once daily. Blood Pressure Test Kit-Wrist (BLOOD PRESSURE UNIT) kit 1 Each once daily. Cholecalciferol, Vitamin D3, 1,000 unit cap Take 1 capsule by mouth once daily. (Patient not taking: Reported on 04/09/2020 ) CPAP Initiate Auto PAP @ 5-20 cm of water with humidification. Mask (per patient preference) optional chin strap (if indicated) , filters, tubing, humidifier and lifetime supplies. No current facility-administered medications on file prior to visit. Social History Social History Tobacco Use Smoking status: Never Smokeless tobacco: Never Vaping Use Vaping Use: Never used Substance Use Topics Alcohol use: No Drug use: No EXAM: BP 124/78 Pulse 78 Resp 16 Wt 108.8 kg (239 lb 12.8 oz) LMP 07/13/2023 (Approximate) BMI 41.16 kg/m General Appearance: Well appearing, alert, in no acute distress, well-hydrated, well nourished.. Skin: resolving poison tiffanie dermatitis on arms, legs, no weekping. Health Maintenance List Colorectal Cancer Screening Never done BP Controlled (<130/80) due on 05/09/2020 Cervical Cancer Screening due on 08/21/2021 Mammogram Screening due on 11/19/2022 Shingrix Vaccine(1 of 2) due on 08/06/2024 Covid-19 Vaccine( - season) due on 08/06/2024 Influenza Vaccine(Season Ended) due on 12/13/2023 Annual PCP Team Chronic Disease Visit due on 09/15/2024 Diabetes Screening due on 10/17/2024 DTaP,Tdap,Td Vaccine(2 - Td or Tdap) due on 12/26/2025 Lipid Screening due on 10/17/2026 Hepatitis B Vaccine Completed Behavioral Health Screening Completed Hepatitis C Screening Completed HIV Screening Discontinued Data reviewed none ASSESSMENT/PLAN: 1. Poison tiffanie - ICD9: 692.6, ICD10: L23.7 - improving; call if symptoms flare - discussed skin care of rash - follow up if symptoms persist or worsen. Follow up prn I agree with the Chief Complaint, ROS, and Past Histories independently gathered by the clinical it application support analyst and the remaining scribed note accurately describes my personal service to the patient. Medical Decision Making: Problems: Low: Acute, uncomplicated illness or injury Risk: Moderate: Drug management Medical Decision Making Level: 3 - Low Duane Rowland MD The documentation for this note was completed by Ayala Mcdonald MA acting as scribe for Duane Rowland MD. September 21, 2023 6:21 PM. Ayala Mcdonald MA documented in this encounter [facility] 09-21-2023 Instructions Jeaneth aCputo MD - 09/21/2023 9:12 AM EDT Images from the original note were not included. Bowel Preparation Instructions for: Golytely, Nulytely, Trilyte or Colyte (polyethylene glycol 3350 and electrolytes) IF YOU DO NOT FOLLOW THESE DIRECTIONS, YOUR COLONOSCOPY WILL BE CANCELLED. Wall Instructions: Your bowel must be empty so that your doctor can clearly view your colon. Follow all of the instructions in this handout EXACTLY as they are written. Do NOT eat any solid food the ENTIRE day before your colonoscopy. Drink only clear liquids. Buy your bowel preparation at least 5 days before your colonoscopy. TRANSPORTATION on the Day of Your Exam A responsible person MUST be present with you at Check In prior to your colonoscopy and REMAIN in the endoscopy area until you are discharged. You are NOT ALLOWED to drive, take a taxi or bus, or leave the Endoscopy Center ALONE. If you do not have a responsible parts delivery driver (family member or friend) with you to take you home, your exam cannot be done with sedation and will be cancelled. Please bring a list of all of your current medications, including any Over-the Counter medications with you. Medications If you take insulin, diabetic medications or blood thinners such as Coumadin (warfarin), Plavix (clopidogrel), Ticlid (ticlopidine hydrochloride), Agrylin (anagrelide), Xarelto (Rivaroxaban), Pradaxa (Dabigatran), Eliquis (Apixaban), and Effient (Prasugrel). You MUST call the doctors who orders those medicines for instructions on altering the dosage before your colonoscopy. All other medications should be taken the day of the exam with a sip of water including ASPIRIN. Five (5) Days Before Your Colonoscopy Do NOT take medicines that stop diarrhea - such as Imodium, Kaopectate, or Pepto Bismol. Do NOT take fiber supplements - such as Metamucil, Citrucel, or Perdiem. Do NOT take products that contain iron - such as multi-vitamins (the label lists what is in the products). Do NOT take Vitamin E. Buy the prescription bowel preparation solution at your local pharmacy or [facility]. 03/2019 Bowel Preparation Instructions for: Golytely, Nulytely, Trilyte or Colyte (polyethylene glycol 3350 and electrolytes) Three (3) Days Before Your Colonoscopy Do NOT eat high-fiber foods - such as popcorn, beans, seeds (flax, sunflower, quinoa), multigrain bread, nuts, salad/vegetables, or fresh and dried fruit. One (1) Day Before Your Colonoscopy Only drink clear liquids the ENTIRE DAY before your colonoscopy. Do NOT eat any solid foods. Drink at least 8 ounces of clear liquids every hour after waking up. The clear liquids you can drink include: Clear Liquid (NO RED LIQUIDS) DO NOT DRINK Gatorade, Pedialyte or Powerade Clear broth or bouillon Coffee or tea (no milk or non-dairy creamer) Carbonated and non-carbonated soft drinks Nicholas-Aid or other fruit flavored drinks Strained fruit juices (no pulp) Jell-O, popsicles, hard candy Water Alcohol Milk or non-dairy creamers Noodles or vegetables in soup Juice with pulp Liquid you cannot see through Do not use tobacco/vaping products The bowel preparation solution will be consumed in two parts. Mix the solution the evening before your colonoscopy and refrigerate before drinking. You may add the flavor pack that came with the bowel preparation. Do NOT add ice, sugar or any other flavorings to the solution. Part 1 At 6:00 PM - Evening before your colonoscopy Drink an 8-oz glass of bowel preparation every 10 minutes for a total of 8 glasses. You may continue to drink clear liquids until midnight. Part 2 On the day of your colonoscopy you may drink clear liquids up to (three) 3 hours before your procedure. 4 1/2 hours before your colonoscopy Drink an 8-oz glass of bowel preparation every 10 minutes for a total of 8 glasses. Fifteen (15) minutes later, drink an 8-oz glass of clear liquids every 15 minutes for a total of 2 glasses. You may continue to drink clear liquids up to (three) 3 hours before your exam. 2 03/2019 documented in this encounter [facility] 09-21-2023 History of Presen t illness Narrative HISTORY AND PHYSICAL Brooke Nelson 1975 REFERRING PHYSICIAN: Duane Rowland MD CHIEF COMPLAINT: Consult (colonoscopy) HPI: The patient is a 48 year old female referred for endoscopy. This is for screening for colon cancer The patient denies blood in stools, denies abdominal pain, and denies changes in bowel habits. The patient notes no colon cancer in immediate family. The patient has not had previous colonoscopy. Her past medical history includes: CAROLINE and BMI 41 and HTN. (ASA III) PAST MEDICAL HISTORY Diagnosis Date Essential hypertension, benign After pregnancies Kidney stone Obesity CAROLINE (obstructive sleep apnea) Post-cholecystectomy syndrome PAST SURGICAL HISTORY Procedure Laterality Date CHOLECYSTECTOMY 12/2015 NEPHROLITHOTOMY REMOVAL STAGE 1 03/2016 blasted PAST SURGICAL HISTORY OF 1985 Eye surgery as a child for hole in retina PAST SURGICAL HISTORY OF [place] tooth extraction TONSILLECTOMY & ADENOIDECTOMY <AGE 10 Current Outpatient Medications Medication Sig diphenhydramine HCl (BENADRYL ALLERGY ORAL) Take by mouth. predniSONE (DELTASONE) 10 mg tablet Take 4 tabs daily x 3 days, then 3 tabs x 3 days, 2 tabs x 3 days, then 1 tab x3 days with food. cholestyramine-sucrose (QUESTRAN) 4 gram powder Take 4 g by mouth once daily. lisinopril (ZESTRIL) 20 mg tablet Take 1 tablet by mouth once daily. loratadine (CLARITIN) 10 mg tablet Take 1 tablet by mouth once daily. fluticasone (FLONASE) 50 mcg/actuation nasal spray Use 2 Sprays in each nostril once daily. Rinse mouth after use. CPAP (Provide supplies) AutoPAP [id number], mask (pt pref), chin strap, heated tubing & humidity, filters. Lifetime supplies. CAROLINE: G47.33. Provide 30 day download to [phone] Miscellaneous Medical Supply (BLOOD PRESSURE CUFF) misc 1 Each once daily. 1 Large Cuff. ICD-10: I10.0 Hypertension Blood Pressure Test Kit-Large kit 1 Each once daily. Blood Pressure Test Kit-Wrist (BLOOD PRESSURE UNIT) kit 1 Each once daily. CPAP Initiate Auto PAP @ 5-20 cm of water with humidification. Mask (per patient preference) optional chin strap (if indicated) , filters, tubing, humidifier and lifetime supplies. Cholecalciferol, Vitamin D3, 1,000 unit cap Take 1 capsule by mouth once daily. (Patient not taking: Reported on 04/09/2020 ) No current facility-administered medications for this visit. ALLERGIES: Penicillins PERSONAL HISTORY: Social History Tobacco Use Smoking status: Never Smokeless tobacco: Never Vaping Use Vaping Use: Never used Substance Use Topics Alcohol use: No Drug use: No FAMILY HISTORY Problem Relation Age of Onset Diabetes Mother Diabetes Father Hypertension Father Diabetes Maternal Grandfather Heart Maternal Grandfather NE other (spherocytosis) Son The review of systems data was entered by the nurse and reviewed by ks Nursing Notes: Leanna Camilo RN 09/21/2023 9:04 AM Addendum REVIEW OF SYSTEMS: General: The patient denies fatigue, denies weight loss, denies weight gain, denies feeling hot, and denies feelings of cold. Eyes: The patient denies glaucoma, NOTES eye injury/surgery, wears glasses or contacts. Ear/Nose/Throat: The patient NOTES allergies, denies hayfever, denies ear infections, and denies bloody noses. Cardiovascular: The patient denies chest pain, denies heart disease, NOTES high blood pressure,denies cardiac stent, denies prior heart attack, denies irregular heart beat, denies high cholesterol, denies poor circulation, denies heart failure, other cardiac issues, denies claudication, denies cold feet, denies peripheral arterial stent. Respiratory: The patient denies tuberculosis, denies pneumonia, denies frequent cough, denies pulmonary embolism, NOTES shortness of breath, and denies coughing up blood. Gastrointestinal: The patient denies difficulty swallowing, denies acid reflux, denies ulcers, denies vomiting, denies jaundice/hepatitis, NOTES gallbladder problems, denies black or tarry stools, denies hemorrhoids, denies bleeding from rectum, denies diverticulitis, denies constipation, denies diarrhea, denies loss of stool control, and denies hernias. Kidney/Bladder: The patient NOTES kidney stones, denies urine infections, and denies bloody urine. Skin: The patient denies a history of skin cancer, denies bleeding/changing moles, and denies a history of skin rash. Neurologic: The patient denies a history of epilepsy/convulsions, denies headaches, denies head/spinal injuries, and denies stroke/TIA. Psychiatric: The patient denies psychiatric medications, denies depression, and denies voices, denies substance abuse. Endocrine: The patient denies thyroid disorders, denies diabetes, and denies hormonal problems. Hematologic: The patient denies a history of bruising, denies bleeding, and denies anemia, denies blood clots. Infections: The patient denies a history of measles and mumps, denies rheumatic fever, and denies sexually transmitted diseases. Musculoskeletal: The patient denies back pain/injury, denies back problems, denies sciatica, denies knee/foot trouble, denies arthritis, or denies gout. When was patient's last Mammogram screening? 11/19/2021 Last Colonoscopy: none Leanna Camilo RN PHYSICAL EXAMINATION: General: The patient is 48 year old female, well nourished, well hydrated in no acute distress. The patient is oriented to time, place, and person. VITALS: Blood pressure 140/98, pulse 94, temperature 36.7 C (98 F), height 162.6 cm (5' 4), weight 108.8 kg (239 lb 12.8 oz), last menstrual period 07/13/2023, SpO2 97%. Body mass index is 41.16 kg/m . Head: Normal cephalic, atraumatic Eyes: pupils are equally round, sclera are clear/anicteric Neck is supple with no tracheal deviation Cardiac: normal heart sounds, regular Respiratory: Normal respiratory excursion and pattern. Abdominal exam: benign Extremities: no clubbing, cyanosis or edema. Neuro: non focal Psych: normal mood Assessment IMPRESSION: screening for colon cancer PLAN: I have discussed the above with the patient. I have offered colonoscopy , possible biopsies I have explained the procedure to the patient. I have counseled the patient as to the risks of the procedure, including but not limited to: infection, bleeding, injury to any intrabdominal organs such as liver/spleen, perforation of the GI tract, inability to complete the procedure, complications of anesthesia, etc. - the patient understands. I have explained to the patient the difference between IV conscious sedation and MAC anesthesia - and I have offered either, according to the patient's wishes. I have explained that with IV conscious sedation there is no anesthesia provider available and therefore there is a limitation of the amount of IV medications that can be given and that the patient may wake up in the middle of the procedure and/or experience pain/discomfort during the procedure. Further discussion was done and the patient was given the opportunity to ask questions and all questions were answered. The patient chooses IV conscious sedation. The patient wishes to proceed. I have answered all questions to the patient s satisfaction and the patient has no further questions. My clinic staff has educated the patient as to the colon cleansing regimen and I have prescribed Golytely for the colon cleansing solution. The patient will be scheduled for the procedure at [facility]. Diagnoses: (Z12.11) Screening for colon cancer (Z68.41) BMI 40.0-44.9, adult (HCC) I have confirmed and edited as necessary, the PFSH and ROS obtained by others. Consultation requested by Dr. Duane Rowland for an opinion regarding patient's screening for colon cancer with review of her medical assessment and appropriateness for moderate conscious sedation. My final recommendations will be communicated back to the requesting physician by way of shared Medical record or letter to requesting physician via US mail. Medical Decision Making: Problems: Low: Stable chronic illness Risk: Moderate: Decision on minor surgery w/ risk factors Medical Decision Making Level: 3 - Low Jeaneth Caputo MD documented in this encounter [facility] 09-21-2023 Nurse Note REVIEW OF SYSTEMS: General: The patient denies fatigue, denies weight loss, denies weight gain, denies feeling hot, and denies feelings of cold. Eyes: The patient denies glaucoma, NOTES eye injury/surgery, wears glasses or contacts. Ear/Nose/Throat: The patient NOTES allergies, denies hayfever, denies ear infections, and denies bloody noses. Cardiovascular: The patient denies chest pain, denies heart disease, NOTES high blood pressure,denies cardiac stent, denies prior heart attack, denies irregular heart beat, denies high cholesterol, denies poor circulation, denies heart failure, other cardiac issues, denies claudication, denies cold feet, denies peripheral arterial stent. Respiratory: The patient denies tuberculosis, denies pneumonia, denies frequent cough, denies pulmonary embolism, NOTES shortness of breath, and denies coughing up blood. Gastrointestinal: The patient denies difficulty swallowing, denies acid reflux, denies ulcers, denies vomiting, denies jaundice/hepatitis, NOTES gallbladder problems, denies black or tarry stools, denies hemorrhoids, denies bleeding from rectum, denies diverticulitis, denies constipation, denies diarrhea, denies loss of stool control, and denies hernias. Kidney/Bladder: The patient NOTES kidney stones, denies urine infections, and denies bloody urine. Skin: The patient denies a history of skin cancer, denies bleeding/changing moles, and denies a history of skin rash. Neurologic: The patient denies a history of epilepsy/convulsions, denies headaches, denies head/spinal injuries, and denies stroke/TIA. Psychiatric: The patient denies psychiatric medications, denies depression, and denies voices, denies substance abuse. Endocrine: The patient denies thyroid disorders, denies diabetes, and denies hormonal problems. Hematologic: The patient denies a history of bruising, denies bleeding, and denies anemia, denies blood clots. Infections: The patient denies a history of measles and mumps, denies rheumatic fever, and denies sexually transmitted diseases. Musculoskeletal: The patient denies back pain/injury, denies back problems, denies sciatica, denies knee/foot trouble, denies arthritis, or denies gout. When was patient's last Mammogram screening? 11/19/2021 Last Colonoscopy: none Leanna Camilo RN [facility] 09-21-2023 Nurse Note REVIEW OF SYSTEMS: General: The patient denies fatigue, denies weight loss, denies weight gain, denies feeling hot, and denies feelings of cold. Eyes: The patient denies glaucoma, NOTES eye injury/surgery, wears glasses or contacts. Ear/Nose/Throat: The patient NOTES allergies, denies hayfever, denies ear infections, and denies bloody noses. Cardiovascular: The patient denies chest pain, denies heart disease, NOTES high blood pressure,denies cardiac stent, denies prior heart attack, denies irregular heart beat, denies high cholesterol, denies poor circulation, denies heart failure, other cardiac issues, denies claudication, denies cold feet, denies peripheral arterial stent. Respiratory: The patient denies tuberculosis, denies pneumonia, denies frequent cough, denies pulmonary embolism, NOTES shortness of breath, and denies coughing up blood. Gastrointestinal: The patient denies difficulty swallowing, denies acid reflux, denies ulcers, denies vomiting, denies jaundice/hepatitis, NOTES gallbladder problems, denies black or tarry stools, denies hemorrhoids, denies bleeding from rectum, denies diverticulitis, denies constipation, denies diarrhea, denies loss of stool control, and denies hernias. Kidney/Bladder: The patient NOTES kidney stones, denies urine infections, and denies bloody urine. Skin: The patient denies a history of skin cancer, denies bleeding/changing moles, and denies a history of skin rash. Neurologic: The patient denies a history of epilepsy/convulsions, denies headaches, denies head/spinal injuries, and denies stroke/TIA. Psychiatric: The patient denies psychiatric medications, denies depression, and denies voices, denies substance abuse. Endocrine: The patient denies thyroid disorders, denies diabetes, and denies hormonal problems. Hematologic: The patient denies a history of bruising, denies bleeding, and denies anemia, denies blood clots. Infections: The patient denies a history of measles and mumps, denies rheumatic fever, and denies sexually transmitted diseases. Musculoskeletal: The patient denies back pain/injury, denies back problems, denies sciatica, denies knee/foot trouble, denies arthritis, or denies gout. When was patient's last Mammogram screening? 11/19/2021 Last Colonoscopy: none Leanna Camilo RN documented in this encounter [facility] 09-19-2023 History of Presen t illness Narrative Virtualist Progress Note Triage Call I have communicated my name and active licensure. The patient's identity and physical location were verified at the time of this visit. Either the patient or their legal outside sales account representative has been informed of the risks and benefits of -- and alternatives to -- treatment through a remote evaluation and consents to proceed with the evaluation remotely. Triage source: Triage Call (Nurse Food Vendor, [facility] - [facility] Triage, [facility] Triage, [facility] Phone Triage) Was patient downgraded (i.e. disposition other than go to the ED was advised)? Yes Mode of contact: Audio Only Visit HPI: 48 yo female called [facility] to report: poison tiffanie developed after weeding seen 09/16/23 and started prednisone tapering dose called in for ?allergic reaction to prednisone lips taras numb, coughing a little, doesn't feel right since about 10 am took benadry today not SOB, able to swallow no swelling lips, mouth or throat prednisone 40 last 3 days. did not take it yet today (30mg) Nurse Triage Disposition (If call is from Home Care, Home Care nurse triage, or an [facility], the disposition is Go to ED Now): Go to ED Now Virtualist Recommended Disposition: See Provider within 2 days To ED if she develops swelling of lips, tongue, throat Signed in as Primary Virtualist, Secondary Virtualist, or [facility] Telehealth provider: Secondary documented in this encounter [facility] 09-19-2023 Telephone encounter Note Reason for call; medication concern Outcome: Dr Guevara consulted and recommends pt continue Prednisone and see pcp on Thursday. If develops any tongue/lip swelling, trouble breathing or swallowing, pt should go to ER. Reason for Disposition Patient sounds very sick or weak to the triager Nursing judgement: upgraded so virtualist could be consulted. Answer Assessment - Initial Assessment Questions 1. SYMPTOM: Pt worried that she might be allergic to Prednisone. She is on a prednisone taper. She has not taken it yet today. Pt says her lips feel numb, she is coughing and it feels a little tight swallowing. Pt also feels a little nauseated. 2. ONSET: 2.5 hours 3. PAIN: Denies 4. CAUSE: unknown 5. OTHER SYMPTOMS: Pt has poison Tiffanie rash that is improving. She is taking Benadryl for itching. Protocols used: Mouth [id number] [facility] 09-19-2023 Miscellaneous Notes Reason for call; medication concern Outcome: Dr Guevara consulted and recommends pt continue Prednisone and see pcp on Thursday. If develops any tongue/lip swelling, trouble breathing or swallowing, pt should go to ER. Reason for Disposition Patient sounds very sick or weak to the triager Nursing judgement: upgraded so virtualist could be consulted. Answer Assessment - Initial Assessment Questions 1. SYMPTOM: Pt worried that she might be allergic to Prednisone. She is on a prednisone taper. She has not taken it yet today. Pt says her lips feel numb, she is coughing and it feels a little tight swallowing. Pt also feels a little nauseated. 2. ONSET: 2.5 hours 3. PAIN: Denies 4. CAUSE: unknown 5. OTHER SYMPTOMS: Pt has poison Tiffanie rash that is improving. She is taking Benadryl for itching. Protocols used: Mouth [id number] documented in this encounter [facility] 09-16-2023 History of Presen t illness Narrative 09/16/2023 Patient presents with: Poison Tiffanie SUBJECTIVE: This is a 48 year old that is here today for Above Complaints. Thinks she has posion tiffanie. Thursday noticed bumps to left leg, bilateral arms and chest. Areas are very itchy. 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 Using some cortisone cream with mild relief. PAST MEDICAL HISTORY Diagnosis Date Essential hypertension, benign After pregnancies ALLERGIES Penicillins MEDICATIONS Current Outpatient Medications Medication Sig cholestyramine-sucrose (QUESTRAN) 4 gram powder Take 4 g by mouth once daily. lisinopril (ZESTRIL) 20 mg tablet Take 1 tablet by mouth once daily. loratadine (CLARITIN) 10 mg tablet Take 1 tablet by mouth once daily. fluticasone (FLONASE) 50 mcg/actuation nasal spray Use 2 Sprays in each nostril once daily. Rinse mouth after use. CPAP (Provide supplies) AutoPAP [id number], mask (pt pref), chin strap, heated tubing & humidity, filters. Lifetime supplies. CAROLINE: G47.33. Provide 30 day download to [phone] Miscellaneous Medical Supply (BLOOD PRESSURE CUFF[place] [facility] [place] Each once daily. 1 Large Cuff. ICD-10: I10.0 Hypertension Blood Pressure Test Kit-Large kit 1 Each once daily. Blood Pressure Test Kit-Wrist (BLOOD PRESSURE UNIT) kit 1 Each once daily. Cholecalciferol, Vitamin D3, 1,000 unit cap Take 1 capsule by mouth once daily. (Patient not taking: Reported on 04/09/2020 ) CPAP Initiate Auto PAP @ 5-20 cm of water with humidification. Mask (per patient preference) optional chin strap (if indicated) , filters, tubing, humidifier and lifetime supplies. No current facility-administered medications for this visit. Medications and allergies reviewed by this provider. SOCIAL HISTORY Social History Tobacco Use Smoking status: Never Smokeless tobacco: Never Vaping Use Vaping Use: Never used Substance Use Topics Alcohol use: No Drug use: No REVIEW OF SYSTEMS All other reviewed and negative other than HPI. OBJECTIVE: BP 132/76 Pulse 93 Resp 16 Wt 107.7 kg (237 lb 6.4 oz) LMP 07/13/2023 (Approximate) SpO2 95% BMI 38.84 kg/m . Vital signs reviewed by this provider. APPEARANCE Well appearing, alert, in no acute distress, well-hydrated, well nourished. SKIN: Cluster of vesicles, some in linear formation, with some surrounding erythema to bilateral arms and left leg. Chest with a few scattered erythematous papules without surrounding erythema, excessive warmth or drainage Colorectal Cancer Screening Never done BP Controlled (<130/80) due on 05/09/2020 Pap Testing due on 08/21/2021 HPV Testing due on 08/21/2021 Mammogram Screening due on 11/19/2022 Shingrix Vaccine(1 of 2) due on 08/06/2024 Covid-19 Vaccine(3 - season) due on 08/06/2024 Influenza Vaccine(Season Ended) due on 12/13/2023 Annual PCP Team Chronic Disease Visit due on 08/06/2024 Diabetes Screening due on 10/17/2024 DTaP,Tdap,Td Vaccine(2 - Td or Tdap) due on 12/26/2025 Lipid Screening due on 10/17/2026 Hepatitis B Vaccine Completed Behavioral Health Screening Completed Hepatitis C Screening Completed HIV Screening Discontinued ASSESSMENT/PLAN: 1. Allergic contact dermatitis due to plants, except food - ICD9: 692.6, ICD10: L23.7 - Oral Steriod tx -Prednisone taper - Topical steriod tx with OTC 1% Hydrocortisone cream - Anti itch therapy of OTC 1% Hydrocortisone cream, Calomine lotion, and Oatmeal baths recommended prn - discussed skin care of rash - follow up if symptoms persist or worsen. - PREDNISONE 10 MG TABLET - follow-up if fails to improve Kristie Joshua APRN.CNP Prescription instructions reviewed with patient as applicable. Patient advised if symptoms do not improve or if symptoms worsen sooner, to contact their primary care physician. Potential red flag symptoms discussed with the patient. Reviewed appropriate action plan to take if red flag symptoms occur. Patient agreeable to treatment plan. Medical Decision Making: Problems: Low: Acute, uncomplicated illness or injury Risk: Moderate: Drug management Medical Decision Making Level: 3 - Low documented in this encounter [facility] 09-14-2023 Telephone encounter Note Patient calls to review at home care for mild poison tiffanie rash. Care advice reviewed. Patient to call back for worsening rash or if not improving to schedule appointment. Reason for Disposition Mild rash from poison tiffanie, oak or sumac Answer Assessment - Initial Assessment Questions 1. APPEARANCE of RASH: Started off looking like mosquito bites that have spread. Small red raised. 2. LOCATION:Arms/Legs 3. SIZE:Mosquito bite size and smaller. Patchy areas on arms /legs. 4. ONSET:2 days ago 5. ITCHING: - MILD - doesn't interfere with normal activities 6. EXPOSURE: Poison Tiffanie 7. PAST HISTORY: Minor rash Protocols used: Poison Tiffanie - [place] - [id number] [facility] 09-14-2023 Miscellaneous Notes Patient calls to review at home care for mild poison tiffanie rash. Care advice reviewed. Patient to call back for worsening rash or if not improving to schedule appointment. Reason for Disposition Mild rash from poison tiffanie, oak or sumac Answer Assessment - Initial Assessment Questions 1. APPEARANCE of RASH: Started off looking like mosquito bites that have spread. Small red raised. 2. LOCATION:Arms/Legs 3. SIZE:Mosquito bite size and smaller. Patchy areas on arms /legs. 4. ONSET:2 days ago 5. ITCHING: - MILD - doesn't interfere with normal activities 6. EXPOSURE: Poison Tiffanie 7. PAST HISTORY: Minor rash Protocols used: Poison Tiffanie - [place] - [id number] documented in this encounter [facility] 08-13-2023 Telephone encounter Note Pt called and is notified of providers message and instructions. Pt voices understanding. Em Roldan RN [facility] 08-13-2023 Miscellaneous Notes Pt called and is notified of providers message and instructions. Pt voices understanding. Em Roldan RN Can you please call the patient back and let her know that increasing blood pressure medication or starting the medication in general can cause some increased fatigue. In relation to the dizziness, she could try cutting the lisinopril in half and taking 1/2 tablet in the morning and a half tab in the evening. Her blood pressure readings that she reported are within normal limits. I would like her to stay well-hydrated. Please keep me updated how she is doing over the next couple days. Marilee Sanon APRN.AUNG Patient calls to report since increasing her lisinopril to 20 mg daily she has been having some episodes of feeling light-headed. First dose of increase was Thursday08/07/22. Noticed a little wooziness on Thursday. On Thursday, BP before medication was 135/91. About 3 hours after medicine is when she noticed feeling light-headed that gradually wears off. When first noticed feeling light-headed BP was 118/73. Yesterday felt ok. Today, BP before medication was 122/84. Again about 3 hours after medicine she noticed feeling light-headed. BP at that time was 115/62. She reports the light-headedness today is worse and lingering longer. She is more tired and feels overall like she is dragging. She is asking if provider feels like this is something she is going to just have to get used to or is maybe the lisinopril 20 mg too much? She also wanted to mention that she started the magnesium last night and she only took one pill even though the bottle said take 4 (she wasn't certain of the dose). Also needs refill of Questran sent to [facility]. Please review and advise, Shima Cyr RN documented in this encounter [facility] 08-12-2023 Telephone encounter Note Can you please call the patient back and let her know that increasing blood pressure medication or starting the medication in general can cause some increased fatigue. In relation to the dizziness, she could try cutting the lisinopril in half and taking 1/2 tablet in the morning and a half tab in the evening. Her blood pressure readings that she reported are within normal limits. I would like her to stay well-hydrated. Please keep me updated how she is doing over the next couple days. Marilee Sanon APRN.AUNG [facility] 08-12-2023 Telephone encounter Note Patient calls to report since increasing her lisinopril to 20 mg daily she has been having some episodes of feeling light-headed. First dose of increase was Thursday08/07/22. Noticed a little wooziness on Thursday. On Thursday, BP before medication was 135/91. About 3 hours after medicine is when she noticed feeling light-headed that gradually wears off. When first noticed feeling light-headed BP was 118/73. Yesterday felt ok. Today, BP before medication was 122/84. Again about 3 hours after medicine she noticed feeling light-headed. BP at that time was 115/62. She reports the light-headedness today is worse and lingering longer. She is more tired and feels overall like she is dragging. She is asking if provider feels like this is something she is going to just have to get used to or is maybe the lisinopril 20 mg too much? She also wanted to mention that she started the magnesium last night and she only took one pill even though the bottle said take 4 (she wasn't certain of the dose). Also needs refill of Questran sent to [facility]. Please review and advise, Shima Cyr RN [facility] 08-07-2023 History of Presen t illness Narrative This is a 48 year old female who presents today with: Patient presents with: Physical: Annual Wellness HISTORY OF PRESENT ILLNESS: Brooke Nelson is a 48 year old female. Patient presents with: Physical: Annual Wellness Wellness exam Diet: Eating well balanced, but mindful with certain foods. Exercise: Walking daily. Vision: Has appt soon. Wears contacts. Dental: Up to date. Sleep: 6 hours per night. No difficulty staying asleep but waking up every morning at 4 am. Mood: Increase stress and anxiety. Denies Si/Hi HTN: Taking lisinopril 10 mg daily. Checking BP randomly at home, 129-140's/70-90's. Can hear her heartbeat when laying down. No headaches. Denies chest pain, palpitations, dizziness, or edema. Postcholecystectomy syndrome: Taking Questran 4 g once daily. Medication has been very helpful. BM's once weekly with this medication. CAROLINE: Using CPAP Mammogram: Last completed in 2021 with Marco Antonio, normal. Past due at this time. Pap: Last Pap 2016, normal, HPV negative. Past due at this time. Menses: Regular, but flow changes month to month. Some months light other months heavy. Colonoscopy: Has never had completed. Vaccines: Denies wanting any vaccines at this time. PAST MEDICAL HISTORY: PAST MEDICAL HISTORY Diagnosis Date Essential hypertension, benign After pregnancies PAST SURGICAL HISTORY Procedure Laterality Date CHOLECYSTECTOMY 12/2015 NEPHROLITHOTOMY REMOVAL STAGE 1 03/2016 blasted PAST SURGICAL HISTORY OF 1985 Eye surgery as a child for hole in retina PAST SURGICAL HISTORY OF [place] tooth extraction TONSILLECTOMY & ADENOIDECTOMY <AGE 10 ALLERGIES Penicillins MEDICATIONS Current Outpatient Medications Medication Sig lisinopril (ZESTRIL) 10 mg tablet Take 1 tablet by mouth once daily. cholestyramine-sucrose (QUESTRAN) 4 gram powder Take 4 g by mouth once daily. loratadine (CLARITIN) 10 mg tablet Take 1 tablet by mouth once daily. fluticasone (FLONASE) 50 mcg/actuation nasal spray Use 2 Sprays in each nostril once daily. Rinse mouth after use. CPAP (Provide supplies) AutoPAP [id number], mask (pt pref), chin strap, heated tubing & humidity, filters. Lifetime supplies. CAROLINE: G47.33. Provide 30 day download to [phone] Miscellaneous Medical Supply (BLOOD PRESSURE CUFF[place] [facility] Each once daily. 1 Large Cuff. ICD-10: I10.0 Hypertension Blood Pressure Test Kit-Large kit 1 Each once daily. Blood Pressure Test Kit-Wrist (BLOOD PRESSURE UNIT) kit 1 Each once daily. Cholecalciferol, Vitamin D3, 1,000 unit cap Take 1 capsule by mouth once daily. (Patient not taking: Reported on 04/09/2020 ) CPAP Initiate Auto PAP @ 5-20 cm of water with humidification. Mask (per patient preference) optional chin strap (if indicated) , filters, tubing, humidifier and lifetime supplies. No current facility-administered medications for this visit. FAMILY HISTORY Problem Relation Age of Onset Diabetes Mother Diabetes Father Hypertension Father Diabetes Maternal Grandfather Heart Maternal Grandfather NE other (spherocytosis) Son Social History Tobacco Use Smoking status: Never Smokeless tobacco: Never Vaping Use Vaping Use: Never used Substance Use Topics Alcohol use: No Drug use: No REVIEW OF SYSTEMS GENERAL: No weight loss, malaise or fevers/chills HEENT: Negative for frequent or significant headaches, No changes in hearing or vision. NECK: Negative for lumps, goiter, pain and significant neck swelling RESPIRATORY: Negative for cough, hemoptysis, wheezing, dyspnea or shortness of breath CARDIOVASCULAR: Negative for chest pain, leg swelling, orthopnea, or palpitations GI: No nausea, vomiting, or diarrhea/constipation. No hematochezia/melena. No heartburn or reflux symptoms. : No history of dysuria, frequency or incontinence MUSCULOSKELETAL: Negative for joint pain or swelling. SKIN: Negative for lesions, rash, and itching ENDOCRINE: Negative for cold or heat intolerance, polyuria, polydipsia and goiter NEURO: No history of headaches, syncope, paralysis, seizures or tremors MOOD: + Increased stress EXAM: BP 158/92 Pulse 92 Resp 16 Wt 107.6 kg (237 lb 3.2 oz) LMP 07/13/2023 (Approximate) SpO2 95% BMI 38.81 kg/m PHYSICAL EXAM: General Appearance: Well appearing, alert, in no acute distress, well-hydrated, well nourished. Skin: Skin color, texture, turgor normal, no suspicious rashes or lesions. Head: Normocephalic, no masses, lesions, tenderness or abnormalities. Eyes: Anicteric sclera. Pupils are equally round and reactive to light. Extraocular movements are intact. Ears: External ears normal, canals clear. TMs pearly hopper. Neck: Supple, no adenopathy; thyroid symmetric, normal size, no bruits. Lungs: Lungs clear to auscultation. No wheezing, rhonchi, rales. Heart: RRR without murmur, gallop, or rubs. No ectopy. Abdomen: Normal abdominal exam, Abdomen soft, non-tender. Bowel sounds normal. No masses, organomegaly. Extremities: No deformities, edema, skin discoloration, clubbing or cyanosis. Good capillary refill. Musculoskeletal: No joint swelling, deformity, or tenderness. Peripheral Pulses: Normal, Capillary refill <2secs, strong peripheral pulses, Pulses palpable. Neurologic: Gait normal. Reflexes normal and symmetric. Sensation grossly intact.. Mood: Pleasant, engaged, good eye contact. ASSESSMENT/PLAN: 1. Wellness examination - ICD9: V70.0, ICD10: Z00.00 (primary diagnosis) - Counseled on healthy diet and regular exercise - Recommend vitamin containing 0.4 mg of folic acid - Colorectal cancer screening recommended - agrees to Colonoscopy - Mammogram ordered - exam recommended once yearly - Follow up for annual exam in one year - COMPREHENSIVE METABOLIC PANEL 2. Hypertension, unspecified type - ICD9: 401.9, ICD10: I10 - Worsening control - Increase lisinopril 20 mg - Recommend home blood pressure monitoring, to bring results to next visit - Encouraged sodium restriction, DASH or Mediterranean diet - Recommend regular aerobic exercise - Discussed need for and benefit of weight loss. BMI 38.81 kg/(m^2) - Follow up in 1 month - LISINOPRIL 20 MG TABLET 3. 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 Chronic constipation - ICD9: 564.00, ICD10: K59.09 - Increase water and fiber in the diet. - May use Miralax 1-2 times per day as needed. 5. CAROLINE (obstructive sleep apnea) - ICD9: 327.23, ICD10: G47.33 - Stable, continue with CPAP. 6. Situational stress - ICD9: V62.89, ICD10: F43.9 - CORTISOL, SERUM 7. Hyperlipidemia, mixed - ICD9: 272.2, ICD10: E78.2 - Control undetermined, due for labs - Counseled on healthy diet and regular exercise - LIPID PANEL BASIC 8. Women's annual routine gynecological examination - ICD9: V72.31, ICD10: Z01.419 - Pap Due - CONSULT TO GYNECOLOGY 9. Screening for colon cancer - ICD9: V76.51, ICD10: Z12.11 - CONSULT TO GENERAL SURGERY 10. Screening for diabetes mellitus - ICD9: V77.1, ICD10: Z13.1 - HEMOGLOBIN A1C Follow-up in 1 month or sooner as needed. Discussed treatment plan and patient voices understanding. Patient's questions answered appropriately. Medications and potential side effects were discussed and patient voices understanding. Marilee Sanon APRN.CNP This note was partially generated using [employer] voice recognition system. Note was reviewed for accuracy. There may be minor misspellings or grammar miscues with Dragon voice recognition. documented in this encounter [facility] 08-07-2023 Instructions Marilee Sanon APRN.CNP - 08/07/2023 1:40 PM EDT Images from the original note were not included. Increase Lisinopril 20 mg daily Monitor blood pressure at home, goal 130/80 or less. Get fasting labs completed, no food 10-12 hours prior, may have black coffee and water. Labs: 7a-5p, Thursday 7:30a-12:00 May try Magnesium Glycinate to help with sleep Increase fiber and water in the diet. If needed may use Miralax 1-2 times per day as needed for constipation. May consider Physillium Husk. Due for mammogram Have consult with general surgery to discuss colonoscopy Due for Pap, consult placed for [employer] Follow up in 1 month. May add on Ruben seeds into oatmeal or parfaits Improving Your Health with Fiber This guide provides basic information to help you start increasing dietary fiber in your diet. These are general guidelines that may be tailored to meet your needs. Fiber is an important dietary substance to help support your health. Making changes in your current eating habits will help you eat more healthfully. Most fiber-containing foods are also good sources of vitamins, minerals, and antioxidants, which offer many health benefits. A registered dietitian can provide in-depth nutrition education to help you develop a personal action plan. What is fiber? Fiber is the structural part of plant foods--such as fruits, vegetables, and grains--that our bodies cannot digest or break down. There are two kinds of fiber: soluble and insoluble. Soluble fiber: dissolves in water to form a gummy gel. It can slow down the passage of food from the stomach to the intestine. Examples: dried beans, oats, barley, banana, potatoes, and soft parts of apples and pears Insoluble fiber: often referred to as roughage because it does not dissolve in water. It holds onto water, which helps produce softer, bulkier stools to help regulate bowel movements. Examples: whole bran, whole grain products, nuts, corn, carrots, grapes, berries, and peels of apples and pears What other things does fiber do? Research has shown that a diet rich in fiber is associated with many health benefits, including the followin. Lowers cholesterol--Soluble fiber has been shown to lower cholesterol by binding to bile (composed of cholesterol) and taking it out of the body. This may help reduce the risk of heart disease. 2. Better regulates blood sugar levels--A high-fiber meal slows down the digestion of food into the intestines, which may help to keep blood sugars from rising rapidly. 3. Weight control--A high-fiber diet may help keep you robb longer, which prevents overeating and hunger between meals. 4. May prevent intestinal cancer--Insoluble fiber increases the bulk and speed of food moving through the intestinal tract, which reduces time for harmful substances to build up. 5. Constipation--Constipation can often be relieved by increasing the fiber or roughage in your diet. Fiber works to help regulate bowel movements by pulling water into the colon to produce softer, bulkier stools. This action helps to promote better regularity. How much fiber should I eat? The recommendation is to consume about 20-35 grams of total fiber per day, with 10-15 grams from soluble fiber. This can be accomplished by choosing 6 ounces of grains (3 or more ounces from whole grains), 2 cups of vegetables, and 2 cups of fruit per day (based on a 2,000 calorie/day pattern). Note: Eating a high-fiber diet may interfere with the absorption and effectiveness of some medications. Speak to your doctor about which medications to take with caution and when to take them. Fiber also binds with certain nutrients and carries them out of the body. To avoid this, aim for the recommended 20-35 grams of fiber per day. Some studies indicate that up to 50 grams of dietary fiber may help control blood sugars for people with diabetes. When eating a high-fiber diet, be sure to drink at least eight glasses of fluid each day. Tips for increasing dietary fiber in your diet: Add fiber to your diet slowly. Too much fiber all at once may cause cramping, bloating, and constipation. When adding fiber to your diet, be sure to increase fluids (at least 64 ounces per day) to prevent constipation. Buy bread with 2-4 grams of dietary fiber per slice. Buy cereals with at least 5 grams of dietary fiber per serving. Choose cereals with a whole grain such as whole wheat or whole grain rolled oats. Choose raw fruits and vegetables in place of juice. Choose products that have a whole grain listed as the first ingredient, not enriched flour. Whole wheat flour is a whole grain--wheat flour is not. Try alternative fiber choices such as whole buckwheat, whole wheat couscous, quinoa, and bulgur. Popcorn is a whole grain. Serve it low-fat without butter for a healthier snack choice. Try whole wheat bread and whole wheat pastas. Sprinkle bran in soups, cereals, baked products, spaghetti sauce, ground meat, and casseroles. Bran also mixes well with orange juice. Use dried peas, beans, and legumes in main dishes, salads, or side dishes such as rice or pasta. Eat the skins of raw fruits and vegetables. Add dried fruit to yogurt, cereal, rice, and muffins. Try brown rice and whole grain pastas. Choose crackers with a whole grain listed as the first ingredient. Look for whole grain rye and wheat crackers. How to read a food label Food labels are standardized by the [place]. government's National Labeling and Education Act (NLEA). Nutrition labels and an ingredient list are required on most foods, so that you can make the best selection for a healthy lifestyle. Review the food label. Determine the total amount of fiber in this product or ask your dietitian or health care provider to show you how to read food labels and apply the information to your personal needs. In order for a product to be labeled high fiber, it must contain 5 grams or more of dietary fiber per serving. Fiber supplements Fiber supplements may be an option if you are not able to get enough fiber from your diet. Fiber supplements can be used to normalize both constipation and diarrhea. Check with your doctor before starting any kind of supplement. Read labels for fiber carefully. Drink at least 8 ounces of liquids with your supplement. Taking some fiber supplements without adequate liquids may cause the fiber to swell and may cause choking. Some fiber supplements to consider are Benefiber (hydrolyzed guar gum-soluble fiber), Metamucil (psyllium), Konsyl (psyllium), Citrucel (methylcellulose), Fibercon (calcium polycarbophil), and Fiberall (multiple sources of fiber). Psyllium husk and guar gum are soluble fibers. Consider keeping a food journal and tracking how much fiber you eat in a typical day. Use the fiber content chart in this handout as a guide to meeting your high fiber goal or check with www.NAL.usda.gov/fnic for additional information on the dietary fiber content of food. Food Category Food Serving Size Total Fiber (grams) Soluble Fiber (grams) Starches, Grains, Starchy vegetables Breads: Bagel-whole wheat Light white/wheat Gill-Whole wheat Pumpernickel Whole wheat Evangeline 3 1/2 inches 2 slices 7 inches slice slice slice 3 1 4 3 2 2 1 trace 1 1 trace 1 Cereals: Bran Flakes Cheerios Oatmeal Fiber One All Bran Kashi Heart to Heart 3/4 cup 1 1/4 cup 1 cup cooked 1/2 cup 2/3 cup 3/4 cup 5 4 4 14 13 5 trace 1 2 1 1 1 Grains: Barley Brown rice Pasta-whole wheat 1/2 cup cooked 1/2 cup 1/2 cup cooked 4 2 3 1 trace 1 Legumes and starchy vegetables: Garbanzo beans Kidney beans Lentils Potato (with skin) Potatoes, sweet Squash (winter) Green peas, cooked Lawson beans [place], cooked 1/2 cup 1/2 cup 1/2 cup 1 medium 1/2 cup 1/2 cup 1/2 cup 1/2 cup 1/2 cup 4 6 5 3 4 3 4 7 2 1 3 1 1 2 2 1 3 trace Nuts and Seeds Almonds Peanuts [place] seeds Walnuts 1/4 cup 1/4 cup 1/4 cup 1/4 cup 3 3 3 2 1 1 1 trace Fruits Apple with skin Banana Blueberries Grapefruit [place] Pear with skin Prunes Strawberries 1 medium 1 medium 1 cup 1/2 cup 1 medium 1 medium 3 1 cup 3 2 2 1 3 4 2 4 1 1 trace 1 2 2 1 1 Vegetables, non-starchy Broccoli [place]oun sprouts Cabbage-green Carrot Cauliflower Green beans Kale Spinach Squash (zucchini) 1/2 cup 1/2 cup 1 cup, fresh 1/2 cup cooked 1/2 cup cooked 1/2 cup 1/2 cup 1/2 cup 1/2 cup 3 4 2 2 1 2 3 2 1 1 2 1 1 trace 1 1 1 1 Copyright 9319-4716 The [facility]. All rights reserved. This information is provided by the [facility] and is not intended to replace the medical advice of your doctor or health care provider. Please consult your health care provider for advice about a specific medical condition. For additional health information, please contact the Center for Consumer Health Information at the [facility] or toll-free extension [phone]. If you prefer, you may visit [email or web address] or [email or web address]. This document was last reviewed on: 2009 index#[id number] documented in this encounter [facility] 07-20-2023 History of Presen t illness Narrative Can discuss at future visit. Alfredo Burleson APRN.AUNG 04-03..Waiting to call until colonoscopy order is placed documented in this encounter [facility] 04-02-2023 History of Presen t illness Narrative This note was created using NoteWriter. Subjective Brooke Nelson is a 47 year old female. HPI Presents with cough and congestion over the past 6 days. States postnasal drip had increased the past few days. No fever. No chest pain. No vomiting or diarrhea. No home COVID test. 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 She states her left ear has been bothering her. Some sinus pressure off and on. She has used some Mucinex cold and flu [id number]. Review of Systems Constitutional: Positive for fatigue. Negative for fever. HENT: Positive for congestion, ear pain and sinus pressure. Negative for sore throat. Respiratory: Positive for cough. Negative for shortness of breath. Cardiovascular: Negative. Gastrointestinal: Negative. Genitourinary: Negative. Musculoskeletal: Negative. Neurological: Negative. All other systems reviewed and are negative. PAST MEDICAL HISTORY Diagnosis Date Essential hypertension, benign After pregnancies Current Outpatient Medications Medication Sig Dispense Refill lisinopril (ZESTRIL) 10 mg tablet Take 1 tablet by mouth once daily. 90 tablet 3 cholestyramine-sucrose (QUESTRAN) 4 gram powder Take 4 g by mouth once daily. 378 g 11 loratadine (CLARITIN) 10 mg tablet Take 1 tablet by mouth once daily. 30 tablet 11 fluticasone (FLONASE) 50 mcg/actuation nasal spray Use 2 Sprays in each nostril once daily. Rinse mouth after use. 1 Bottle 11 CPAP (Provide supplies) AutoPAP [id number], mask (pt pref), chin strap, heated tubing & humidity, filters. Lifetime supplies. CAROLINE: G47.33. Provide 30 day download to [phone] 1 Device 0 Miscellaneous Medical Supply (BLOOD PRESSURE CUFF[place] [facility] [place] Each once daily. 1 Large Cuff. ICD-10: I10.0 Hypertension 1 Each 0 Blood Pressure Test Kit-Large kit 1 Each once daily. 1 Kit 0 Blood Pressure Test Kit-Wrist (BLOOD PRESSURE UNIT) kit 1 Each once daily. 1 Kit 0 CPAP Initiate Auto PAP @ 5-20 cm of water with humidification. Mask (per patient preference) optional chin strap (if indicated) , filters, tubing, humidifier and lifetime supplies. 1 Device 0 Cholecalciferol, Vitamin D3, 1,000 unit cap Take 1 capsule by mouth once daily. (Patient not taking: Reported on 04/09/2020 ) 30 capsule 11 No current facility-administered medications for this visit. PAST SURGICAL HISTORY Procedure Laterality Date CHOLECYSTECTOMY 12/2015 NEPHROLITHOTOMY REMOVAL STAGE 1 03/2016 blasted PAST SURGICAL HISTORY OF 1985 Eye surgery as a child for hole in retina PAST SURGICAL HISTORY OF [place] tooth extraction TONSILLECTOMY & ADENOIDECTOMY <AGE 10 FAMILY HISTORY Problem Relation Age of Onset Diabetes Mother Diabetes Father Hypertension Father Diabetes Maternal Grandfather Heart Maternal Grandfather NE other (spherocytosis) Son Social History Tobacco Use Smoking status: Never Smokeless tobacco: Never Vaping Use Vaping Use: Never used Substance Use Topics Alcohol use: No Drug use: No Objective BP 148/90 Pulse 95 Temp 36.4 C (97.6 F) Resp 21 Wt 107.6 kg (237 lb 3.2 oz) LMP 05/18/2022 (Exact Date) SpO2 97% BMI 38.81 kg/m Physical Exam Vitals reviewed. Constitutional: Appearance: Normal appearance. HENT: Head: Normocephalic and atraumatic. Right Ear: Tympanic membrane, ear canal and external ear normal. Left Ear: Tympanic membrane, ear canal and external ear normal. Nose: Congestion present. Right Sinus: No maxillary sinus tenderness or frontal sinus tenderness. Left Sinus: No maxillary sinus tenderness or frontal sinus tenderness. Mouth/Throat: Mouth: Mucous membranes are moist. Pharynx: Oropharynx is clear. Cardiovascular: Rate and Rhythm: Normal rate and regular rhythm. Heart sounds: Normal heart sounds. Pulmonary: Effort: Pulmonary effort is normal. Breath sounds: Normal breath sounds. Musculoskeletal: Cervical back: Neck supple. Skin: General: Skin is warm and dry. Neurological: Mental Status: She is alert. Assessment and Plan ASSESSMENT/PLAN: 1. Viral URI with cough - ICD9: 465.9, ICD10: J06.9 - Discussed viral etiology and rationale for treatment. - Symptomatic treatment with prn analgesia - Supportive care with fluids and rest - Follow up in 3-5 days if symptoms persist or sooner if worsening of symptoms - COVID & INFLUENZA A/B & RSV NAAT, ROUTINE Buffy Walker PA-C documented in this encounter [facility] 08-25-2022 History of Presen t illness Narrative Subjective HPI Nontoxic-appearing female presents urgent care chief complaint left eye redness and drainage. Duration of symptoms today. Associated symptoms listed above. Seen by PCP today strep test was negative. Denies any eye trauma visual changes flashes light floaters. 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 Denies any fever body aches chills productive cough chest pain shortness of breath pleuritic pain hemoptysis nausea vomiting abdominal pain change in bowel or bladder habits. Past medical history prescription medication use and allergies reviewed. .Patient presents with: Eye Problem: left eye red and drainage x this afternoon PAST MEDICAL HISTORY Diagnosis Date Essential hypertension, benign After pregnancies PAST SURGICAL HISTORY Procedure Laterality Date CHOLECYSTECTOMY 12/2015 NEPHROLITHOTOMY REMOVAL STAGE 1 03/2016 blasted PAST SURGICAL HISTORY OF 1985 Eye surgery as a child for hole in retina PAST SURGICAL HISTORY OF [place] tooth extraction TONSILLECTOMY & ADENOIDECTOMY <AGE 10 ALLERGIES Penicillins MEDICATIONS lisinopril (ZESTRIL) 10 mg tablet Take 1 tablet by mouth once daily. cholestyramine-sucrose (QUESTRAN) 4 gram powder Take 4 g by mouth once daily. loratadine (CLARITIN) 10 mg tablet Take 1 tablet by mouth once daily. fluticasone (FLONASE) 50 mcg/actuation nasal spray Use 2 Sprays in each nostril once daily. Rinse mouth after use. CPAP (Provide supplies) AutoPAP [id number], mask (pt pref), chin strap, heated tubing & humidity, filters. Lifetime supplies. CAROLINE: G47.33. Provide 30 day download to [phone] [facility] [place] Each once daily. 1 Large Cuff. ICD-10: I10.0 Hypertension Blood Pressure Test Kit-Large kit 1 Each once daily. Blood Pressure Test Kit-Wrist (BLOOD PRESSURE UNIT) kit 1 Each once daily. CPAP Initiate Auto PAP @ 5-20 cm of water with humidification. Mask (per patient preference) optional chin strap (if indicated) , filters, tubing, humidifier and lifetime supplies. Cholecalciferol, Vitamin D3, 1,000 unit cap Take 1 capsule by mouth once daily. (Patient not taking: Reported on 04/09/2020 ) FAMILY HISTORY Problem Relation Age of Onset Diabetes Mother Diabetes Father Hypertension Father Diabetes Maternal Grandfather Heart Maternal Grandfather NE other (spherocytosis) Son Social History Tobacco Use Smoking status: Never Smokeless tobacco: Never Vaping Use Vaping Use: Never used Substance Use Topics Alcohol use: No Drug use: No BP 152/94 Pulse 96 Temp 36.8 C (98.3 F) Resp 16 Wt 105.7 kg (233 lb) LMP 05/18/2022 (Exact Date) SpO2 97% BMI 38.12 kg/m Review of Systems Constitutional: Negative for chills, fever and malaise/fatigue. HENT: Negative for congestion, ear discharge, ear pain, sinus pain and sore throat. Eyes: Positive for discharge and redness. Negative for blurred vision, double vision, photophobia and pain. Respiratory: Negative for cough, hemoptysis, sputum production, shortness of breath, wheezing and stridor. Cardiovascular: Negative for chest pain. Gastrointestinal: Negative for abdominal pain, diarrhea, nausea and vomiting. Musculoskeletal: Negative for myalgias. Skin: Negative for itching and rash. Neurological: Negative for dizziness and headaches. Objective Physical Exam Constitutional: General: She is not in acute distress. Appearance: She is not diaphoretic. HENT: Head: Normocephalic. Mouth/Throat: Mouth: Mucous membranes are moist. Pharynx: Oropharynx is clear. No oropharyngeal exudate or posterior oropharyngeal erythema. Eyes: General: Lids are normal. Vision grossly intact. Left eye: Discharge present.No foreign body or hordeolum. Conjunctiva/sclera: Left eye: Left conjunctiva is injected. No chemosis, exudate or hemorrhage. Pupils: Pupils are equal, round, and reactive to light. Comments: limbus clear. Visual acuity unchanged. Cardiovascular: Rate and Rhythm: Normal rate and regular rhythm. Heart sounds: Normal heart sounds. Pulmonary: Effort: Pulmonary effort is normal. No tachypnea, accessory muscle usage or respiratory distress. Breath sounds: Normal breath sounds. No stridor. Abdominal: Palpations: Abdomen is soft. Tenderness: There is no abdominal tenderness. Musculoskeletal: Cervical back: Normal range of motion and neck supple. No rigidity or tenderness. Lymphadenopathy: Cervical: No cervical adenopathy. Skin: General: Skin is warm and dry. Neurological: Mental Status: She is alert and oriented to person, place, and time. ASSESSMENT/PLAN: 1. Bacterial conjunctivitis - ICD9: 372.39, 041.9, ICD10: H10.9 - see medication orders - course and contagiousness issues discussed, including hand washing. - Instructed to call if high fever, development of periorbital redness or swelling, eye pain, visual changes, concerns or if symptoms persist. Diagnoses bacterial conjunctivitis. Red flags prompt reevaluation discussed. Patient was educated on supportive therapies. Patient will follow up with primary care provider as needed. Patient was instructed to immediately proceed to emergency room for any new, worsening, or symptoms lasting longer than anticipated. The patient's clinical presentation is otherwise unremarkable at this time. Based on exam and clinical finding, the patient is stable for discharge. Plan of care was discussed with patient. Patient verbalizes understanding and agrees to plan of care. This note was generated using [employer] software. It may contain errors in wording, punctuation, or spelling. Abdi Petersen APRN.AUNG documented in this encounter [facility] 08-25-2022 History of Presen t illness Narrative 08/25/2022 Patient presents with: Sore Throat: Sore throat x3 days. Nasal drainage and left ear congestion. SUBJECTIVE: This is a 47 year old that is here today for Above Complaints.. Three days ago started with sore throat. 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 Also has clear nasal drainage and left ear feels congested. Taking tylenol which helps. Denies fevers, chills, muscle aches, headaches, SOB, dyspnea, wheezing, nausea, vomiting or diarrhea. Did not self test for COVID-19. Component Latest Ref Rng & Units 08/25/2022 Strep A (POCT) Negative Negative Procedural Control Valid PAST MEDICAL HISTORY Diagnosis Date Essential hypertension, benign After pregnancies ALLERGIES Penicillins MEDICATIONS Current Outpatient Medications Medication Sig lisinopril (ZESTRIL) 10 mg tablet Take 1 tablet by mouth once daily. cholestyramine-sucrose (QUESTRAN) 4 gram powder Take 4 g by mouth once daily. loratadine (CLARITIN) 10 mg tablet Take 1 tablet by mouth once daily. fluticasone (FLONASE) 50 mcg/actuation nasal spray Use 2 Sprays in each nostril once daily. Rinse mouth after use. CPAP (Provide supplies) AutoPAP [id number], mask (pt pref), chin strap, heated tubing & humidity, filters. Lifetime supplies. CAROLINE: G47.33. Provide 30 day download to [phone] [employer] (BLOOD PRESSURE CUFF) misc 1 Each once daily. 1 Large Cuff. ICD-10: I10.0 Hypertension Blood Pressure Test Kit-Large kit 1 Each once daily. Blood Pressure Test Kit-Wrist (BLOOD PRESSURE UNIT) kit 1 Each once daily. Cholecalciferol, Vitamin D3, 1,000 unit cap Take 1 capsule by mouth once daily. (Patient not taking: Reported on 04/09/2020 ) CPAP Initiate Auto PAP @ 5-20 cm of water with humidification. Mask (per patient preference) optional chin strap (if indicated) , filters, tubing, humidifier and lifetime supplies. No current facility-administered medications for this visit. Medications and allergies reviewed by this provider. SOCIAL HISTORY Social History Tobacco Use Smoking status: Never Smokeless tobacco: Never Vaping Use Vaping Use: Never used Substance Use Topics Alcohol use: No Drug use: No REVIEW OF SYSTEMS All other reviewed and negative other than HPI. OBJECTIVE: BP 140/84 Pulse 81 Temp 36.7 C (98.1 F) Resp 18 Wt 105.3 kg (232 lb 3.2 oz) LMP 05/18/2022 (Exact Date) SpO2 97% BMI 37.99 kg/m . Vital signs reviewed by this provider. APPEARANCE Well appearing, alert, in no acute distress, well-hydrated, well nourished. EYES conjunctiva and sclera normal. EARS External ears normal, canals clear THROAT normal, no erythema NECK Supple, no adenopathy; thyroid symmetric, normal size, no bruits HEART RRR with normal S1 and S2, no murmurs, no gallops, no JVD appreciated LUNG clear to auscultation. No wheezes, rhonchi or rales SKIN Skin color, texture, turgor normal, no suspicious rashes or lesions to exposed skin COLORECTAL CANCER SCREENING Never done BP CONTROLLED (<130/80) due on 05/09/2020 COVID-19 VACCINE(3 - Booster for Pfizer series) due on 02/15/2021 PAP TESTING due on 08/21/2021 HPV TESTING due on 08/21/2021 DEPRESSION ASSESSMENT Never done MAMMOGRAM due on 11/19/2022 INFLUENZA(Season Ended) due on 12/12/2022 ANNUAL PCP TEAM CHRONIC DISEASE VISIT due on 07/18/2023 DIABETES SCREEN due on 10/17/2024 DTAP,TDAP,TD(2 - Td or Tdap) due on 12/26/2025 LIPID SCREEN due on 10/17/2026 HEPATITIS B Completed HEPATITIS C SCREENING Completed HIV SCREENING Discontinued ASSESSMENT/PLAN: 1. Sore throat - ICD9: 462, ICD10: J02.9 - suspect viral - Rapid Strep negative in the office today - Discussed supportive care treatment with fluids, rest and analgesia. - The patient may also use OTC decongestants prn, warm salt water gargles, throat lozenges and/or OTC throat spray as needed, and nasal saline gtts and suction prn. - The patient should follow up in 3-5 days if symptoms persist or worsen - Call back if drooling, increased temperature, symptoms of dehydration and/or still sick in one week - STREP A MOLECULAR (POC) Kristie Joshua APRN.CNP Prescription instructions reviewed with patient as applicable. Patient advised if symptoms do not improve or if symptoms worsen sooner, to contact their primary care physician. Potential red flag symptoms discussed with the patient. Reviewed appropriate action plan to take if red flag symptoms occur. Patient agreeable to treatment plan. I spent a total of 20 minutes on the date of the service which included preparing to see the patient, [id number] patient care, completing clinical documentation, obtaining and/or reviewing separately obtained history, performing a medically appropriate examination, counseling and educating the patient/family/caregiver, and ordering medications, tests, or procedures. documented in this encounter [facility] 07-17-2022 History of Presen t illness Narrative Chief Complaint Patient presents with: Hospital Follow Up HPI Brooke Nelson is a 47 year old female who presents here today for a [facility] ED follow up. Pt here here today for a follow up visit. Pt has hx of HTN, went off her medications about a year ago, maybe more. Pt has not been seen by this office since 11/2020 at that time her BP was suboptimally controlled despite being on Lisinopril 10 mg once daily. Pt states over the past week she knew her BP was elevated due to some slight blurred division but does have contacts that she's adjusting too. She was hearing and feeling pulsating in her ears and feet, especially with lying down. Last night she woke up at 3:00 am and it was worse and she felt like her heart racing and this prompted her to go into the ED. Denies having any chest pain or sob. No previous issues with the Lisinopril, but just d/c the medication. Admits to not watch her diet as could as she should. Doesn't eat a lot of salt. Drinks 1 pop daily but trying to reduce this. Has some tightness in the left side of her neck which concerned her. [facility] ED visit 07/16/22: Narrative: Patient presents secondary to elevated blood pressure. She is a history of hypertension but has been off of her blood pressure medication for a little overa year. She states last evening and then waking in the middle the night tonightshe felt a pulsating sensation in her ears. She checked her blood pressure at home and systolic pressure was in the 160s. Her heart rate was in the 80s. Shedenies chest pain. On repeat evaluation patient's resting comfortably. Her systolic blood pressure has been in the 130s and 140s after her initial blood pressure was elevated at 179/98. Heart rate has been normal. Work-up at this time reveals no evidence of any organ damage from hypertension. I did recommend she keep a journal of her blood pressures over the next week or 2 and follow-up with her primary care physician. This will help them determine if she needs to be restarted on her blood pressure medication. Return instructions have been provided. Past medical history, appointments, medications, allergies reviewed. Previous Medical History PAST MEDICAL HISTORY Diagnosis Date Essential hypertension, benign After pregnancies Previous Surgical History PAST SURGICAL HISTORY Procedure Laterality Date CHOLECYSTECTOMY 12/2015 NEPHROLITHOTOMY REMOVAL STAGE 1 03/2016 blasted PAST SURGICAL HISTORY OF 1985 Eye surgery as a child for hole in retina PAST SURGICAL HISTORY OF [place] tooth extraction TONSILLECTOMY & ADENOIDECTOMY <AGE 10 Family History FAMILY HISTORY Problem Relation Age of Onset Diabetes Mother Diabetes Father Hypertension Father Diabetes Maternal Grandfather Heart Maternal Grandfather NE other (spherocytosis) Son Patient Allergies ALLERGIES Allergen Reactions Penicillins Rash CHILDHOOD REACTION Current Medications Current Outpatient Medications on File Prior to Visit Medication Sig cholestyramine-sucrose (QUESTRAN) 4 gram powder Take 4 g by mouth once daily. lisinopril (ZESTRIL, PRINIVIL) 10 mg tablet Take 1 tablet by mouth once daily. loratadine (CLARITIN) 10 mg tablet Take 1 tablet by mouth once daily. fluticasone (FLONASE) 50 mcg/actuation nasal spray Use 2 Sprays in each nostril once daily. Rinse mouth after use. CPAP (Provide supplies) AutoPAP [id number], mask (pt pref), chin strap, heated tubing & humidity, filters. Lifetime supplies. CAROLINE: G47.33. Provide 30 day download to [phone] [facility] CUFF[facility] [place] Each once daily. 1 Large Cuff. ICD-10: I10.0 Hypertension Blood Pressure Test Kit-Large kit 1 Each once daily. Blood Pressure Test Kit-Wrist (BLOOD PRESSURE UNIT) kit 1 Each once daily. Cholecalciferol, Vitamin D3, 1,000 unit cap Take 1 capsule by mouth once daily. (Patient not taking: Reported on 04/09/2020 ) CPAP Initiate Auto PAP @ 5-20 cm of water with humidification. Mask (per patient preference) optional chin strap (if indicated) , filters, tubing, humidifier and lifetime supplies. No current facility-administered medications on file prior to visit. Social History Social History Tobacco Use Smoking status: Never Smokeless tobacco: Never Vaping Use Vaping Use: Never used Substance Use Topics Alcohol use: No Drug use: No EXAM: BP 160/102 Pulse 72 Resp 16 Wt 105.6 kg (232 lb 12.8 oz) LMP 05/18/2022 (Exact Date) BMI 38.09 kg/m General Appearance: Well appearing, alert, in no acute distress, well-hydrated, well nourished. and Obese. Lungs: Lungs clear to auscultation. No wheezing, rhonchi, rales.. Heart: RRR without murmur, gallop, or rubs. No ectopy. Musculoskeletal: Left side of neck evaluated. Health Maintenance List COLORECTAL CANCER SCREENING Never done BP CONTROLLED (<130/80) due on 05/09/2020 COVID-19 VACCINE(3 - Booster for Pfizer series) due on 02/15/2021 PAP TESTING due on 08/21/2021 HPV TESTING due on 08/21/2021 ANNUAL PCP TEAM CHRONIC DISEASE VISIT due on 11/30/2021 DEPRESSION ASSESSMENT Never done MAMMOGRAM due on 11/19/2022 INFLUENZA(Season Ended) due on 12/12/2022 DIABETES SCREEN due on 10/17/2024 DTAP,TDAP,TD(2 - Td or Tdap) due on 12/26/2025 LIPID SCREEN due on 10/17/2026 HEPATITIS B Completed HEPATITIS C SCREENING Completed HIV SCREENING Discontinued Data reviewed [facility] ER report and labs/EKG/CXR ASSESSMENT/PLAN: 1. Hospital discharge follow-up - ICD9: V67.59, ICD10: Z09 (primary diagnosis) - Stable 2. Hypertension, unspecified type - ICD9: 401.9, ICD10: I10 - poor control - Begin lisinopril (Zestril/Prinivil) - Recommended regular aerobic exercise. - Recommend home blood pressure monitoring, to bring results in on next visit - Goal of BP <140/90 - LISINOPRIL 10 MG TABLET 1 mo f/u I agree with the Chief Complaint, ROS, and Past Histories independently gathered by the clinical it application support analyst and the remaining scribed note accurately describes my personal service to the patient. Medical Decision Making: Problems: Moderate: 1+ chronic illnesses with change Risk: Moderate: Drug management Medical Decision Making Level: 4 - Moderate Duane Rowland MD The documentation for this note was completed by Cristina Koroma Ma acting as scribe for Duane Rowland MD. July 17, 2022 3:43 PM. Cristina Koroma Ma documented in this encounter [facility] 07-17-2022 Discharge summary Note Date/Time July 17, 2022 6:19 am [facility] Medical Records Department [address] [place] [address] Emergency Department Summary 07/17/22 MR#: [id number] Acct: [id number] Name: BROOKE NELSON Rep #:[id number] 20 : 1975 47 From: Debora Tolentino MD PCP: Dr. Duane Rowland MD Status:RE G ER Location: ED HPI History of Present Illness Chief Complaint: Hypertension Informant: patient Narrative Narrative: Patient presents secondary to elevated blood pressure. She is a history of hypertension but has been off of her blood pressure medication for a little overa year. She states last evening and then waking in the middle the night fortunato felt a pulsating sensation in her ears. She checked her blood pressure at home and systolic pressure was in the 160s. Her heart rate was in the 80s. Shedenies chest pain. [facility] Medical History Hypertension Obstructive sleep apnea Home Medications l.norgest-eth.estradiol triphasic 50-30 (6)/75-40(5)/125-30(10) tablet (Myzilra)1 ea PO DAILY 12/24/15 [History Last Taken 12/23/15] hydrocodone-acetaminophen 5-325mg 5mg-325mg ([place]) 1 - 2 ea PO Q4H PRN PRN Pain#20 tabs 03/28/16 [Rx Last Taken Unknown] Allergy/AdvReac Type Severity Reaction Status Date / Time Penicillins [PCN] Allergy Rash Verified 03/28/16 11:15 Social History Smoking Status: Never smoker ROS ROS ED Constitutional Constitutional ED: Denies chills or fever(s) Eyes Eyes: Denies change in vision or discharge from eye(s) ENT ENT ED: Denies discharge from eye(s), rhinorrhea or sore throat Cardiovascular Cardiovascular: Denies chest pain or palpitations Respiratory/Chest Respiratory/Chest: Denies cough or dyspnea Gastrointestinal Gastrointestinal: Denies abdominal pain, diarrhea, nausea or vomiting Genitourinary Genitourinary ED: Denies dysuria Musculoskeletal Musculoskeletal: Denies back pain or extremity pain Integumentary Denies Abrasions or rash Neurologic Neurologic: Denies headache(s) or weakness Allergic/Immunologic Allergic/Immunologic ED: Denies lip swelling or urticaria EXAM Physical Exam Const Positive well nourished and well developed General Appearance ED: well developed HEENT Reports normocephalic and head/scalp atraumatic Eyes PERRL and EOMs intact bilaterally Neck supple Chest Wall inspection of chest normal and palpation of chest normal Resp normal respiratory effort and clear to auscultation bilaterally Cardio regular rate and regular rhythm GI normal to inspection, nondistended, normoactive bowel sounds Palpation: soft Extremity normal to inspection Neuro oriented x3 and no sensory deficits noted Sensorium / Orientation: alert Motor Exam: strength 5/5 throughout Psych mental status grossly normal Skin no rashes or lesions noted MDM MDM MDM Narrative Medical decision making narrative: 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 EKG obtained to evaluate for cardiac arrhythmia/ischemia. Chest x-ray obtained to evaluate for acute lung pathology, cardiac size, or mediastinal abnormality. Labwork obtained to evaluate for leukocytosis, anemia, and electrolyte derangement. Lab Data Attestation: I reviewed the patient's lab results. Lab results narrative: CBC and chemistry studies unremarkable. Troponin is normal at 5. Radiography Chest X-Ray - ED: 1 View, Read by ED Physician, Normal, Heart, Lungs and Mediastinum EKG Initial EKG: Attestation: I personally reviewed and interpreted this EKG as follows: Interpretation: Sinus Rhythm (Sinus at 81 bpm with no acute ischemia.) Differential Diagnosis Chest pain/SOB: ACS ACS: Positive for no evidence of ACS based on cardiac biomarkers and EKG without ischemia and aortic dissection Reason(s) Aortic dissection less likely:: Positive for normal vascular exam, normal neurological exam and no widened mediastinum on CXR Treatment and Re-Evaluation :: On repeat evaluation patient's resting comfortably. Her systolic blood pressure has been in the 130s and 140s after her initial blood pressure was elevated at 179/98. Heart rate has been normal. Work-up at this time reveals no evidence of any organ damage from hypertension. I did recommend she keep a journal of her blood pressures over the next week or 2 and follow-up with her primary care physician. This will help them determine if she needs to be restarted on her blood pressure medication. Return instructions have been provided. Discharge Plan Triage Chief Complaint: Hypertension ED Provider: Debora Tolentino Dx/Rx/DC Orders Clinical Impression: Hypertension Instructions: ED Hypertension, To Be Confirmed Prescriptions: No Action levonorg-eth estrad triphasic [Myzilra] 1 EACH tablet 1 ea PO DAILY hydrocodone-acetaminophen [[place]] 1 EACH tablet 1 - 2 ea PO Q4H PRN PRN (Reason: Pain) Qty: 20 0RF Primary Care Provider: Duane Rowland Referrals: Duane Rowland MD [Primary Care Provider] - 1-2 Weeks Disposition Disposition: Home, Self Care What to do if you have Problems For any increased pain, shortness of breath, bleeding, nausea or vomiting, chestpain, or any unexpected problems, contact your Primary Care Provider. Call [facility] ([phone]) or report to the closest Emergency Room. Call 911 if necessary. 07/17/22 0716 <Electronically signed by Debora Tolentino MD> Cosigner Signature (if applicable): CC: Dr. Duane Rowland MD ~ Signed [facility] Work Phone: [phone] 268-898102-05-2023 Instructions* Patient Instructions* Albertina Deleon APRN.CNP - 05/18/2022 1:37 PM EST STREP INFECTIONS: Streptococcal bacteria can cause a sore throat, ear and sinus infections, and skin diseases. Strep throat is diagnosed by a special throat swab or culture test. These infections require either an antibiotic shot or an oral antibiotic medicine to get rid of all the bacteria and prevent rheumatic fever, a dangerous complication. The symptoms of Strep infection, however, usually get better after just 2-3 days of drug treatment. These infections are very contagious; any close contacts who have a fever, sore throat, or illness symptoms should see their doctor right away. Strep is no longer contagious after 24 hours of antibiotic treatment so you may return to school or work if your fever and pain are better in one day. Strep infections can cause serious complications including throat abscess, rheumatic fever and kidney disease, so be sure to take all your antibiotic medicine. See your doctor or return here if your symptoms worsen or are not improved in 3 days or for difficulty breathing or inability to swallow. [facility] History of Present illness Narrative* Albertina Deleon APRN.CNP - 05/18/2022 1:33 PM EST This note was created using NoteWriter. Subjective Brooke Nelson is a 46 year old female. 46 year old female with PMH HTN, CAROLINE, and obesity presents for illness. Acute onset 4 DAYS AGO +sore throat + swollen glands +ear congestion and pain bilateral +chills Denies cough Denies fever Denies SOB or dyspnea. Denies abdominal pain. 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 The history is provided by the patient. No language and literature division chair was used. Pharyngitis This is a new problem. The current episode started in the past 7 days. The problem occurs constantly. The problem has been unchanged. Associated symptoms include chills, congestion, a fever, headaches, a sore throat and swollen glands. Pertinent negatives include no abdominal pain, anorexia, arthralgias, change in bowel habit, chest pain, coughing, diaphoresis, fatigue, joint swelling, myalgias, nausea, neck pain, numbness, rash, urinary symptoms, vertigo, visual change, vomiting or weakness. Nothing aggravates the symptoms. She has tried nothing for the symptoms. The treatment provided no relief. PAST MEDICAL HISTORY Diagnosis Date Essential hypertension, benign After pregnancies PAST SURGICAL HISTORY Procedure Laterality Date CHOLECYSTECTOMY 12/2015 NEPHROLITHOTOMY REMOVAL STAGE 1 03/2016 blasted PAST SURGICAL HISTORY OF 1985 Eye surgery as a child for hole in retina PAST SURGICAL HISTORY OF [place] tooth extraction TONSILLECTOMY & ADENOIDECTOMY <AGE 10 ALLERGIES Penicillins MEDICATIONS cholestyramine-sucrose (QUESTRAN) 4 gram powder Take 4 g by mouth once daily. lisinopril (ZESTRIL, PRINIVIL) 10 mg tablet Take 1 tablet by mouth once daily. fluticasone (FLONASE) 50 mcg/actuation nasal spray Use 2 Sprays in each nostril once daily. Rinse mouth after use. CPAP (Provide supplies) AutoPAP [id number], mask (pt pref), chin strap, heated tubing & humidity, filters. Lifetime supplies. CAROLINE: G47.33. Provide 30 day download to [phone] [employer] (BLOOD PRESSURE CUFF) [facility] [place] Each once daily. 1 Large Cuff. ICD-10: I10.0 Hypertension azithromycin (ZITHROMAX) 500 mg tablet Take 1 tablet by mouth once daily for 5 days. loratadine (CLARITIN) 10 mg tablet Take 1 tablet by mouth once daily. Blood Pressure Test Kit-Large kit 1 Each once daily. Blood Pressure Test Kit-Wrist (BLOOD PRESSURE UNIT) kit 1 Each once daily. Cholecalciferol, Vitamin D3, 1,000 unit cap Take 1 capsule by mouth once daily. (Patient not taking: Reported on 04/09/2020 ) CPAP Initiate Auto PAP @ 5-20 cm of water with humidification. Mask (per patient preference) optional chin strap (if indicated) , filters, tubing, humidifier and lifetime supplies. FAMILY HISTORY Problem Relation Age of Onset Diabetes Mother Diabetes Father Hypertension Father Diabetes Maternal Grandfather Heart Maternal Grandfather NE other (spherocytosis) Son Social History Tobacco Use Smoking status: Never Smokeless tobacco: Never Vaping Use Vaping Use: Never used Substance Use Topics Alcohol use: No Drug use: No Review of Systems Constitutional: Positive for chills and fever. Negative for diaphoresis and fatigue. HENT: Positive for congestion and sore throat. Negative for ear discharge, ear pain, postnasal drip, sinus pressure and sinus pain. Respiratory: Negative for apnea, cough, choking and chest tightness. Cardiovascular: Negative for chest pain, palpitations and leg swelling. Gastrointestinal: Negative for abdominal pain, anorexia, change in bowel habit, nausea and vomiting. Musculoskeletal: Negative for arthralgias, joint swelling, myalgias and neck pain. Skin: Negative for color change, pallor and rash. Neurological: Positive for headaches. Negative for vertigo, weakness and numbness. Hematological: Negative for adenopathy. Does not bruise/bleed easily. Psychiatric/Behavioral: Negative for agitation and behavioral problems. Objective BP 148/90 Pulse 101 Temp 36.8 C (98.3 F) (Tympanic) Resp 18 Wt 106.2 kg (234 lb 3.2 oz) LMP 05/18/2022 (Exact Date) SpO2 97% BMI 38.32 kg/m Physical Exam Vitals and nursing note reviewed. Constitutional: General: She is not in acute distress. Appearance: Normal appearance. She is normal weight. She is not ill-appearing, toxic-appearing or diaphoretic. HENT: Head: Normocephalic and atraumatic. Right Ear: Ear canal and external ear normal. Left Ear: Ear canal and external ear normal. Nose: Nose normal. No congestion or rhinorrhea. Mouth/Throat: Mouth: Mucous membranes are moist. Pharynx: Posterior oropharyngeal erythema (2 + enlarged tonsils. Uvula midline. Handling secretions.) present. No oropharyngeal exudate. Eyes: General: Right eye: No discharge. Left eye: No discharge. Extraocular Movements: Extraocular movements intact. Conjunctiva/sclera: Conjunctivae normal. Pupils: Pupils are equal, round, and reactive to light. Cardiovascular: Rate and Rhythm: Normal rate and regular rhythm. Pulses: Normal pulses. Heart sounds: Normal heart sounds. No murmur heard. No friction rub. Pulmonary: Effort: Pulmonary effort is normal. No respiratory distress. Breath sounds: Normal breath sounds. No stridor. No wheezing, rhonchi or rales. Chest: Chest wall: No tenderness. Abdominal: General: Abdomen is flat. There is no distension. Palpations: Abdomen is soft. There is no mass. Tenderness: There is no abdominal tenderness. There is no right CVA tenderness, left CVA tenderness, guarding or rebound. Hernia: No hernia is present. Musculoskeletal: General: No swelling, tenderness, deformity or signs of injury. Normal range of motion. Cervical back: Normal range of motion and neck supple. No rigidity. Right lower leg: No edema. Left lower leg: No edema. Lymphadenopathy: Cervical: No cervical adenopathy. Skin: General: Skin is warm and dry. Capillary Refill: Capillary refill takes less than 2 seconds. Coloration: Skin is not jaundiced or pale. Findings: No bruising, erythema, lesion or rash. Neurological: General: No focal deficit present. Mental Status: She is alert and oriented to person, place, and time. Cranial Nerves: No cranial nerve deficit. Sensory: No sensory deficit. Motor: No weakness. Coordination: Coordination normal. Gait: Gait normal. Psychiatric: Mood and Affect: Mood normal. Behavior: Behavior normal. Thought Content: Thought content normal. Judgment: Judgment normal. Assessment and Plan ASSESSMENT/PLAN: 1. Strep pharyngitis - ICD9: 034.0, ICD10: J02.0 - suspect strep - Alere Strep Test POSITIVE, no culture pending - antibiotic as written - Discussed supportive care treatment with fluids, rest and analgesia. - The patient may also use OTC cough and cold meds as needed, warm salt water gargles, throat lozenges and/or OTC throat spray as needed, and nasal saline gtts and suction prn. - Contagious dz precautions discussed- including considered contagious until on antibiotics for 24 hours - The patient should follow up in 3-5 days if symptoms persist or worsen - Call back if drooling, increased temperature, symptoms of dehydration and/or still sick in one week - STREP A MOLECULAR (POC) Albertina Deleon APRN.CNP documented in [facility] encounter[facility] Miscellaneous Notes* Telephone Encounter - Alfredo Burleson APRN.CNP - 01/06/2022 6:57 AM EDT The following approved medication requests have been transmitted electronically. Requested Prescriptions Pending Prescriptions Disp Refills cholestyramine-sucrose (QUESTRAN) 4 gram powder 378 g 11 Sig: Take 4 g by mouth once daily. Alfredo Burleson APRN.CNP * Telephone Encounter - Ayala Mcdonald Ma - 01/04/2022 10:40 AM EDT Last office visit: 11/30/20 F/u scheduled: none Ayala Mcdonald Ma documented in this encounterSum[facility]08-10-2022 Miscellaneous Notes* Telephone Encounter - Cristina Koroma Ma - 11/20/2021 1:23 PM EDT Pt notified of normal mammogram results via [employer]. Cristina Koroma Ma * Telephone Encounter - Marilee Sanon APRN.CNP - 11/20/2021 1:03 PM EDT Can you please call the patient and let her know that her mammogram was negative. Recommend repeat screening in 1 year. Please let me know if she has any questions. Thank you. Marilee Sanon APRN.CNP documented in this encounterSumma Health [facility]08-09-2022 History of Present illness Narrative* Ryanne Serna RT(R) - 11/19/2021 3:30 PM EDT Radiology Service Progress Note PATIENT NAME: Brooke Nelson DATE OF SERVICE: November 19, 2021 TIME: 3:15 PM PATIENT IDENTITY VERIFICATION COMPLETED USING TWO (2) IDENTIFIERS: Name and Date of confirmedby patient verbally. FALL SCREENING: Has the patient had 2 falls in the last year or 1 fall with injury or currently using an Ambulatory Assistive Device (Walker, Cane, Wheelchair, Crutches, etc.)? No PATIENT GENDER DATA: Female. status: : No status: NO. PATIENT RELEVANT IMPLANT DATA REVIEWED: Not Applicable RADIOLOGY DEPARTMENT: Mammography PERIPHERAL IV DATA: Not applicable SIGNED BY: RT Shannen(R) November 19, 2021 3:15 PM documented in this encounterSumma Health [facility]07-08-2022 Miscellaneous Notes* Telephone Encounter - Em Roldan RN - 10/18/2021 11:05 AM EDT Called and left a detailed voicemail notifying patient of providers message. Hospital phone number was left in case patient had any questions. Sent results to Pt in [employer] message. Em Roldan RN * Telephone Encounter - Marilee Sanon APRN.CNP - 10/18/2021 10:55 AM EDT Can you please call the patient and let her know that I reviewed her lab results. Liver enzyme was just mildly elevated, cholesterol was elevated as well. No signs of diabetes, A1c 5.6. I would recommend watching alcohol and Tylenol use to improve liver function. Try to decrease processed foods in the diet, increase protein, vegetables, and get some form of exercise. No further testing needed at this time. Please let me know if she has any questions. Thank you. Marilee Sanon APRN.CNP documented in this encounterCleveland [id number] Miscellaneous Notes* Letter - Mammography Coordinator - 10/16/2021 2:01 PM EDT October 16, 2021 PID: [id number] Brooke Nelson [address] [place] [address] Dear Ms. Nelson, Your recent breast imaging exam on 10/16/2021 showed a possible finding that requires additional imaging studies for a complete evaluation. Most such findings are probably benign (not cancer). If you have a healthcare provider who ordered/prescribed your screening mammogram: Please call [phone] or [phone]: [phone] to schedule an appointment for your additional imaging (if youhave not already done so). If you DO NOT have a healthcare provider (ie you did not have an order/prescription for your screening mammogram): Please call to schedule an appointment for your additional imaging (if you have not already done so). You must have an order/prescription from your physician when calling to schedule your appointment. If your order/prescription is not electronic, you must bring the hard copy with you on the day of your exam to avoid delays. Your imaging studies and reports are kept on [facility] as part of your permanent medical record, and are available for your continuing care. Thank you for allowing us to help in meeting your health care needs. Sincerely, Dr. Ibrahim Interpreting Radiologist [facility] (Additional imaging) documented in this encounterSumma Health Barber[facility] Campus07-06-2022 History of Present illness Narrative* RT Luis Carlos(R) - 10/16/2021 11:10 AM EDT Radiology Service Progress Note PATIENT NAME: Brooke Nelson DATE OF SERVICE: October 16, 2021 TIME: 11:20 AM PATIENT IDENTITY VERIFICATION COMPLETED USING TWO (2) IDENTIFIERS: Name and Date of confirmedby patient verbally. FALL SCREENING: Has the patient had 2 falls in the last year or 1 fall with injury or currently using an Ambulatory Assistive Device (Walker, Cane, Wheelchair, Crutches, etc.)? No PATIENT GENDER DATA: Female. status: : No status: NO. PATIENT RELEVANT IMPLANT DATA REVIEWED: Not Applicable RADIOLOGY DEPARTMENT: Mammography PERIPHERAL IV DATA: Not applicable SIGNED BY: RT Luis Carlos(R) October 16, 2021 11:20 AM documented in this encounterSumma Health [facility]07-30-2021 Miscellaneous Notes* Telephone Encounter - Oliva Aguilar RN - 11/09/2020 10:25 AM EDT Patient asking pcp to review and advise on UACNS results. Reports she is having pain with urination, pelvic pain, urgency, frequency. documented in this encounterSumma Health [facility]02-07-2008 History of Past illness Narrative* Problem Noted Date Resolved Date Supervision of other normal 05/20/2007 03/26/2012 documented as of this encounter (statuses as of 08/02/2021) [address]07-2008 History of Past illness Narrative* Problem Noted Date Resolved Date Supervision of other normal 05/20/2007 03/26/2012 documented as of this encounter (statuses as of 10/17/2021) [facility] of Past illness Narrative* Problem Noted Date Resolved Date Supervision of other normal 05/20/2007 03/26/2012 documented as of this encounter (statuses as of 10/18/2021) [address]07-2008 History of Past illness Narrative* Problem Noted Date Resolved Date Supervision of other normal 05/20/2007 03/26/2012 documented as of this encounter (statuses as of 10/18/2021) [address]07-2008 History of Past illness Narrative* Problem Noted Date Resolved Date Supervision of other normal 05/20/2007 03/26/2012 documented as of this encounter (statuses as of 11/20/2021) [address]07-2008 History of Past illness Narrative* Problem Noted Date Resolved Date Supervision of other normal 05/20/2007 03/26/2012 documented as of this encounter (statuses as of 01/06/2022) [address]07-2008 History of Past illness Narrative* Problem Noted Date Resolved Date Supervision of other normal 05/20/2007 03/26/2012 documented as of this encounter (statuses as of 05/18/2022) [address]07-2008 History of Past illness Narrative* Problem Noted Date Resolved Date Supervision of other normal 05/20/2007 03/26/2012 documented as of this encounter (statuses as of 07/18/2022) [address] History of Past illness Narrative* Problem Noted Date Resolved Date Supervision of other normal 05/20/2007 03/26/2012 documented as of this encounter (statuses as of 08/25/2022) [address]07-2008 History of Past illness Narrative* Problem Noted Date Resolved Date Supervision of other normal 05/20/2007 03/26/2012 documented as of this encounter (statuses as of 08/26/2022) [address]07-2008 History of Past illness Narrative* Problem Noted Date Diagnosed Date Resolved Date Supervision of other normal 05/20/2007 03/26/2012 documented as of this encounter (statuses as of 01/12/2023) [address]07-2008 History of Past illness Narrative* Problem Noted Date Diagnosed Date Resolved Date Supervision of other normal 05/20/2007 03/26/2012 documented as of this encounter (statuses as of 04/03/2023) [address]07-2008 History of Past illness Narrative* Problem Noted Date Diagnosed Date Resolved Date Supervision of other normal 05/20/2007 03/26/2012 documented as of this encounter (statuses as of 07/20/2023) [facility] note* Diagnosis Encounter for screening mammogram for malignant neoplasm of breast Other screening mammogram documented in this encounter [facility]* Diagnosis Breast asymmetry Other specified disorders of breast documented in this encounter [facility]* Diagnosis Strep pharyngitis- Primary Streptococcal sore throat documented in this encounter [facility] noteNo assessment information availableWCleveland Clinic [facility] Work Phone: Evaluation note* Diagnosis Hypertension, unspecified type- Primary documented in this encounter [facility]* Diagnosis Sore throat- Primary Acute pharyngitis documented in this encounter [facility]* Diagnosis Bacterial conjunctivitis- Primary Other conjunctivitis documented in this encounter [facility]* Diagnosis Encounter for screening mammogram for breast cancer [facility] Diagnosis Viral URI with cough- Primary Acute upper respiratory infections of unspecified site documented in this encounter [facility]* Diagnosis Wellness examination- Primary Hypertension, unspecified type Post-cholecystectomy syndrome Postcholecystectomy syndrome Chronic constipation Unspecified constipation CAROLINE (obstructive sleep apnea) Obstructive sleep apnea (adult) (pediatric) Situational stress Other psychological or physical stress, not elsewhere classified Hyperlipidemia, mixed Mixed hyperlipidemia Women's annual routine gynecological examination Screening for colon cancer Special screening for malignant neoplasms, colon Screening for diabetes mellitus documented in this encounter [facility]* Diagnosis Allergic contact dermatitis due to plants, except food- Primary Contact dermatitis and other eczema due to plants (except food) documented in this encounter [facility]* Diagnosis Encounter for medical assessment- Primary documented in this encounter [facility]* Diagnosis Poison tiffanie- Primary Contact dermatitis and other eczema due to plants (except food) documented in this encounter [facility]* Diagnosis Screening for colon cancer Special screening for malignant neoplasms, colon BMI 40.0-44.9, adult (HCC) Body Mass Index 40.0-44.9, adult documented in this encounter [facility]* Diagnosis Encounter for screening mammogram for breast cancer documented in this encounter [facility]* Diagnosis Screening for colon cancer- Primary Special screening for malignant neoplasms, colon documented in this encounter [facility]* Diagnosis Encounter for gynecological examination (general) (routine) without abnormal findings- Primary Screening for cervical cancer Screening for malignant neoplasm of the cervix Encounter for screening for human papillomavirus (HPV) Special screening examination for human papillomavirus (HPV) Encounter for screening mammogram for breast cancer Dense breast tissue documented in this encounter [facility]* Diagnosis Hypertension, unspecified type documented in this encounter [facility]* Diagnosis Hypertension, unspecified type documented in this encounter [facility]* Diagnosis Encounter for screening mammogram for breast cancer Dense breast tissue documented in this encounter [facility]* Diagnosis Encounter for gynecological examination (general) (routine) without abnormal findings- Primary Encounter for screening mammogram for breast cancer Abnormal uterine bleeding Unspecified disorder of menstruation and other abnormal bleeding from female genital tract documented in this encounter [facility]* Diagnosis Abnormal uterine bleeding Unspecified disorder of menstruation and other abnormal bleeding from female genital tract documented in this encounter [facility] for referral (narrative)* Diagnostic Procedure Only (Routine) - Closed Specialty Diagnoses / Procedures Referred By Quiana t Referred To Contact [facility] Diagnoses Encounter for screening mammogram for malignant neoplasm of breast Procedures THELMA SCREENING SCREENING MAMMOGRAPHY BI 2-VIEW BREAST INC Marilee Jackson APRN.CNP [address] [place] [address] [facility] [address] [place] [address] Referral ID Status Reason Start Date Expiration Date V isits Requested Visits Authorized [id number] Closed Auto-Generate d Referral 11/30/2020 12/30/2021 1 1 [facility] for referral (narrative)* Diagnostic Procedure Only (Routine) - Pending Review Specialty Diagnoses / Procedures Referred By Quiana alston Referred To Contact [facility] Diagnoses Encounter for screening mammogram for breast cancer Procedures THELMA SCREENING W MARCO ANTONIO SCREENING DIGITAL BREAST TOMOSYNTHESIS BI SCREENING MAMMOGRAPHY BI 2-VIEW BREAST INC CAD Duane Rowland MD [address] [place] [address] [facility] [address] [place] [address] Referral ID Status Reason Start Date Expiration Date Visits Requested Visits Authorized [id number] Pending Review Auto-Generat ed Referral 01/07/2023 02/06/2024 1 1 T [facility] for referral (narrative)* Outpatient Procedure (Routine) - Authorized Specialty Diagnoses / Procedures Referred By Quiana alston Referred To Contact [facility] Diagnoses Screening for colon cancer Procedures COLONOSCOPY SCREENING COLONOSCOPY FLX DX W/COLLJ SPEC WHEN Jeaneth Morrow MD [address] [facility] [address] [address] Referral ID Status Reason Start Date Expiration Date Visits Requested Visits Authorized [id number] Authorized Auto-Generat ed Referral 09/21/2023 09/20/2024 1 1 [facility] for referral (narrative)* Outpatient Procedure (Routine) - Closed Specialty Diagnoses / Procedures Referred By Quiana alston Referred To Contact [facility] Diagnoses Screening for colon cancer Procedures COLONOSCOPY SCREENING COLONOSCOPY FLX DX W/COLLJ SPEC WHEN Jeaneth Morrow MD [address] [place] [address] [facility] Disease [address] [address] Referral ID Status Reason Start Date Expiration Date V isits Requested Visits Authorized [id number] Closed Auto-Generate d Referral 09/21/2023 09/20/2024 1 1 [facility] for referral (narrative)* Diagnostic Procedure Only (Routine) - Authorized Specialty Diagnoses / Procedures Referred By Quiana alston Referred To Contact [facility] Diagnoses Women's annual routine gynecological examination Encounter for screening mammogram for breast cancer Dense breast tissue Procedures THELMA SCREENING W MARCO ANTONIO SCREENING DIGITAL BREAST TOMOSYNTHESIS BI SCREENING MAMMOGRAPHY BI 2-VIEW BREAST INC Maximiliano Flaherty APRN.CNP [address] [place] [address] [facility] [address] [place] [address] Referral ID Status Reason Start Date Expiration Date Visits Requested Visits Authorized [id number] Authorized Auto-Generat ed Referral 11/02/2023 12/01/2024 1 1 [facility] for visit Narrative* Diagnostic Procedure Only (Routine) - Closed Specialty Diagnoses / Procedures Referred By Contac t Referred To Contact [facility] Diagnoses Encounter for screening mammogram for malignant neoplasm of breast Procedures THELMA SCREENING SCREENING MAMMOGRAPHY BI 2-VIEW BREAST INC CAD Marilee Sanon, MEDIA CLERK.CLOTH CUTTER [address] [place] [address] [facility] [address] [place] [address] Referral ID Status Reason Start Date Expiration Date V isits Requested Visits Authorized [id number] Closed Auto-Generate d Referral 11/30/2020 12/30/2021 1 1 [facility] for visit Narrative* Diagnostic Procedure Only (Routine) - Closed Specialty Diagnoses / Procedures Referred By Quiana t Referred To Contact [facility] Diagnoses Breast asymmetry Procedures THELMA DIAGNOSTIC BILAT DIAGNOSTIC MAMMOGRAPHY COMPUTER-AIDED DETCJ BI Marilee Sanon, MEDIA CLERK.CLOTH CUTTER [address] [place] [address] [facility] [address] [place] [address] Referral ID Status Reason Start Date Expiration Date V isits Requested Visits Authorized [id number] Closed Auto-Generate d Referral 10/16/2021 11/15/2022 1 1 [facility] for visit Narrative* Diagnostic Procedure Only (Routine) - Closed Specialty Diagnoses / Procedures Referred By Quiana t Referred To Contact [facility] Diagnoses Encounter for screening mammogram for breast cancer Procedures THELMA SCREENING W MARCO ANTONIO SCREENING DIGITAL BREAST TOMOSYNTHESIS BI SCREENING MAMMOGRAPHY BI 2-VIEW BREAST INC CAD Duane Rowland MD [address] [place] [address] [facility] [address] [place] [address] Referral ID Status Reason Start Date Expiration Date V isits Requested Visits Authorized [id number] Closed Auto-Generate d Referral 01/07/2023 02/06/2024 1 1 [facility] for visit Narrative* Outpatient Procedure (Routine) - Closed Specialty Diagnoses / Procedures Referred By Quiana t Referred To Contact [facility] Diagnoses Screening for colon cancer Procedures COLONOSCOPY SCREENING COLONOSCOPY FLX DX W/COLLJ SPEC WHEN Jeaneth Morrow MD [address] [place] [address] [facility] [address] [place] [address] Referral ID Status Reason Start Date Expiration Date V isits Requested Visits Authorized [id number] Closed Auto-Generate d Referral 09/21/2023 09/20/2024 1 1 [facility] for visit Narrative* Diagnostic Procedure Only (Routine) - Closed Specialty Diagnoses / Procedures Referred By Quiana t Referred To Contact [facility] Diagnoses Women's annual routine gynecological examination Encounter for screening mammogram for breast cancer Dense breast tissue Procedures THELMA SCREENING W MARCO ANTONIO SCREENING DIGITAL BREAST TOMOSYNTHESIS BI SCREENING MAMMOGRAPHY BI 2-VIEW BREAST INC CAD Maximiliano Marroquin APRN.CLOTH CUTTER [address] [place] [place] [address] Phone: tel: fax: [facility] [address] [place] [address] Referral ID Status Reason Start Date Expiration Date V isits Requested Visits Authorized [id number] Closed Auto-Generate d Referral 11/02/2023 12/01/2024 1 1 [facility] for visit Narrative* Diagnostic Procedure Only (Routine) - Closed Specialty Diagnoses / Procedures Referred By Quiana alston Referred To Contact [facility] Diagnoses Abnormal uterine bleeding Procedures PELVIC US WHI US PELVIC NONOBSTETRIC REAL-TIME IMAGE COMPLETE Maximiliano Marroquin APRN.CLOTH CUTTER [address] [place] [place] [address] Phone: tel: fax: [facility] [address] [place] [address] Referral ID Status Reason Start Date Expiration Date V isits Requested Visits Authorized [id number] Closed Auto-Generate d Referral 11/07/2024 04/12/2025 1 1 [facility] Summary Purpose Family History No Family History Records Found Relationship Condition Age at Onset Recorded Date/T zbigniew Unknown Family History?Diabetes Unknown Dec 2:57am Family History?Diabetes Unknown Dec 2:57am Advance Directives No Advanced Directives Records FoundDocuments on File Type Date Recorded 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 Advance Directive(s) 12/18/2015 9:29 AM Documents on File Type Date Recorded 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 Advance Directive(s) 12/18/2015 9:29 AM Advance Directive Response Recorded Date/ Time Advance Directives No March 11:26am Living Will No March 27, 016 11:26am Power of Environmental Science Instructor No March 27, 2016 11:26am Reason for Referral Specialty Diagnoses / Procedures Referred By Contac t Referred To Contact General Surgery Diagnoses Screening for colon cancer Procedures CONSULT TO GENERAL SURGERY OFFICE/OUTPATIENT NEW HIGH MDM 60 MINUTES Marilee Sanon APRN.CLOTH CUTTER [address] [place] [address] Referral ID Status Reason Start Date Expiration Date Visits Requested Visits Authorized [id number] Authorized PCP Requested Referral 08/07/2023 08/06/2024 1 1 Specialty Diagnoses / Procedures Referred By Contac t Referred To Contact Gynecology Diagnoses Women's annual routine gynecological examination Procedures CONSULT TO GYNECOLOGY OFFICE/OUTPATIENT NEW [facility] MDM 60 MINUTES Marilee Sanon APRN.CLOTH CUTTER [address] [place] [address] Referral ID Status Reason Start Date Expiration Date Visits Requested Visits Authorized [id number] Authorized PCP Requested Referral Auto-Generate d Referral 08/07/2023 08/06/2024 1 1 Additional Source Comments INFORMATION SOURCE (unrecogn ized section and content) DATE CREATED AUTHOR 03/03/2018 [facility] DATE CREATED AUTHOR AUTHOR'S ORGANIZ ATION 07/22/2022 [facility] DATE CREATED AUTHOR AUTHOR'S ORGANIZ ATION 11/21/2024 [facility] Source Comments (unrecognize d section and content) In the event this informatio n is protected by the Federal Confidentiality of Alcohol and Drug Abuse Patient Records regulations: The Federal rules restrict any use of the information to criminally investigate or prosecute any alcohol or drug abuse patient.[facility] ClinicIn the event this information is protected by the Federal Confidentiality of Alcohol and Drug Abuse Patient Records regulations: The Federal rules restrict any use of the information to criminally investigate or prosecute any alcohol or drug abuse patient.[facility] the event this information is protected by the Federal Confidentiality of Alcohol and Drug Abuse Patient Records regulations: The Federal rules restrict any use of the information to criminally investigate or prosecute any alcohol or drug abuse patient.[facility] Campus[facility] the event this information is protected by the Federal Confidentiality of Alcohol and Drug Abuse Patient Records regulations: The Federal rules restrict any use of the information to criminally investigate or prosecute any alcohol or drug abuse patient.[facility] Campus[facility] the event this information is protected by the Federal Confidentiality of Alcohol and Drug Abuse Patient Records regulations: The Federal rules restrict any use of the information to criminally investigate or prosecute any alcohol or drug abuse patient.[facility] Campus[facility] the event this information is protected by the Federal Confidentiality of Alcohol and Drug Abuse Patient Records regulations: The Federal rules restrict any use of the information to criminally investigate or prosecute any alcohol or drug abuse patient.[facility] Campus[facility] the event this information is protected by the Federal Confidentiality of Alcohol and Drug Abuse Patient Records regulations: The Federal rules restrict any use of the information to criminally investigate or prosecute any alcohol or drug abuse patient.[facility] Campus[facility] the event this information is protected by the Federal Confidentiality of Alcohol and Drug Abuse Patient Records regulations: The Federal rules restrict any use of the information to criminally investigate or prosecute any alcohol or drug abuse patient.[facility] CampusIn the event this information is protected by the Federal Confidentiality of Alcohol and Drug Abuse Patient Records regulations: The Federal rules restrict any use of the information to criminally investigate or prosecute any alcohol or drug abuse patient.[facility] CampusIn the event this information is protected by the Federal Confidentiality of Alcohol and Drug Abuse Patient Records regulations: The Federal rules restrict any use of the information to criminally investigate or prosecute any alcohol or drug abuse patient.[facility] CampusIn the event this information is protected by the Federal Confidentiality of Alcohol and Drug Abuse Patient Records regulations: The Federal rules restrict any use of the information to criminally investigate or prosecute any alcohol or drug abuse patient.[facility] CampusIn the event this information is protected by the Federal Confidentiality of Alcohol and Drug Abuse Patient Records regulations: The Federal rules restrict any use of the information to criminally investigate or prosecute any alcohol or drug abuse patient.[facility] CampusIn the event this information is protected by the Federal Confidentiality of Alcohol and Drug Abuse Patient Records regulations: The Federal rules restrict any use of the information to criminally investigate or prosecute any alcohol or drug abuse patient.[facility] CampusIn the event this information is protected by the Federal Confidentiality of Alcohol and Drug Abuse Patient Records regulations: The Federal rules restrict any use of the information to criminally investigate or prosecute any alcohol or drug abuse patient.[facility] CampusIn the event this information is protected by the Federal Confidentiality of Alcohol and Drug Abuse Patient Records regulations: The Federal rules restrict any use of the information to criminally investigate or prosecute any alcohol or drug abuse patient.[facility] CampusIn the event this information is protected by the Federal Confidentiality of Alcohol and Drug Abuse Patient Records regulations: The Federal rules restrict any use of the information to criminally investigate or prosecute any alcohol or drug abuse patient.[facility] CampusIn the event this information is protected by the Federal Confidentiality of Alcohol and Drug Abuse Patient Records regulations: The Federal rules restrict any use of the information to criminally investigate or prosecute any alcohol or drug abuse patient.[facility] CampusIn the event this information is protected by the Federal Confidentiality of Alcohol and Drug Abuse Patient Records regulations: The Federal rules restrict any use of the information to criminally investigate or prosecute any alcohol or drug abuse patient.[facility] CampusIn the event this information is protected by the Federal Confidentiality of Alcohol and Drug Abuse Patient Records regulations: The Federal rules restrict any use of the information to criminally investigate or prosecute any alcohol or drug abuse patient.[facility] CampusIn the event this information is protected by the Federal Confidentiality of Alcohol and Drug Abuse Patient Records regulations: The Federal rules restrict any use of the information to criminally investigate or prosecute any alcohol or drug abuse patient.[facility] CampusIn the event this information is protected by the Federal Confidentiality of Alcohol and Drug Abuse Patient Records regulations: The Federal rules restrict any use of the information to criminally investigate or prosecute any alcohol or drug abuse patient.[facility] CampusIn the event this information is protected by the Federal Confidentiality of Alcohol and Drug Abuse Patient Records regulations: The Federal rules restrict any use of the information to criminally investigate or prosecute any alcohol or drug abuse patient.[facility] CampusIn the event this information is protected by the Federal Confidentiality of Alcohol and Drug Abuse Patient Records regulations: The Federal rules restrict any use of the information to criminally investigate or prosecute any alcohol or drug abuse patient.[facility] CampusIn the event this information is protected by the Federal Confidentiality of Alcohol and Drug Abuse Patient Records regulations: The Federal rules restrict any use of the information to criminally investigate or prosecute any alcohol or drug abuse patient.[facility] CampusIn the event this information is protected by the Federal Confidentiality of Alcohol and Drug Abuse Patient Records regulations: The Federal rules restrict any use of the information to criminally investigate or prosecute any alcohol or drug abuse patient.[facility] CampusIn the event this information is protected by the Federal Confidentiality of Alcohol and Drug Abuse Patient Records regulations: The Federal rules restrict any use of the information to criminally investigate or prosecute any alcohol or drug abuse patient.[facility] CampusIn the event this information is protected by the Federal Confidentiality of Alcohol and Drug Abuse Patient Records regulations: The Federal rules restrict any use of the information to criminally investigate or prosecute any alcohol or drug abuse patient.[facility] CampusIn the event this information is protected by the Federal Confidentiality of Alcohol and Drug Abuse Patient Records regulations: The Federal rules restrict any use of the information to criminally investigate or prosecute any alcohol or drug abuse patient.[facility] CampusIn the event this information is protected by the Federal Confidentiality of Alcohol and Drug Abuse Patient Records regulations: The Federal rules restrict any use of the information to criminally investigate or prosecute any alcohol or drug abuse patient.[facility] CampusIn the event this information is protected by the Federal Confidentiality of Alcohol and Drug Abuse Patient Records regulations: The Federal rules restrict any use of the information to criminally investigate or prosecute any alcohol or drug abuse patient.[facility] CampusIn the event this information is protected by the Federal Confidentiality of Alcohol and Drug Abuse Patient Records regulations: The Federal rules restrict any use of the information to criminally investigate or prosecute any alcohol or drug abuse patient.[facility] Reason for Visit (unrecogniz ed section and content) Reason Comments [facility]NS results Reason Comments Results Labs Reason Comments Results Mammogram Reason Onset Date Comments Refill Request 01/04/2022 Reason Comments Pain, Throat Pt reported throat p ain, x4 days. Reason Comments Hospital Follow Up Reason Comments Sore Throat Sore throat x3 days. Nasal drainage and left ear congestion. Reason Comments Eye Problem left eye red and soraida inage x this afternoon Reason Comments Sinus Problem Congestion, cough, w heezing x 6 days Reason Onset Date Comments colorectal cancer screening 07/15/2023 Reason Comments Physical Annual Wellness Reason Comments Patient Update Reason Comments Poison Tiffanie Reason Comments Poison Tiffanie Reason Onset Date Comments Escalation of Care 09/19/2023 Reason Comments Mouth/Lip Problem Reason Comments poison tiffanie Reason Comments Consult colonoscopy Specialty Diagnoses / Procedures Referred By Contac t Referred To Contact General Surgery Diagnoses Screening for colon cancer Procedures CONSULT TO GENERAL SURGERY OFFICE/OUTPATIENT [facility] MDM 60 MINUTES Marilee Sanon, NATALYA.CL[employer] CUTTER [address] [place] [address] Referral ID Status Reason Start Date Expiration Date V isits Requested Visits Authorized [id number] Closed PCP Requested Referral 08/07/2023 08/06/2024 1 1 Reason Comments Well Woman Specialty Diagnoses / Procedures Referred By Contac t Referred To Contact Gynecology Diagnoses Women's annual routine gynecological examination Procedures CONSULT TO GYNECOLOGY OFFICE/OUTPATIENT [facility] MDM 60 MINUTES Marilee Sanon, NATALYA.CL[employer] C[employer]TER [address] [place] [id number] Referral ID Status Reason Start Date Expiration Date V isits Requested Visits Authorized [id number] Closed PCP Requested Referral Auto-Generated Referral 08/07/2023 08/06/2024 1 1 Reason Onset Date Comments Refill Request 12/04/2023 Reason Onset Date Comments Refill Request 05/28/2024 Reason Comments [facility] Care Teams (unrecognized sec tion and content) Beekeeper Farmer Relationship Specialty Start Date End Date Duane Rowland MD [address] [place], [place] [id number] PCP - General 11/01/09 Beekeeper Farmer Relationship Specialty Start Date End Date Duane Rowland MD [address] [place], [place] [id number] PCP - General 11/01/09 Beekeeper Farmer Relationship Specialty Start Date End Date Duane Rowland MD [address] [place], [place] [id number] PCP - General 11/01/09 Beekeeper Farmer Relationship Specialty Start Date End Date Duane Rowland MD [address] [facility] [place] [address] PCP - General 11/01/09 Beekeeper Farmer Relationship Specialty Start Date End Date Duane Rowland MD [address] [facility] [place] [address] PCP - General 11/01/09 Team Status: Active Member Role Status Dates Dr. Duane Rowland MD Family Provider Active Dr. Duane Rowland MD Primary Care Provider Active Team Status: Inactive Member Role Status Dates Dr. Duane Rowland MD Primary Care Provider Active Dr. Debora Tolentino MD Emergency Provider Active Beekeeper Farmer Relationship Specialty Start Date End Date Duane Rowland MD [address] [place] [address] PCP - General 11/01/09 Beekeeper Farmer Relationship Specialty Start Date End Date Duane Rowland MD [address] [place] [address] PCP - General 11/01/09 Beekeeper Farmer Relationship Specialty Start Date End Date Duane Rowland MD [address] [place] [address] PCP - General 11/01/09 Beekeeper Farmer Relationship Specialty Start Date End Date Duane Rowland MD [address] [place] [address] PCP - General 11/01/09 Beekeeper Farmer Relationship Specialty Start Date End Date Duane Rowland MD [address] [facility] [place] [address] PCP - General 11/01/09 Beekeeper Farmer Relationship Specialty Start Date End Date Duane Rowland MD [address] [place] [address] PCP - General 11/01/09 Beekeeper Farmer Relationship Specialty Start Date End Date Duane Rowland MD [address] [place] [address] PCP - General 11/01/09 Beekeeper Farmer Relationship Specialty Start Date End Date Duane Rowland MD [address] [place] [address] PCP - General 11/01/09 Beekeeper Farmer Relationship Specialty Start Date End Date Daune Rowland MD [address] [place] [address] PCP - General 11/01/09 Beekeeper Farmer Relationship Specialty Start Date End Date Duane Rowland MD [address] [place] [address] PCP - General 11/01/09 Beekeeper Farmer Relationship Specialty Start Date End Date Duane Rowland MD [address] [place] [address] PCP - General 11/01/09 Beekeeper Farmer Relationship Specialty Start Date End Date Duane Rowland MD [address] [place] [address] PCP - General 11/01/09 Beekeeper Farmer Relationship Specialty Start Date End Date Duane Rowland MD [address] [place] [address] PCP - General 11/01/09 Beekeeper Farmer Relationship Specialty Start Date End Date Duane Rowland MD [address] [facility] [place] [address] PCP - General 11/01/09 Beekeeper Farmer Relationship Specialty Start Date End Date Duane Rowland MD [address] [place] [address] PCP - General 11/01/09 Marilee Sanon APRN.[employer] [address] [place] [address] [employer] [facility] 03/20/24 Alfredo Burleson APRN.[employer] [address] [place] [address] [employer] [facility] Family [facility] 03/29/24 Beekeeper Farmer Relationship Specialty Start Date End Date Duane Rowland MD [address] [place] [address] PCP - General 11/01/09 Alfredo Burleson APRN.[employer] [address] [place] [address] [employer] [facility] Family [facility] 03/29/24 Beekeeper Farmer Relationship Specialty Start Date End Date Duane Rowland MD [address] [place] [address] PCP - General 11/01/09 Alfredo Burleson APRN.[employer] [address] [place] [address] [employer] [facility] Family [facility] 03/29/24 Beekeeper Farmer Relationship Specialty Start Date End Date Duane Rowland MD [address] [place] [address] PCP - General 11/01/09 Alfredo Burleson APRN.[facility] [address] [facility] [id number] [employer] Family Medicine 03/29/24 Goals (unrecognized section and content) Goals may be documented in a n alternate section FOR RECORDS PERTAINING TO PATIENTS WHO ARE OR HAVE BEEN ENROLLED IN A CHEMICAL DEPENDENCY/SUBSTANCEABUSE PROGRAM, SOME INFORMATION MAY BE OMITTED. This clinical summary was aggregated from multiple sources. Caution should be exercised in using it in the provision of clinical care. This summary normalizes information from multiple sources, and as a consequence, information in this document may materially change the coding, format and clinical context of patient data. In addition, data may be omitted in some cases. CLINICAL DECISIONS SHOULD BE BASED ON THE PRIMARY CLINICAL RECORDS. [employer] provides no warranty or guarantee of the accuracy or completeness of information in this document.
[2024-11-27 22:29] LABS: Anion Gap 12 (5-15); BUN 12 mg/dL (4-19); BUN/Creat Ratio 17.7 RATIO (10-20); Calcium,Total 9.0 mg/dL (7.6-11.0); Carbon Dioxide 23.0 mmol/L (21.0-32.0); Chloride 104 mmol/L (98-108); Estimated Creatinine Clearance 115.17 ml/min (50-250); Glucose 102 mg/dL (70-99); Potassium 4.2 mmol/L (3.3-5.1)
[2024-11-27 22:29] LABS: Internal QC Validated? YES +Cl - CLEAR BKGD; Pregnancy, Serum, hCG Quali. NEGATIVE Negative; Record Kit Lot#, Serum Preg. 962302
[2024-11-27 22:47] VITALS: BP 125/83; PULSE 83; RESP 15; O2SAT 98
[2024-11-27 23:16] VITALS: BP 122/88; PULSE 84; RESP 16; TEMP 36.4; O2SAT 99
== END 2024-11-27 23:16 | disposition home or self-care (01) ==
PROVIDERS: Emergency Provider Emergency Medicine; PCP Family Medicine; Visit Provider Emergency Medicine
DX: N93.9 Abnormal uterine and vaginal bleeding, unspecified (principal); I10 Essential (primary) hypertension; Z79.899 Other long term (current) drug therapy
CPT/HCPCS: 80048; 84703; 85027; 99283; A4216